=== PATIENT | female | born 1970 | race Caucasian/White ===

== ENCOUNTER 2016-07-09 18:37 | Emergency (ER) | payer BC ==
[2016-07-09 19:26] VITALS: BP 153/88
--- NOTE | 2016-07-09 20:01 | UC ---
Respiratory Complaint HPI - HPI Summary HPI Summary: PT C/O WORSENING SINUS PAIN AND PRESSURE OVER THE PAST WEEK. WORSE ON THE RIGHT THAN THE LEFT. HAS H/O RADICAL SINUS SURGERY IN 2008 IN [place]. HAS LOW GRADE FEVER AROUND 100.3. STATES HER NASAL PASSAGES AND SINUSES FEEL LIKE THEY ARE FILLED WITH FLUID. SHE USES A RINSE ROUTINELY AND FEELS IT IS NOT DRAINING IT NORMALLY DOES. REPORTS A FOUL ODOR WITHIN HER NASAL PASSAGES. - History of Current Complaint Chief Complaint: UCRespiratory Stated Complaint: SINUS COMPLAINT Time Seen by Provider: 07/09/16 19:45 Hx Obtained From: Patient, Family/Wic Site Coordinator - Hx Last Menstrual Period: 06/10/16 Onset/Duration: Gradual Onset, Lasting Days, Still Present Timing: Constant Severity Initially: Moderate Severity Currently: Moderate Pain Intensity: 10 - SITTING COMFORTABLY IN ROOM IN NO ACUTE DISTRESS Pain Scale Used: 0-10 Numeric Aggravating Factors: Nothing Alleviating Factors: Nothing Associated Signs And Symptoms: Positive: Fever, Nasal Congestion, Sinus Discomfort. Negative: Wheezing, Hemoptysis, Dizziness, Calf Pain, Calf Swelling , Edema, URI, Hoarseness - Allergies/Home Medications Allergies/Adverse Reactions: Allergies Allergy/AdvReac Type Severity Reaction Status Date / Time Hydrocodone Allergy Severe shallow Verified 07/09/16 19:27 breathing Hydromorphone [From Dilaudid] Allergy Intermediate Severe Verified 07/09/16 19: 27 migraine/ GI symptoms Midazolam [From Versed] Allergy Intermediate anxiety/ Verified 07/09/16 19:27 hallucinations Codeine Allergy shallow Verified 07/09/16 19:27 breathing Lorazepam [From Ativan] Allergy anxiety/helio Verified 07/09/16 19:27 lucinations Metoclopramide [From Reglan] Allergy panic Verified 07/09/16 19:27 attacks Oxycodone [From Percocet] Allergy shallow Verified 07/09/16 19:27 breathing Prochlorperazine Allergy tongue Verified 07/09/16 19:27 [From Compazine] swelling Topiramate [From Topamax] Allergy shaking Verified 07/09/16 19:27 Valproic Acid [From Depakote] Allergy Hallucinati Verified 07/09/16 19:27 ons DHE Allergy Intermediate According Uncoded 11/26/15 16:57 to patient Home Medications: Home Medications Norethindrone Acetate 5 mg PO 07/09/16 [History] PMH/Surg Hx/FS Hx/Imm Hx Endocrine History Of: Denies: Diabetes, Thyroid Disease, Hyperthyroidism, Hypothyroidism Cardiovascular History Of: Reports: Cardiac Disorders, Hypertension Denies: Pacemaker/ICD Respiratory History Of: Denies: COPD, Asthma GI/ History Of: Denies: Ulcer Neurological History Of: Denies: TIA, Seizures Psychological History Of: Denies: Anxiety, Depression Cancer History Of: Denies: Breast Cancer - Surgical History Surgical History: Yes Surgery Procedure, Year, and Place: bunion removed. sinus surgery 2007. 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 - Family History Known Family History: Positive: Cardiac Disease, Hypertension - Social History Alcohol Use: None Substance Use Type: None Smoking Status (MU): Never Smoked Tobacco Have You Smoked in the Last Year: No Review of Systems Constitutional: Fever ENT: Nasal Discharge, Other - SINUS PRESSURE Respiratory: Negative Cardiovascular: Negative Gastrointestinal: Negative Neurological: Headache All Other Systems Reviewed And Are Negative: Yes Physical Exam Triage Information Reviewed: Yes Appearance: Well-Appearing, No Pain Distress, Well-Nourished Vital Signs: Initial Vital Signs Temp 98.3 F 07/09/16 19:23 Pulse 105 07/09/16 19:23 Resp 12 07/09/16 19:23 BP 153/88 07/09/16 19:23 Pulse Ox 100 07/09/16 19:23 Vital Signs Reviewed: Yes Eyes: Positive: Conjunctiva Clear ENT: Positive: Hearing grossly normal, Pharynx normal, TMs normal Neck: Positive: Supple, Nontender, No Lymphadenopathy Respiratory Exam: Normal Cardiovascular: Positive: Tachycardia Abdomen Description: Positive: Soft Musculoskeletal: Positive: No Edema Neurological: Positive: Alert Psychological: Positive: Normal Response To Family, Age Appropriate Behavior Skin: Negative: rashes UC Diagnostic Evaluation - Laboratory O2 Sat by Pulse Oximetry: 100 Respiratory Course/Dx - Differential Dx/Diagnosis Provider Diagnoses: ACUTE SINUSITIS Discharge - Discharge Plan Condition: Stable Disposition: HOME Prescriptions: Amoxicillin/Clavulanate TAB* [Augmentin TAB 875*] 875 mg PO BID #28 tab Patient Education Materials: Sinusitis (ED) Referrals: Laurel Quintana MD [Primary Care Provider] - If Needed Additional Instructions: AUGMENTIN TO COVER FOR ACUTE BACTERIAL SINUSITIS. FOLLOW-UP WITH ENT. KEEP YOUR APPT IN [place] NEXT WEEK OR CALL THE NUMBER BELOW FOR AN APPT WITH ONE OF OUR LOCAL ENT PHYSICIANS. ENT IN [place] [facility] AND [place] [phone]
== END 2016-07-09 20:20 | disposition home or self-care (01) ==
LOC: UCEAST 18:37
DX: J01.90 Acute sinusitis, unspecified (principal); Z88.5 Allergy status to narcotic agent; Z88.8 Allergy status to other drugs, medicaments and biological substances
CPT/HCPCS: 99212; G0463

== ENCOUNTER 2018-03-20 19:11 | Emergency (ER) | payer BC ==
[2018-03-20 19:20] VITALS: BP 141/100
[2018-03-20] MEDS ORDERED: Tetracaine 0.5% OPTH.SOL 4 ML* 1 DROP BTL BOTH EYES ONE (19:31)
[2018-03-20] MEDS ORDERED: Fluorescein Sodium TOPICAL* 1 MG TEST STRIP OPHTHALMIC ONE (19:32)
[2018-03-20] MEDS ORDERED: Eye Irrigation Solution 30 ML BOTTLE BOTH EYES ONE (19:33)
[2018-03-20] MEDS ORDERED: Ondansetron ODT TAB* 4 MG PO ONE (19:51)
[2018-03-20] MEDS ORDERED: Ondansetron ODT TAB* 4 MG ONE (19:53)
--- NOTE | 2018-03-20 19:53 | UC ---
Eye Complaint HPI - HPI Summary HPI Summary: Was spraying chlorox connie cleaner overhead and some of the mist drifted down into both eyes. About 6:30 PM - History of Current Complaint Chief Complaint: UCEye Stated Complaint: CHEMICAL IN EYES Time Seen by Provider: 03/20/18 19:30 Hx Obtained From: Patient Hx Last Menstrual Period: 02/22/18 ?: No Onset/Duration: Sudden Onset, Lasting Hours - 1 hour Timing: Constant Severity Initially: Moderate Severity Currently: Moderate Pain Intensity: 6 Location of Injury: Conjunctiva Character: Sharp Aggravating Factor(s): Light, Blinking Alleviating Factor(s): Nothing Associated Signs And Symptoms: Positive: Photophobia. Negative: Drainage (Clear ), Drainage (Purulent), Vision Impairment Bilateral - Allergies/Home Medications Allergies/Adverse Reactions: Allergies Allergy/AdvReac Type Severity Reaction Status Date / Time codeine Allergy SHALLOW Verified 03/20/18 19:55 BREATHING divalproex sodium Allergy Hallucinati Verified 03/20/18 19:55 [From Depakote] ons hydrocodone Allergy SHALLOW Verified 03/20/18 19:55 BREATHING hydromorphone [From Dilaudid] Allergy SEVERE Verified 03/20/18 19:55 MIGRAINE, GI SYMPTOMS lorazepam [From Ativan] Allergy ANXIETY, Verified 03/20/18 19:55 HALLUCINATIONS metoclopramide [From Reglan] Allergy PANIC Verified 03/20/18 19:55 ATTACKS midazolam [From Versed] Allergy ANXIETY, Verified 03/20/18 19:55 HALLUCINATIONS oxycodone Allergy SHALLOW Verified 03/20/18 19:55 BREATHNG prochlorperazine Allergy TONGUE Verified 03/20/18 19:55 [From Compazine] SWELLING topiramate [From Topamax] Allergy SHAKING Verified 03/20/18 19:55 DHE* Allergy ACCORDING Uncoded 03/20/18 19:55 TO PT Home Medications: Home Medications Atenolol TAB* [Tenormin TAB* 25 MG] 12.5 mg PO DAILY 03/20/18 [History Confirmed 03/20/18] Mupirocin NASAL OINT (NF) [Bactroban NASAL OINT (NF)] 03/20/18 [History] PMH/Surg Hx/FS Hx/Imm Hx - Additional Past Medical History Additional PMH: Fibromyalgia - Surgical History Surgical History: Yes Surgery Procedure, Year, and Place: bunion removed. sinus surgery 2007. 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, UTERINE POLYP REMOVED 2017 - Family History Known Family History: Positive: Cardiac Disease, Hypertension - Social History Occupation: Employed Full-time Lives: With Family Alcohol Use: None Substance Use Type: None Smoking Status (MU): Never Smoked Tobacco Have You Smoked in the Last Year: No Review of Systems All Other Systems Reviewed And Are Negative: Yes Eyes: Positive: Eye Redness, Photophobia Musculoskeletal: Positive: Myalgia Is Patient Immunocompromised?: No Physical Exam Triage Information Reviewed: Yes Appearance: Well-Appearing, Well-Nourished, Pain Distress - moderate Vital Signs: Initial Vital Signs Temp 97.7 F 03/20/18 19:15 Pulse 92 03/20/18 19:15 Resp 18 03/20/18 19:15 BP 141/100 03/20/18 19:15 Pulse Ox 100 03/20/18 19:15 Vital Signs Reviewed: Yes Eyes: Positive: Conjunctiva Inflamed, Other: - disc's sharp fundi benign ENT: Positive: Pharynx normal, TMs normal Neck exam: Normal Respiratory Exam: Normal Cardiovascular Exam: Normal Abdominal Exam: Normal Musculoskeletal Exam: Normal Neurological Exam: Normal Psychological Exam: Normal Skin Exam: Normal Re-Evaluation - Re-Evaluation First Eval Change: Unchanged - still having pain. Fluorescein stain negative for uptake. Eye Complaint Course/Dx - Differential Dx/Diagnosis Differential Diagnosis/HQI/PQRI: Conjunctivitis, Corneal Abrasion, Keratitis Provider Diagnoses: Chemical conjunctivitis Discharge - Sign-Out/Discharge Documenting (check all that apply): Patient Departure All imaging exams completed and their final reports reviewed: No Studies - Discharge Plan Condition: Stable Disposition: HOME Patient Education Materials: [employer] [place] (ED) Referrals: Laurel Quintana MD [Primary Care Provider] - Additional Instructions: You can use ice for pain. Your bacitracin ointment would be fine to use as it could be soothing. - Billing Disposition and Condition Condition: STABLE Disposition: Home
[2018-03-20] MEDS ORDERED: NS 0.9% 1000 ML* 2,000 ML ONE (20:30)
--- OUTSIDE RECORDS SUMMARY | 2018-03-20 21:33 | XMS REPORT ---
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 Active Onset: 02/09/2012 Malaise and fatigue Cj Gusman M.D. Active Onset: 02/09/2012 Migraine variants, not intractable Cj Gusman M.D. Active Onset: 06/23/2014 Chronic fatigue syndrome Cj Gusman M.D. Active Onset: 06/23/2014 Dizziness and giddiness Cj Gusman M.D. Active Onset: 06/23/2014 Chronic Migraine W/Out Aura, Cj Gusman M.D. Active W/Intractable W/O Migrainosus Onset: 06/23/2014 Immunologic Cj Gusman M.D. Active Family History Date Family Member(s) Problem(s) Comments General Alzheimer's Disease Social History Type Date Description Comments Lives With ETOH Use Denies alcohol use Smoking Patient has never smoked Exercise Type/Frequency Exercises rarely Allergies, Adverse Reactions, Alerts Date Description Reaction Status Severity Comments 08/26/2010 Codeine active 08/26/2010 Hydrocodone active 08/26/2010 Depakote active 08/26/2010 Ativan active 08/26/2010 Reglan active 08/26/2010 Percocet active 08/26/2010 Dilaudid active 08/26/2010 Demerol active 08/26/2010 Compazine active 08/26/2010 Dhe active 09/19/2013 Topiramate active 10/08/2016 Uribel active Medications Medication Date Status Form Strength Qnty SIG Indications Ordering Provider Ondansetron 12/10 Active Tablets 4mg 90tab 1 tab by Juliet Dispers s mouth every Cowdery, 8 hours as M.D. needed for nausea Promethazine 02/21 Active Suppository 25mg 10uni [address] of ts rectum Cowdery, q-6-8 hours M.D. nausea as needed Zantac Active Tablets 150mg 60tab bid Unknown /0000 s Singulair Active Tablets 10mg 28tab 1 po qd Unknown /0000 s Lisinopril Active Tablets 10mg 90tab 1 tab po Unknown /0000 s daily Zomig Active Tablets 5mg 12tab 1 tablet at Juliet / s onset of Cowdery, headache as M.D. needed may repeat once in two hours: maximum 2 in 24 hours, maximum 2 days a week. Sudafed Active Tablets 30mg 20tab 1 po bid Unknown /0000 s prn Astelin Active Solution 137mcg/Sp 1mont 2 squirts Unknown /0000 ray atkinson in each nostril bid Nasonex Active Suspension 50mcg/Act 1unit 2 sprays to Unknown /0000 s each nostril once daily Azasite Active Solution 1% aply lower Unknown /0000 lid both eyes qhs prn blepharitis prn Gabapentin Active Tablets 600mg 1 1/2 tid Unknown /0000 Ariane Active Tablets 180mg 1 by mouth Unknown /0000 every day Nortriptyline Active Capsules 10mg 360ca take 4 Juliet / ps capsules by Cowdery, mouth at M.D. bedtime Lactulose Active Solution 10GM/15ML 3 droppers Unknown /0000 (30mg) by mouth every week as needed for constipatio n Tizanidine HCL Active Tablets 4mg 30tab take 1 Juliet s tablet by Cowconrady, mouth at M.D. bedtime Mupirocin Active Ointment 2% mix with Unknown saline, each nostril q day prn sinus infection Atenolol Active Tablets 25mg 1/2 by Unknown mouth every day Bacitracin Active Ointment 500Unit/G qhs Vilma, (Ophthalmic) / M Jenny, OD Norethindrone Active Tablets 0.35mg Take 1 Unknown Tablets By Mouth Every Day Benadryl Active Tablets 25mg 1 tab po qd Unknown Allergy / Vitamin D Active Tablets 1 by mouth Unknown every day Avenova Lash Active Solution spray into Unknown [place] / both eyes twice a day Vitamin D3 04/21 Hx Tablets 11671Flbm 12tab one tab by E55.9 s mouth once Wesley, - weekly for M.D. 03/04 Patient states she is no longer taking Pedialyte 01/15 Hx Solution 5760m Take as l directed Wesley, - every hour M.D. 02/19 as needed for dehydration Zofran Odt 01/06 Hx Tablets 8mg 30tab dissolve Dispers s one tablet Wesley, - by mouth M.D. 02/19 every hours as needed for nausea as directed as a one time quantity [id number] 02/11 Hx Chewtabs 1mg 90uni take one ts capsule/tab Wesley, - let prn M.D. 10/28 Cyanocobalamin 02/04 Hx Tablets Sub 2500mcg 90tab take one R76.0 s capsule/tab Wesley, - let daily M.D. 02/11 by mouth Ondansetron 10/07 Hx Tablets 8mg 90tab take 1 Dispers s under Cowlynn, - tongue q8 M.D. 12/10 hours needed nausea Ondansetron 11/08 Hx Tablets 4mg 30tab take 1-2 by Juliet Dispers s mouth Cowderbette, - w9ickty as M.D. 10/07 need for nausea Topiramate 01/26 Hx Caps 15mg 30cap take 1 po q Sprinkle s day as Estelita, - directed. M.D. 09/16 Ondansetron Odt 04/15 Hx Tablets 4mg 270ta take 1 po Dispers bs [id number] as Estelita, - need for M.D. 11/08 nausea Cymbalta 08/[address] Shamar 20mg 90cap 1 po qd s Endo, - M.D. 02/08 Jessica Hx Tablets .35mg 1tabs 1 po qd Unknown /0000 - 10/26 Gabapentin Hx Capsules 300mg 90cap 3 po tid Unknown /0000 s - 04/14 Fexofenadine Hx Tablets 180mg 90tab 1 po qd Unknown HCL /0000 s - 04/14 Naproxen Sodium Hx Tablets 220mg 60tab 1 po bid Unknown /0000 s prn - 04/14 Zofran Hx Tablets 4mg 40tab 1 q 6 hours Unknown /0000 s prn nausea - 04/14 Levaquin Hx Tablets 750mg 7tabs once daily Unknown /0000 - 04/14 Acetasol HC Hx Solution 2-1% 1bott 3-5 ggt Unknown /0000 le affected - ear bid prn 04/14 Gabapentin Hx Capsules 300mg 630ca 3 po q am, Unknown /0000 ps 3 po qnoon, - and 3 po 03/15 Bactrim Hx Tab 1 tab bid Unknown /0000 - 03/04 Prednisolone Hx Suspension 1% 1 drop each Unknown Acetate /0000 eye twice a - day prn 10/28 Erythromycin 00 Hx Ointment 5mg/GM 3.500 apply to Unknown /0000 gm affected - eyelid 05/04 every night /2014 at bedtime as needed Valtrex 00/00 Hx Tabs po bid Unknown /0000 - 07/19 Valtrex 00 Hx Tablets 1gm 1 by mouth Unknown /0000 bid (not - currently 02/0414/16) Zofran 00 Hx Tablets 4mg 1-2 tab by Unknown /0000 mouth every - 6 hours as 07/02 nausea Diflucan Hx Tablets 150mg 1 tab 1 Unknown /0000 dose as - needed 02/19 Norethindrone Hx Tablets 1.25mg 1 by mouth Unknown Acetate /0000 every day - 10/07 Tobramycin-Dexa Hx Suspension 0.3-0.1% 1 drop to Unknown methasone /0000 each eye - bid as 10/28 Doxycycline Hx Capsules 50mg as directed Cristiane, Hyclate /0000 as needed Josefa Mc MD 08/20 Estradiol Hx Patches 0.025mg/2 has not Unknown /0000 Weekly 4HR started yet - 02/19 Sulfamethoxazol Hx Tablets 800-160mg 1 tab po Zablkerri, e/Trimethoprim /0000 bid x Alexandro DS - 10days 03/04 Patient longer taking Medications Administered in Office Medication Date Status Form Strength Qnty SIG Indications Ordering Provider Depomedrol Administered Injection Dirk Luis Armando, 40MG 016 M.D. Vital Signs Date Vital Result Comment 03/05/2018 Height 63 inches 5'3" Weight 119.00 lb BP Systolic Sitting 120 mmHg BP Diastolic Sitting 88 mmHg BMI (Body Mass Index) 21.1 kg/m2 10/26/2017 Height 63 inches 5'3" Weight 118.00 lb Heart Rate 119 /min BP Systolic Sitting 132 mmHg BP Diastolic Sitting 83 mmHg Respiratory Rate 14 /min Pain Level 4 BMI (Body Mass Index) 20.9 kg/m2 08/21/2017 Height 63 inches 5'3" Weight 116.00 lb Heart Rate 90 /min BP Systolic Sitting 142 mmHg BP Diastolic Sitting 90 mmHg Respiratory Rate 15 /min BMI (Body Mass Index) 20.5 kg/m2 07/23/2017 Height 63 inches 5'3" Weight 115.00 lb Heart Rate 117 /min BP Systolic Sitting 136 mmHg BP Diastolic Sitting 95 mmHg Respiratory Rate 14 /min Pain Level 9 BMI (Body Mass Index) 20.4 kg/m2 06/15/2017 Height 63 inches 5'3" Weight 111.00 lb Heart Rate 90 /min BP Systolic Sitting 124 mmHg BP Diastolic Sitting 86 mmHg Respiratory Rate 18 /min Body Temperature 98.6 F BMI (Body Mass Index) 19.7 kg/m2 03/11/2017 Height 63 inches 5'3" Weight 121.00 lb Heart Rate 135 /min BP Systolic Sitting 152 mmHg BP Diastolic Sitting 91 mmHg Respiratory Rate 14 /min Pain Level 4 BMI (Body Mass Index) 21.4 kg/m2 02/20/2017 Height 63 inches 5'3" Weight 124.00 lb Heart Rate 122 /min BP Systolic Sitting 142 mmHg BP Diastolic Sitting 90 mmHg Respiratory Rate 16 /min BMI (Body Mass Index) 22.0 kg/m2 01/15/2017 Height 63 inches 5'3" Heart Rate 96 /min BP Systolic Sitting 147 mmHg BP Diastolic Sitting 96 mmHg Respiratory Rate 18 /min Pain Level 7 10/28/2016 Height 63 inches 5'3" 10/28/2016 Height 63 inches 5'3" Weight 123.25 lb Heart Rate 127 /min BP Systolic Sitting 131 mmHg BP Diastolic Sitting 88 mmHg Body Temperature 98.1 F Pain Level 10 BMI (Body Mass Index) 21.8 kg/m2 10/08/2016 Height 63 inches 5'3" Weight 125.00 lb Heart Rate 104 /min BP Systolic Sitting 148 mmHg BP Diastolic Sitting 90 mmHg Respiratory Rate 14 /min BMI (Body Mass Index) 22.1 kg/m2 07/08/2016 Height 63 inches 5'3" Weight 124.00 lb Heart Rate 72 /min BP Systolic 118 mmHg BP Diastolic 80 mmHg Respiratory Rate 16 /min Body Temperature 98.5 F BMI (Body Mass Index) 22.0 kg/m2 02/05/2016 Height 63 inches 5'3" Weight 126.00 lb Heart Rate 100 /min BP Systolic Sitting 140 mmHg BP Diastolic Sitting 80 mmHg Body Temperature 98.8 F Pain Level 7 BMI (Body Mass Index) 22.3 kg/m2 11/13/2015 Height 63 inches 5'3" Weight 125.00 lb Heart Rate 100 /min BP Systolic Sitting 128 mmHg BP Diastolic Sitting 80 mmHg Body Temperature 98.6 F Pain Level 9 BMI (Body Mass Index) 22.1 kg/m2 07/16/2015 Height 63 inches 5'3" Weight 127.00 lb Heart Rate 88 /min BP Systolic Sitting 120 mmHg BP Diastolic Sitting 70 mmHg Respiratory Rate 17 /min BMI (Body Mass Index) 22.5 kg/m2 06/13/2015 Height 63 inches 5'3" Weight 127.00 lb Heart Rate 68 /min Pain Level 9 BMI (Body Mass Index) 22.5 kg/m2 12/18/2014 Height 63 inches 5'3" Weight 127.00 lb Heart Rate 76 /min BP Systolic Sitting 150 mmHg BP Diastolic Sitting 86 mmHg Respiratory Rate 14 /min BMI (Body Mass Index) 22.5 kg/m2 07/19/2014 Height 63 inches 5'3" Weight 127.00 lb Heart Rate 92 /min BP Systolic Sitting 146 mmHg BP Diastolic Sitting 94 mmHg Respiratory Rate 16 /min BMI (Body Mass Index) 22.5 kg/m2 06/23/2014 Height 63 inches 5'3" Weight 128.50 lb Heart Rate 82 /min BP Systolic Sitting 110 mmHg BP Diastolic Sitting 80 mmHg Pain Level 9 BMI (Body Mass Index) 22.8 kg/m2 03/15/2014 Height 63 inches 5'3" Weight 126.00 lb Heart Rate 108 /min BP Systolic Sitting 128 mmHg BP Diastolic Sitting 80 mmHg Respiratory Rate 16 /min BMI (Body Mass Index) 22.3 kg/m2 09/19/2013 Height 63 inches 5'3" Weight 115.00 lb Heart Rate 90 /min BP Systolic Sitting 120 mmHg BP Diastolic Sitting 78 mmHg Respiratory Rate 16 /min BMI (Body Mass Index) 20.4 kg/m2 04/14/2013 Heart Rate 92 /min BP Systolic Sitting 128 mmHg BP Diastolic Sitting 72 mmHg Respiratory Rate 16 /min 02/09/2012 Height 63 inches 5'3" Weight 115.00 lb Heart Rate 71 /min BP Systolic Sitting 130 mmHg BP Diastolic Sitting 77 mmHg BMI (Body Mass Index) 20.4 kg/m2 06/20/2011 Height 63 inches 5'3" Weight 116.00 lb Heart Rate 74 /min BP Systolic Sitting 126 mmHg BP Diastolic Sitting 78 mmHg BMI (Body Mass Index) 20.5 kg/m2 08/26/2010 Height 63 inches 5'3" Weight 128.00 lb Heart Rate 72 /min BP Systolic 118 mmHg BP Diastolic 70 mmHg BMI (Body Mass Index) 22.7 kg/m2 Results Description No Information Procedures Date CPT Code Description Status 05/25/2017 Mammogram Completed 06/13/2015 99568 Inject/Drain Joint/Bursa Major W/O US Completed 10/12/2014 Mammogram Completed 09/28/2013 Mammogram Completed 09/17/2012 Mammogram Completed 07/16/2012 96584 Cardiac Event Monitor Completed 06/15/2012 01733 EKG Tracing & Interpretation Completed 09/02/2009 88502 EKG, Interpretation Only Completed 03/22/2008 21100 EKG, Interpretation Only Completed 03/22/2008 31713 EKG, Interpretation Only Completed Encounters Type Date Location Provider CPT E/M Dx Office Visit 10/26/2017 [facility] Pro Olson M.D. 91301 M54.5 3:00p Of [facility] M79.7 Office Visit 08/21/2017 3:30p [facility] Juliet Capone M.D. 00085 G43.919 Services Of Korin G89.29 Office Visit 07/23/2017 3:00p [facility] Of Pro Olson 86327 M79.7 Korin Stringer R53.82 R76.0 E55.9 Office Visit 06/15/2017 3:30p [facility], 62119 N64.59 Korin AVALOS Office Visit 03/11/2017 1:20p [facility] Pro Olson 83034 M35.01 Of Korin Stringer M79.7 Office Visit 02/20/2017 3:30p [facility] Juliet Capone M.D. 08342 G43.919 Services Of Korin R53.82 Office Visit 01/15/2017 3:40p [facility] Pro Olson 88621 M79.7 Korin Stringer K52.9 E53.8 G89.4 F41.9 Office Visit 10/28/2016 2:40p [facility] Pro Olson 57429 M79.7 Korin Stringer R76.0 E53.8 G43.919 R68.2 H04.123 Office Visit 10/08/2016 4:00p [facility] Juliet Capone M.D. 62946 G43.919 Services Of Korin G89.4 Office Visit 07/08/2016 2:45p [facility], 86047 N64.59 Korin AVALOS Office Visit 02/05/2016 3:20p [facility] Pro Olson 17908 M79.7 Of Korin Stringer R76.0 R20.8 M35.01 Office Visit 11/13/2015 3:00p [facility] Pro Olson, 05870 M79.7 Korin Stringer R20.8 L53.9 R68.2 H04.123 E53.8 M79.1 M35.01 L13.0 Office Visit 07/16/2015 3:15p [facility] Juliet Capone M.D. 12154 G43.919 Services Of Estimation Manager Office Visit 06/13/2015 3:00p [facility] Al Durán M.D. 26885 M65.812 Of C.M.Felipe Office Visit 12/18/2014 3:30p [facility] Juliet Capone M.D. 61016 346.91 Services Of Estimation Manager 338.4 780.71 787.01 Office Visit 07/19/2014 3:30p [facility] Juliet Capone M.D. 48991 338.4 Services Of Estimation Manager 780.71 346.91 Office Visit 06/23/2014 2:40p [facility] Cj Gusman M.D. 29671 338.4 Of Estimation Manager 780.71 346.71 780.4 795.79 Office Visit 03/15/2014 3:30p [facility] Juliet Capone M.D. 10185 346.71 Services Of Estimation Manager 338.4 780.79 780.4 Office Visit 09/19/2013 4:00p [facility] Juliet Capone M.D. 30118 346.71 Services Of Estimation Manager 338.4 780.79 Office Visit 04/14/2013 4:00p [facility] Juliet Capone M.D. 14053 346.71 Services Of Estimation Manager 338.4 Office Visit 01/26/2013 3:00p [facility] Juliet Capone M.D. 25564 346.71 Services Of Estimation Manager 338.4 Office Visit 07/28/2012 3:00p [facility] Juliet Capone M.D. 26163 346.91 Services Of Estimation Manager Office Visit 06/15/2012 3:00p [facility] Nichole Diana M.D. 11518 786.50 Estimation Manager 785.1 V17.3 Office Visit 04/15/2012 3:00p [facility] Juliet Capone M.D. 92096 346.71 Services Of Estimation Manager 729.1 Office Visit 02/09/2012 2:40p [facility] Cj Gusman M.D. 62515 338.4 Of Estimation Manager 780.79 346.92 Office Visit 12/11/2011 3:00p [facility] Juliet Capone, 58746 346.91 Services Of Estimation Manager M.D. Office Visit 06/20/2011 3:00p [facility] Cj Gusman 25060 536.2 Of Estimation Manager M.DDionne 346.92 338.4 Office Visit 08/26/2010 1:20p [facility] Cj Gusman M.D. 08732 729.1 Of Estimation Manager 388.70 780.79 Office Visit 09/04/2009 1:30a [facility], Kaila Medrano, 88741 787.01 Hospitalists M.DDionne Office Visit 09/03/2009 1:45a [facility], Kaila Medrano, 35513 787.01 Hospitalists Siomara 300.00 380.10 346.91 Office Visit 09/02/2009 1:45a [facility], Kaila Medrano, 48086 787.01 Hospitalists MDionneDDionne 346.91 380.10 473.9 Office Visit 09/01/2009 1:30a [facility], Kaila Medrano, 81737 787.01 Hospitalists MLisseth 346.91 473.9 380.10 Office Visit 08/31/2009 2:00a [facility], Brian Maynard M.D. 45014 787.01 Hospitalists 276.51 346.91 401.9 Office Visit 08/30/2009 3:30a [facility], Brian Maynard M.D. 14272 787.01 Hospitalists 276.51 346.91 783.0 Plan of Care Future Appointment(s):09/03/2018 4:00 pm - Juliet Capone M.D. at [facility]03/29/2018 3:00 pm - Pro Olson M.D. at [facility]03/05/2018 - Juliet Capone M.D.G89.29 Other chronic painFollow up:6 MONTHS (30 min)Recommendations:request copy of labs come to our office. Please call a week or two after you get your labs. Will send note to Dr. Aguayo and Dr. Sanford regarding possibility of increasing atenolol
--- OUTSIDE RECORDS SUMMARY | 2018-03-20 21:33 | XMS REPORT | Continuity of Care Document ---
:1970 External Reference #:[id number] Author Name [facility] Care Team Providers Name Role Phone Laurel Quintana MD. Primary Care Physician Unavailable Payers Type Date Identification Numbers Payment Provider Subscriber Expires: 2010 Policy Number: [id number] Aetjeannie Rand Sean Piña Group Number: [id number] [address] PayID: [id number] [place] [id number] Effective: 2012 Policy Number: [employer] ALEKSANDAR/FELIPE Campa [id number] [facility] PayID: [id number] [address] [address] [place] [address] Advance Directives Description No Information Available Problems Description No Active Problems Family History Date Family Member(s) Problem(s) Comments Father Aneurysm aortic Father Alzheimer's Disease Father Gout Father [place] X3 Father Hypercholesterolemia Father Hypertension Father Hypothyroidism Mother Breast Cancer Mother Cancer Thyroid Mother Melanoma Mother Colitis Mother Blockage in heart Mother Hypertension Mother TIA Mother problem with parathyroid Mother Endometrial CA Number of Children None Number of Siblings Siblings: none Paternal Grandfather due to CAD () Paternal Grandfather due to [place] () Paternal Grandmother due to Alzheimer's Disease () Maternal Grandfather due to Kidney Disease () Maternal Grandmother due to [place] () Social History Type Date Description Comments Sex Unknown Education Highest level of education completed is a bachelor's degree Marital Status Patient is Living Situation Lives with spouse Diet Diet is healthy and well balanced Occupation Disabled Employment Not currently working Cigarette Use Never smoked cigarettes Alcohol Does not drink alcohol Tobacco Use Start: Unknown Patient has never smoked Drug Use Denies drug use Smoking Status Reviewed: 03/12/18 Patient has never smoked Daily Caffeine Drinks on average 1 soda a day Exercise Type/Frequency Does not exercise Current Seat Belt/Car Seat Always uses a seat belt Currently Active The patient is currently sexually active Contraceptive Methods Shwetha STD's No STD history Allergies, Adverse Reactions, Alerts Date Description Reaction Status Severity Comments 06/26/2005 Hydrocodone Active 06/26/2005 Codeine Active 11/26/2015 Dhe According to patient Active Moderate 06/26/2005 Depakote Active 06/26/2005 Dilaudid Active 12/20/2008 Reglan Active 04/26/2009 Demerol Active 04/26/2009 Ativan Active 11/14/2010 Percocet Active 05/08/2011 Compazine Active 12/14/2014 Topamax Active 07/21/2012 Topamax Inactive Medications Medication Date Status Form Strength Qnty SIG Indications Ordering Provider Jessica 12/22 Active Tablets 0.35mg 28tab 1 by mouth s every day Siomara Arrington Phenergan 11/25 Active Suppository 25mg Tizanidine HCL 11/25 Active Capsules 4mg Benadryl 07/21 Active Tablets 25mg Ariane 07/21 Active Tablets 60mg Unknown Azasite 10/22 Active Solution 1% Singulair 10/22 Active Tablets 10mg Every Day Zofran Odt 10/22 Active Tablets 4mg prn For N/V Dispers Blephamide 10/22 Active Suspension 10-0.2% Nasonex 04/25 Active Suspension 50mcg/Act 1Bott 1 spray in le each nostril Siomara Arrington Nortriptyline Active 40mg 1 po qd Neurontin Active 300mg 3 po tid Fioricet Active Capsules 50-300-40 10cap take 1 tab mg s every 4-6 hours for migraine headache. do not exceed 4 tabs in 24 hours. Lisinopril Active 10mg 1 po qd Zantac Active 150mg 1 po bid Zomig Active 5mg prn migranes Sudafed 12 Active Unknown Azelastine HCL Active Solution 0.1% Unknown (Nasal) Jessica Active Unknown Lactulose Active Solution 10GM/15ML take 15 milliliters daily as needed for constipation Atenolol Active Neurontin 03/04 Hx Capsules 300mg 540ca 3 by mouth ps three times , Annamarie, - a day 03/04 Metrogel-Vagin 03/04 Hx Gel 0.75% 70gm use 1 Veronicadago applicator , Annamarie, - by way of 12/22 vagina Q x1 week Diflucan 03/04 Hx Tablets 150mg 1tabs take 1 pill after , Annamarie, - completion 12/22 of metrogel to prevent yeast infection Metrogel-Vagin 12/18 Hx Gel 0.75% 5unit 1 applicator s every night Nury, - at bedtime x M.D. 03/04 Sudogest 11/25 Hx Tablets 60mg - 12/09 Diflucan 11/25 Hx Tablets 150mg 1tabs Once - 12/09 Flagyl 11/25 Hx Tablets 500mg 14tab Twice Daily s - 12/09 Centany AT 07/21 Hx Kit 2% - 12/22 Kenalog 07/21 Hx Ointment 0.1% 60uni Twice Daily ts - 03/04 Diflucan 07/21 Hx Tablets 100mg 10tab Every Day s - 12/09 Fluconazole 05/13 Hx Tablets 150mg 2tabs take one tab po today Nury, - (Day 1), M.D. 12/14 skip day(Day 2) and take another tablet (Day 3) Metrogel-Vagin 05/11 Hx Gel 0.75% 5unit 1 applicator s every night Nury, - at bedtime x M.D. 12/14 Fluconazole /10 Hx Tablets 150mg 2tabs take one tab po today and MD Debra - one more PO 09/14 in 2-3 days /2013 Metronidazole 01/25 Hx Gel 0.75% 1tube insert one Phaelon Vaginal applicatorfu MD Debra - l pv qhs for 02/10 5 days /2012 Metronidazole 01/04 Hx Tablets 500mg 14tab take one tab Phaelon s po bid for 7 MD Debra - days 02/10 Neurontin 10/22 Hx Capsules 100mg Three Times Unknown Daily - 12/02 Motrin 10/22 Hx Tablets 600mg prn For Pain Repack - 12/02 Prinivil 10/22 Hx Tablets 10mg Every Day Unknown - 12/09 Nortriptyline 10/22 Hx Capsules 10mg Every Day Unknown /2012 - 12/09 Zantac 75 10/22 Hx Tablets 75mg Every Day Unknown - 12/09 Zomig 10/22 Hx Tablets 2.5mg Unknown - 12/09 Cipro 09/13 Hx Tablets 250mg 20tab 1 po bid x Whitlye s 10 Randa - ANP-C 09/13 Tetracycline 09/13 Hx Capsules 250mg Whitley HCL /2012 Randa - ANP-C 09/13 Septra DS 09/13 Hx Tablets 800-160mg 14tab 1 po bid x7 Whitley s Josefa Tolentino ANP-C 09/20 Fluconazole 03/09 Hx Tablets 150mg 1tabs take one tab po x 1 Josefa Arrington M.D. 05/23 Diflucan 08/25 Hx Tablets 100mg 6tabs take 2 tabs now. take 1 Yared, - tab qd for 4 Nystatin/Triam 08/20 Hx Cream 028014-7. 15gms use tid to Cira 1Unit/GM- affected Yared, - % area prn 03/09 Diflucan 08/20 Hx Tablets 150mg 3tabl 1 po qd et Yoandy Calix, - CNM 03/09 Jessica 03/18 Hx Tablets 0.35mg 28tab 1 by mouth s every day, Josefa ArringtonosSiomara leyva 08/07p /2016 placebos Ciprofloxacin 01/03 Hx Tablets 500mg 14tab 1 po bid Yudith s [facility], 01/03 Cipro 01/03 Hx Tablets 500mg 14tab 1 po bid s [facility], 05/08 Doxycycline 12/16 Hx Tablets 100mg 14tab 1 tablet Yudith Hycl s every 12 [facility], 05/08 Terconazole 11/26 Hx Suppository 80mg 7nigh as directed Yudith t [facility], 05/08 Metronidazole 11/26 Hx Gel 0.75% 1Tube as directed [facility], 11/26 Lotrisone 11/26 Hx Cream 1-0.05% 1tube external use only at [facility], 05/08 Metronidazole 11/26 Hx Tablets 500mg 14tab 1 tablet Yudith s every 12 [facility], 05/08 no alcohol while taking medication Diflucan 11/14 Hx Tablets 150mg 1tabs 1 po times 1 Wilder A. day, repeat Carol - in 3 days if M.D. 11/26 Premarin 09/19 Hx Tablets 0.3mg 90tab 1 po qd Wilder A. s Josefa Medina M.D. 09/19 Premarin 09/19 Hx Tablets 0.3mg 1 po qd last A. week of Carol, - cycle M.D. 05/08 Doxycycline 07/03 Hx Capsules 100mg 28cap 1 po bid x Whitley Monohydrate s 14 Josefa Tolentino 10/17 Diflucan 05/31 Hx Tablets 150mg 3tabs 1 po Every Whitley other day Josefa Tolentino 06/01 Ariane 04/25 Hx Suspension 30mg/5ML Dvora Josefa Arrington M.D. 05/08 Jessica 04/23 Hx Tablets 0.35mg 28tab 1 po qd Dvora Josefa Oden M.D. 06/19 Nor-qd 06/26 Hx Tablets 0.35mg 28tab 1 po qd Dvora Josefa Oden M.D. 04/23 Zelnorm 00/00 Hx Unknown / - 01/18 Cingulair 00/00 Hx Unknown / - 01/18 Sudafed 00/00 Hx Unknown / - 12/19 Singulair 00/00 Hx 10mg 1 po qd Unknown / - 12/09 Prilosec 00/00 Hx Unknown / - 11/14 Prevacid 00/00 Hx Unknown / - 05/23 Zofran / Hx 4mg prn / - 12/09 Tizanidine HCL Hx Tablets 2mg 2 po qhs Unknown - 12/09 Augmentin 00/ Hx Unknown / - 02/10 Topamax Hx Tablets 15mg 1 po qd Unknown / - 12/14 Valtrex 00/ Hx Unknown / - 12/02 Ariane /00 Hx Unknown Allergy / - 12/09 Mupirocin Hx Ointment 2% 03/04 Linzess Hx Unknown - 12/22 Medications Administered in Office Medication Date Status Form Strength Qnty SIG Indications Ordering Provider PT SCRN Tbco Administered Injection Bianca, Id as Non User 018 MD Annamarie Immunizations Description No Information Available Vital Signs Date Vital Result Comment 03/12/2018 3:23pm BP Systolic 142 mmHg BP Diastolic 88 mmHg Height 63 inches 5'3" Weight 118.00 lb BMI (Body Mass Index) 20.9 kg/m2 Last Menstrual Period [id number] 0 Parity 0 01/19/2018 3:05pm BP Systolic 140 mmHg BP Diastolic 84 mmHg Height 63 inches 5'3" Weight 118.00 lb BMI (Body Mass Index) 20.9 kg/m2 Last Menstrual Period [id number] 0 12/22/2016 3:33pm BP Systolic 142 mmHg BP Diastolic 94 mmHg Height 63 inches 5'3" Weight 120.00 lb BMI (Body Mass Index) 21.3 kg/m2 Last Menstrual Period [id number] 0 Parity 0 08/07/2016 12:33pm BP Systolic 140 mmHg BP Diastolic 90 mmHg BP Systolic Recheck 120 mmHg BP Diastolic Recheck 86 mmHg Body Temperature 98.5 F Height 63 inches 5'3" Weight 127.00 lb BMI (Body Mass Index) 22.5 kg/m2 Last Menstrual Period [id number] 0 Parity 0 03/04/2016 1:01pm BP Systolic 130 mmHg BP Diastolic 90 mmHg Height 63 inches 5'3" Weight 127.00 lb BMI (Body Mass Index) 22.5 kg/m2 Last Menstrual Period [id number] 0 Parity 0 12/19/2015 2:55pm BP Systolic 134 mmHg BP Diastolic 70 mmHg Height 63 inches 5'3" Weight 127.00 lb BMI (Body Mass Index) 22.5 kg/m2 Last Menstrual Period [id number] 0 Parity 0 12/10/2015 1:43pm BP Systolic 112 mmHg BP Diastolic 64 mmHg Height 63 inches 5'3" Weight 125.00 lb BMI (Body Mass Index) 22.1 kg/m2 Last Menstrual Period [id number] 0 Parity 0 11/26/2015 12:00am BP Systolic 129 mmHg BP Diastolic 76 mmHg Body Temperature 99.4 F Heart Rate 110 /min Respiratory Rate 16 /min Height 63 inches Weight 130.00 lb 02/14/2015 1:01pm BP Systolic 128 mmHg BP Diastolic 88 mmHg Height 63.25 inches 5'3.25" Weight 129.00 lb BMI (Body Mass Index) 22.7 kg/m2 Last Menstrual Period [id number] 0 Parity 0 12/14/2014 1:32pm BP Systolic 156 mmHg BP Diastolic 86 mmHg Height 63.25 inches 5'3.25" Weight 127.00 lb BMI (Body Mass Index) 22.3 kg/m2 Last Menstrual Period [id number] 0 Parity 0 05/11/2014 12:18pm BP Systolic 130 mmHg BP Diastolic 84 mmHg Height 63.25 inches 5'3.25" Weight 128.00 lb BMI (Body Mass Index) 22.5 kg/m2 Last Menstrual Period [id number] 0 Parity 0 09/15/2013 1:02pm BP Systolic 128 mmHg BP Diastolic 82 mmHg Height 63.25 inches 5'3.25" Weight 118.00 lb BMI (Body Mass Index) 20.7 kg/m2 Last Menstrual Period [id number] 0 03/01/2013 2:03pm BP Systolic 114 mmHg BP Diastolic 70 mmHg Height 62.75 inches 5'2.75" Weight 119.00 lb BMI (Body Mass Index) 21.2 kg/m2 Last Menstrual Period [id number] 0 02/10/2013 1:39pm BP Systolic 142 mmHg BP Diastolic 82 mmHg Height 62.75 inches 5'2.75" Weight 118.00 lb BMI (Body Mass Index) 21.1 kg/m2 Last Menstrual Period [id number] 01/04/2013 1:31pm BP Systolic 122 mmHg BP Diastolic 84 mmHg Height 63.25 inches 5'3.25" Weight 121.00 lb BMI (Body Mass Index) 21.3 kg/m2 Last Menstrual Period [id number] 0 10/21/2012 1:55pm BP Systolic 120 mmHg BP Diastolic 74 mmHg Height 63.25 inches 5'3.25" Weight 118.00 lb BMI (Body Mass Index) 20.7 kg/m2 Last Menstrual Period [id number] 09/30/2012 2:15pm BP Systolic 130 mmHg BP Diastolic 78 mmHg Height 63.25 inches 5'3.25" Weight 118.00 lb BMI (Body Mass Index) 20.7 kg/m2 Last Menstrual Period [id number] 0 Parity 0 09/09/2012 2:44pm BP Systolic 118 mmHg BP Diastolic 74 mmHg Height 63 inches 5'3" Weight 118.00 lb BMI (Body Mass Index) 20.9 kg/m2 Last Menstrual Period [id number] 0 Parity 0 07/21/2012 2:03pm BP Systolic 116 mmHg BP Diastolic 76 mmHg Height 63 inches 5'3" Weight 117.00 lb BMI (Body Mass Index) 20.7 kg/m2 Last Menstrual Period [id number] 06/17/2012 2:36pm BP Systolic 142 mmHg BP Diastolic 90 mmHg Height 63 inches 5'3" Weight 118.00 lb BMI (Body Mass Index) 20.9 kg/m2 Last Menstrual Period [id number] 03/11/2012 1:59pm BP Systolic 120 mmHg BP Diastolic 80 mmHg Height 63 inches 5'3" Weight 119.00 lb BMI (Body Mass Index) 21.1 kg/m2 Last Menstrual Period [id number] 0 Parity 0 03/09/2012 1:38pm BP Systolic 136 mmHg BP Diastolic 92 mmHg Body Temperature 98.6 F Weight 121.00 lb Last Menstrual Period [id number] 08/21/2011 3:05pm BP Systolic 108 mmHg BP Diastolic 66 mmHg Height 62.25 inches 5'2.25" Weight 118.00 lb BMI (Body Mass Index) 21.4 kg/m2 Last Menstrual Period [id number] 0 05/08/2011 2:43pm BP Systolic 112 mmHg BP Diastolic 66 mmHg Height 62.5 inches 5'2.50" Weight 116.00 lb BMI (Body Mass Index) 20.9 kg/m2 Last Menstrual Period [id number] 11/26/2010 1:08pm BP Systolic 124 mmHg BP Diastolic 76 mmHg Height 62.5 inches 5'2.50" Weight 130.00 lb BMI (Body Mass Index) 23.4 kg/m2 11/14/2010 1:39pm BP Systolic 120 mmHg BP Diastolic 78 mmHg Height 62.5 inches 5'2.50" Weight 128.00 lb BMI (Body Mass Index) 23.0 kg/m2 Last Menstrual Period [id number] 0 Parity 0 09/26/2010 10:57am BP Systolic 120 mmHg BP Diastolic 76 mmHg Height 62.5 inches 5'2.50" Weight 127.00 lb BMI (Body Mass Index) 22.9 kg/m2 Last Menstrual Period [id number] 0 09/19/2010 3:39pm BP Systolic 112 mmHg BP Diastolic 74 mmHg Height 62.5 inches 5'2.50" Weight 127.00 lb BMI (Body Mass Index) 22.9 kg/m2 Last Menstrual Period [id number] 0 09/02/2010 3:39pm BP Systolic 120 mmHg BP Diastolic 78 mmHg Height 62.5 inches 5'2.50" Weight 127.00 lb BMI (Body Mass Index) 22.9 kg/m2 Last Menstrual Period [id number] 0 06/25/2010 1:02pm BP Systolic 120 mmHg BP Diastolic 82 mmHg Height 63.75 inches 5'3.75" Weight 132.00 lb BMI (Body Mass Index) 22.8 kg/m2 Last Menstrual Period [id number] 0 06/19/2010 1:51pm BP Systolic 132 mmHg BP Diastolic 80 mmHg Height 63.75 inches 5'3.75" Weight 131.00 lb BMI (Body Mass Index) 22.7 kg/m2 Last Menstrual Period [id number] 0 05/31/2010 2:42pm BP Systolic 100 mmHg BP Diastolic 60 mmHg Height 63.75 inches 5'3.75" Weight 129.00 lb BMI (Body Mass Index) 22.3 kg/m2 04/25/2010 1:46pm BP Systolic 120 mmHg BP Diastolic 78 mmHg Height 63.75 inches 5'3.75" Weight 131.00 lb BMI (Body Mass Index) 22.7 kg/m2 Last Menstrual Period [id number] 04/26/2009 11:01am BP Systolic 110 mmHg BP Diastolic 76 mmHg Height 63.75 inches 5'3.75" Weight 125.00 lb BMI (Body Mass Index) 21.6 kg/m2 Last Menstrual Period [id number] 0 12/20/2008 1:26pm BP Systolic 124 mmHg BP Diastolic 70 mmHg Height 63.75 inches 5'3.75" Weight 123.00 lb BMI (Body Mass Index) 21.3 kg/m2 Last Menstrual Period [id number] 0 02/28/2008 3:50pm BP Systolic 118 mmHg BP Diastolic 70 mmHg Height 63.75 inches 5'3.75" Weight 119.00 lb BMI (Body Mass Index) 20.6 kg/m2 Last Menstrual Period [id number] 0 09/09/2007 11:18am BP Systolic 120 mmHg BP Diastolic 68 mmHg Height 63.75 inches 5'3.75" Weight 121.00 lb BMI (Body Mass Index) 20.9 kg/m2 Last Menstrual Period [id number] 08/20/2007 1:51pm BP Systolic 120 mmHg BP Diastolic 60 mmHg Height 63.75 inches 5'3.75" Weight 121.00 lb BMI (Body Mass Index) 20.9 kg/m2 Last Menstrual Period [id number] 08/04/2007 11:18am BP Systolic 128 mmHg BP Diastolic 72 mmHg Height 63 inches 5'3" Weight 125.00 lb BMI (Body Mass Index) 22.1 kg/m2 Last Menstrual Period [id number] 05/06/2007 3:26pm BP Systolic 120 mmHg BP Diastolic 78 mmHg Height 63 inches 5'3" Weight 128.00 lb BMI (Body Mass Index) 22.7 kg/m2 Last Menstrual Period [id number] 01/18/2007 9:16am BP Systolic 152 mmHg BP Diastolic 96 mmHg BP Systolic Recheck 130 mmHg after exam, having migrane and took sudafed BP Diastolic Recheck 86 mmHg after exam, having migrane and took sudafed Height 63 inches 5'3" Weight 121.00 lb BMI (Body Mass Index) 21.4 kg/m2 Last Menstrual Period [id number] 0 Parity 0 11/27/2005 1:29pm BP Systolic 140 mmHg C/O chest pain, advised to contact PCP BP Diastolic 90 mmHg C/O chest pain, advised to contact PCP Height 63 inches 5'3" Weight 127.00 lb BMI (Body Mass Index) 22.5 kg/m2 09/18/2005 12:32pm BP Systolic 120 mmHg BP Diastolic 90 mmHg Height 63 inches 5'3" Weight 124.00 lb BMI (Body Mass Index) 22.0 kg/m2 08/06/2005 3:08pm BP Systolic 128 mmHg BP Diastolic 84 mmHg Height 63 inches 5'3" Weight 123.00 lb BMI (Body Mass Index) 21.8 kg/m2 Last Menstrual Period [id number] 06/26/2005 9:09am BP Systolic 110 mmHg BP Diastolic 78 mmHg Body Temperature 98.7 F Results Test Date Facility Test Result H/L Range Note Laboratory test 01/20/2018 [facility] Cytology [place] RESULT 1 [place] [address] BEL[place] [phone] Laboratory test 12/22/2016 [facility] Cytology SEE RESULT 2 finding [place] [address] BELOW [phone] Human Papilloma Virus Rna Negative Negative 3 Laboratory test 03/04/2016 [facility] Surgical SEE RESULT 4 finding [place] [address] Pathology BELOW [phone] Laboratory test 12/19/2015 [facility] Cytology SEE RESULT 5 finding [place] [address] BELOW [phone] Human Papilloma Virus Rna Negative Negative 6 Laboratory test 12/19/2015 [facility] Culture Genital & SEE RESULT 7 [place] [address] Sensitivity BELOW [phone] Urine Culture And 12/10/2015 [facility] Urine Culture SEE RESULT 8 Sensitivities [place] [address] BELOW [phone] Laboratory test 12/10/2015 [facility] Culture Genital & SEE RESULT 9 [place] [address] Sensitivity BELOW [phone] Laboratory test 12/14/2014 [facility] Culture Genital & SEE RESULT 10 finding [place] [address] Sensitivity BELOW [phone] Laboratory test 12/14/2014 [facility] Cytology SEE RESULT 11 finding [place] [address] BELOW [phone] Urine Culture And 05/11/2014 [facility] Urine Culture (SEE NOTE ) 12 Sensitivities [place] [address] [phone] Laboratory test 05/11/2014 [facility] Genital Culture (SEE NOTE ) 13 finding [place] [address] [phone] Laboratory test 09/15/2013 [facility] Genital Culture (SEE NOTE ) 14 finding [place] [address] [phone] Laboratory test 09/15/2013 [facility] Cytology RUN DATE: 15 finding [place] [address] <SEE [phone] NOTE> Laboratory test 03/01/2013 [facility] Fungal Cult - Other (SEE NOTE) 16 finding [place] [address] Sources [phone] Laboratory test 03/01/2013 [facility] Genital Culture (SEE NOTE ) 17 finding [place] [address] [phone] GC/Chlamydia Dna 10/21/2012 [facility] GC/Chlamydia Rna (SEE NOTE) 18 Probe [place] [address] [phone] Laboratory test 10/21/2012 [facility] Genital Culture (SEE NOTE ) 19 finding [place] [address] [phone] Laboratory test 09/30/2012 [facility] Genital Culture (SEE NOTE ) 20 finding [place] [address] [phone] Laboratory test 09/09/2012 [facility] Genital Culture (SEE NOTE ) 21 finding [place] [address] [phone] Laboratory test 06/17/2012 [facility] Surgical Pathology RUN DATE: 22 finding [place] [address] <SEE [phone] NOTE> Laboratory test 06/17/2012 [facility] Cytology RUN DATE: 23 finding [place] [address] <SEE [phone] NOTE> Human Papilloma 06/17/2012 [facility] [place] [address] Papillomavirus [phone] Source Human Papillomavirus High Risk Negative Negative 24 Laboratory test 06/17/2012 [facility] Cytology RUN DATE: 25 finding MARYLOU [place]ms <SEE [phone] NOTE> Urine Culture & 08/21/2011 [facility] M 26 Sensitivi [place] [address] ---- <SEE [phone] NOTE> Laboratory test 08/21/2011 [facility] Genital Culture -- 27 finding [place] [address] ---- <SEE [phone] NOTE> Laboratory test 08/21/2011 [facility] Mycoplasma see note 28 finding Hominis/Ureaplas ma Culture Laboratory test 05/08/2011 [facility] Cytology 29 finding [place] ---- <SEE [phone] NOTE> Laboratory test 04/18/2011 [facility] Thyroxine Free 0.62 ng/dL 0.61- [place] [address] 1.24 [phone] T3 Total 1.09 NG/ML 0.5-1.7 T3 Free 2.74 pg/mL 2.39-6.79 TSH 0.91 MIU/ML 0.34-5.60 FSH 10.26 MIU/ML 30 Lutenizing Hormone 9.52 MIU/ML 31 Prolactin 14.90 NG/ML 1.0-25.0 Cortisol 11.4 g/dL 32 Estradiol 47 pg/mL 33 Progesterone 0.4 NG/ML 34 Urine Culture & 12/16/2010 [facility] Urine Culture GROUP D 35, 36 [place] [address] Sensitivi ENTEROCO [phone] <SEE NOTE> Sensitivities For 12/16/2010 [facility] Ampicillin <=2 [place] [address] [phone] Ciprofloxacin <=0.5 Nitrofurantoin <=16 High Level Gentamicin SYN-S High Level Streptomycin SYN-S Levofloxacin 1 Penicillin 2 Tetracycline >=16 Tigecycline <=0.12 Vancomycin 1 Genital Culture 11/14/2010 [facility] Genital Culture YEAST 37 [place] [address] [phone] Genital Culture NORMAL TAMIKO 38 Laboratory test 09/25/2010 [facility] M.Hominis/Ureaplasma see note 39 finding Culture Laboratory test 09/19/2010 [facility] M.Hominis/Ureaplasma see note 40 finding Culture Laboratory test 09/02/2010 [facility] Genital Culture NF3 41 [place] [address] [phone] Laboratory test 09/02/2010 [facility] M.Hominis/Ureaplasma (SEE 42 finding Culture NOTE) Laboratory test 06/25/2010 [facility] Culture TNP 43, 44 [place] [address] Sensitivity/Gram St [phone] Culture Sensitivity NORMAL EXPECTED <SEE NOTE> 45 Laboratory test 06/25/2010 [facility] M.Hominis/Ureaplasma see note 46 finding Culture GC/Chlamydia 06/25/2010 [facility] Chlamydia Trachomatis Rna N [address] [place] [address] [phone] Laboratory test 06/25/2010 [facility] GC (N. Gonorrhoeae) Rna N 48 finding [place] [address] [phone] Laboratory test 06/19/2010 [facility] Genital Culture NF3 49, 50 finding [place] [address] [phone] Laboratory test 04/25/2010 [facility] Cytology --------- 51 finding [place] [address] ------- [phone] <SEE NOTE> Laboratory test 04/26/2009 [facility] Cytology --------- 52 [place] [address] ------- [phone] <SEE NOTE> Laboratory test 12/20/2008 [facility] FSH 7.22 53 finding [place] [address] MIU/ML [phone] Lutenizing Hormone 5.64 MIU/ML 54 Thyroid 12/20/2008 [facility] Thyroglobulin AB <1.8 <4.0 55 [place] [address] Screen IU/mL [phone] Thyroperoxidase AB 0.6 IU/mL <9.0 Type And Screen 12/20/2008 [facility] Patient [place] [address] [phone] Antibody Screen NEGATIVE Lipid Profile 12/20/2008 [facility] Triglyceride 69 mg/dL 40- 200 (Trig/Chol/HDL) [place] [address] [phone] Cholesterol 204 mg/dL High Less Than 200 56 High Density Lipoprotein 66 mg/dL High 40-60 57 Cholesterol/HDL Ratio 3.09 AVERAGE 1-4.44 Low Density Lipoprotein 124 mg/dL High Less Than 100 58 Laboratory test 12/20/2008 [facility] TSH 0.98 MIU/ML 0.34- 5.60 [place] [address] [phone] Thyroxine Free 0.80 NG/ML 0.61-1.24 59 Laboratory test 02/28/2008 [facility] Cytology <SEE 60 [place] [address] NOTE> [phone] Laboratory test 01/18/2007 [facility] Cytology <SEE [address] [place] [address] NOTE> [phone] Pap Test 08/08/2005 [facility] Cytology Run: 08/12/05 16 <SEE [address] [place] [address] NOTE> [phone] 1 SEE RESULT BELOW Name: SEAN PIÑA : [address]: Annamarie Valenzuela MD Acct: [id number] Unit: [id number] AGE: 47 Location: [facility] Re01/20/18 SEX: F Status: REG REF SPEC: [id number] TARA: 01/20/[address] [facility] [address]: Annamarie Valenzuela MD REQ: [id number] RECD: 01/20/18 STATUS: JORDAN WELLINGTON DR: Laurel Quintana MD _ ORDERED: TP IMAGE ANALYS, HPV/Thin Prep COMMENTS: [id number] Negative for Intraepithelial lesion or Malignancy Date Time Test Result Flag (u) Normal Range 01/20/18 0827 @ HPV RNA Negative Negative @ @ The high-risk HPV types detected by the assay include: 16, @ 18, 31, 33, 35, 39, 45, 51, 52, 56, 58, 59, 66, and 68. A. Ectocervical/Endocervical Specimen Adequacy: Satisfactory of evaluation Transformation zone component identified Patient Information: HPV: High risk HPV RNA testing regardless of pap results. Actual Specimen Date: 01/20/18 Last Menstrual Date: 12/27/17 Date of Last Specimen: 12/22/16 Signed by and Reported on: YEE Reyes(ASCP) [id number] This Pap test was evaluated with the assistance of the EcastPrep Test Imaging System. Due to cytologic findings at the unemployment specialist microscope, comprehensive manual rescreening by a Marketing Writer may be required. The Pap Smear is a screening test designed to aid in the detection of premalignant and malignant conditions of the uterine cervix. It is not a diagnostic procedure and should not be used as the sole means of detecting cervical cancer. Both false- positive and false- negative reports do occur. Depending on your risk status, a Pap smear should be obtained and evaluated every 1-3 years. END OF REPORT DEPARTMENT OF PATHOLOGY, [address] [place] [address] Mark Dodd M.D. Director [facility] # [id number] 2 SEE RESULT BELOW Name: SEAN PIÑA : [address]: Rj Arrington MD Acct: [id number] Unit: [id number] AGE: 46 Location: [facility] Re12/22/16 SEX: F Status: REG REF SPEC: [id number] TARA: 12/22/16-[address] [facility] [address]: Rj Arrington MD REQ: [id number] RECD: 12/23/16 STATUS: SOUT _ ORDERED: TP IMAGE ANAL, HPV/Thin Prep COMMENTS: [id number] FINAL DIAGNOSIS Negative for Intraepithelial lesion or Malignancy A. Ectocervical/Endocervical Specimen Adequacy: Satisfactory of evaluation Transformation zone component identified Patient Information: HPV: High risk HPV RNA testing regardless of pap results. Actual Specimen Date: 12/22/16 Last Menstrual Date: 11/24/16 Date of Last Specimen: 12/19/15 Date Time Test Result Flag (u) Normal Range 12/22/16 1625 HPV RNA Negative Negative The high-risk HPV types detected by the assay include: 16, 18, 31, 33, 35, 39, 45, 51, 52, 56, 58, 59, 66, and 68. Signed (signature on file) YEE Shields (ASCP) 12/24 1321 This Pap test was evaluated with the assistance of the ThinPrep Test Imaging System. Due to cytologic findings at the unemployment specialist microscope, comprehensive manual rescreening by a Marketing Writer may be required. The Pap Smear is a screening test designed to aid in the detection of premalignant and malignant conditions of the uterine cervix. It is not a diagnostic procedure and should not be used as the sole means of detecting cervical cancer. Both false- positive and false- negative reports do occur. Depending on your risk status, a Pap smear should be obtained and evaluated every 1-3 years. END OF REPORT * ML=Testing performed at Main Lab DEPARTMENT OF PATHOLOGY, [address] [place] [address] Mark Dodd M.D. Director [facility] # [id number] 3 The high-risk HPV types detected by the assay include: 16, 18, 31, 33, 35, 39, 45, 51, 52, 56, 58, 59, 66, and 68. 4 SEE RESULT BELOW Name: SEAN PIÑA : [address]: Annamarie Valenzuela MD Acct: [id number] Unit: [id number] AGE: 45 Location: [facility] Re03/04/16 SEX: F Status: REG REF SPEC: [id number] TARA: 03/04/16-[address] [facility] [address]: Annamarie Valenzuela MD REQ: [id number] RECD: 03/05/16 STATUS: SOUT _ ORDERED: LEVEL IV COMMENTS: [id number] FINAL DIAGNOSIS Uterus, cervix, biopsy: -- Benign endocervical polyp. PRE-OPERATIVE DIAGNOSIS Cervical polyp GROSS DESCRIPTION The specimen is received in formalin labeled, Cervical Polyp, and consists of a 0.8 x 0.3 x 0.2 cm speckled beltran-brown polypoid soft tissue fragment, which is entirely submitted in one cassette. Signed (signature on file) Mark Dodd MD [id number] END OF REPORT * ML=Testing performed at Main Lab DEPARTMENT OF PATHOLOGY, [address] [place] [address] Mark Dodd M.D. Director [facility] # [id number] 5 SEE RESULT BELOW Name: SEAN PIÑA Manny : [address]: Rj Arrington MD Acct: [id number] Unit: [id number] AGE: 45 Location: [facility] Re12/19/15 SEX: F Status: REG REF SPEC: [id number] TARA: 12/19/15-[address] [facility] [address]: Rj Arrington MD REQ: [id number] RECD: 12/20/15-123 STATUS: SOUT _ ORDERED: IMAGE ANALYSIS, HPV/Thin Prep COMMENTS: [id number] FINAL DIAGNOSIS Negative for Intraepithelial lesion or Malignancy A. Ectocervical/Endocervical Specimen Adequacy: Satisfactory of evaluation Transformation zone component identified Patient Information: HPV: High risk HPV RNA testing regardless of pap results. Actual Specimen Date: 12/19/15 Last Menstrual Date: 12/16/15 Date of Last Specimen: 12/17/14 Date Time Test Result Flag (u) Normal Range 12/19/15 1411 HPV RNA Negative Negative The high-risk HPV types detected by the assay include: 16, 18, 31, 33, 35, 39, 45, 51, 52, 56, 58, 59, 66, and 68. Signed (signature on file) Dontae YEE Vega(ASCP) 12/23 0923 This Pap test was evaluated with the assistance of the Barspace Test Imaging System. Due to cytologic findings at the unemployment specialist microscope, comprehensive manual rescreening by a Marketing Writer may be required. The Pap Smear is a screening test designed to aid in the detection of premalignant and malignant conditions of the uterine cervix. It is not a diagnostic procedure and should not be used as the sole means of detecting cervical cancer. Both false- positive and false- negative reports do occur. Depending on your risk status, a Pap smear should be obtained and evaluated every 1-3 years. END OF REPORT * ML=Testing performed at Main Lab DEPARTMENT OF PATHOLOGY, [address] [place] [address] Mark Dodd M.D. Director [facility] # [id number] 6 The high-risk HPV types detected by the assay include: 16, 18, 31, 33, 35, 39, 45, 51, 52, 56, 58, 59, 66, and 68. 7 SEE RESULT BELOW Name: SEAN PIÑA : [address]: Rj Arrington MD Acct: [id number] Unit: [id number] AGE: 45 Location: [facility] Re12/19/15 SEX: F Status: REG REF SPEC: [id number] TARA: 12/19/15-[address] [facility] [address]: Rj Arrington MD REQ: [id number] RECD: 12/20/15-124 STATUS: COMP _ SOURCE: VAGINAL SPDESC: ORDERED: Genital Culture COMMENTS: [id number] Procedure Result Reported Site Genital Culture Final 12/22/15- 1009 ML Organism 1 NORMAL TAMIKO Quantity 3+ Routine genital cultures do not include selective agar for Neisseria gonorrhoeae. Molecular testing offers better test sensitivity and therefore is the preferred test methodology for identifying this organism. * ML - MAIN LAB ([facility]) . END OF REPORT * ML=Testing performed at Main Lab DEPARTMENT OF PATHOLOGY, [address] [place] [address] Mark Dodd M.D. Director [facility] # [id number] 8 SEE RESULT BELOW Name: SEAN PIÑA Manny : [address]: Leigh Wagner NP Acct: [id number] Unit: [id number] AGE: 45 Location: [facility] Re12/10/15 SEX: F Status: REG REF SPEC: [id number] TARA: 12/10/15-[address]: Leigh Wagner NP REQ: [id number] RECD: 12/10/15-1636 STATUS: COMP _ SOURCE: URINE SPDESC: ORDERED: Urine Culture COMMENTS: [facility] [id number] Procedure Result Reported Site Urine Culture Final 12/11/15- 1605 ML No growth of clinically significant organisms * ML - MAIN LAB ([facility]) . END OF REPORT * ML=Testing performed at Main Lab DEPARTMENT OF PATHOLOGY, [address] [place] [address] Mark Dodd M.D. Director [facility] # [id number] 9 SEE RESULT BELOW Name: SEAN PIÑA : [address]: Leigh Wagner NP Acct: [id number] Unit: [id number] AGE: 45 Location: [facility] Re12/10/15 SEX: F Status: REG REF SPEC: [id number] TARA: 12/10/15-[address] [facility] [address]: Leigh Wagner NP REQ: [id number] RECD: 12/10/15 STATUS: COMP _ SOURCE: VAGINAL SPDESC: ORDERED: Genital Culture COMMENTS: [facility] [id number] Procedure Result Reported Site Genital Culture Final 12/12/15- 1019 ML Organism 1 NORMAL TAMIKO Quantity 2+ Routine genital cultures do not include selective agar for Neisseria gonorrhoeae. Molecular testing offers better test sensitivity and therefore is the preferred test methodology for identifying this organism. * ML - MAIN LAB ([facility]) . END OF REPORT * ML=Testing performed at Main Lab DEPARTMENT OF PATHOLOGY, [address] [place] [address] Mark Dodd M.D. Director [facility] # [id number] 10 SEE RESULT BELOW Name: SEAN PIÑA Manny : [address]: Rj Arrington MD Acct: [id number] Unit: [id number] AGE: 44 Location: [facility] Re12/14/14 SEX: F Status: REG REF SPEC: [id number] TARA: 12/14/14-[address]: Rj Arrington MD REQ: [id number] RECD: 12/15/14-1099 STATUS: COMP _ SOURCE: CERVIX SPDESC: ORDERED: Genital Culture Procedure Result Verified Site Genital Culture Final 12/17/14- 1200 ML Organism 1 NORMAL TAMIKO Quantity 3+ Routine genital cultures do not include selective agar for Neisseria gonorrhoeae. Molecular testing offers better test sensitivity and therefore is the preferred test methodology for identifying this organism. * ML - MAIN LAB ([facility]) . END OF REPORT * ML=Testing performed at Main Lab DEPARTMENT OF PATHOLOGY, [address] [place] [address] Mark Dodd M.D. Director [facility] # [id number] 11 SEE RESULT BELOW Name: SEAN PIÑA : [address]: Rj Arrington MD Acct: [id number] Unit: [id number] AGE: 44 Location: [facility] Re12/14/14 SEX: F Status: REG REF SPEC: [id number] TARA: 12/14/14-[address]: Rj Arrington MD REQ: [id number] RECD: 08/14/15-1049 STATUS: SOUT _ ORDERED: IMAGE ANALYSIS FINAL DIAGNOSIS Negative for Intraepithelial lesion or Malignancy A. Ectocervical/Endocervical Specimen Adequacy: Satisfactory of evaluation Transformation zone component identified Patient Information: HPV: Thin Layer Pap Test w/reflex to high risk HPV RNA testing when ASCUS Actual Specimen Date: 12/14/14 Last Menstrual Date: 12/05/14 Date of Last Specimen: 09/15/13 Signed (signature on file) Dontae Vega 12/15/14 1523 This Pap test was evaluated with the assistance of the NXTMp Test Imaging System. Due to cytologic findings at the unemployment specialist microscope, comprehensive manual rescreening by a Marketing Writer may be required. The Pap Smear is a screening test designed to aid in the detection of premalignant and malignant conditions of the uterine cervix. It is not a diagnostic procedure and should not be used as the sole means of detecting cervical cancer. Both false- positive and false- negative reports do occur. Depending on your risk status, a Pap smear should be obtained and evaluated every 1-3 years. END OF REPORT * ML=Testing performed at Main Lab DEPARTMENT OF PATHOLOGY, [facility] [address] [place], [place] [address] Mark Dodd M.D. Director [facility] # [id number] 12 RUN DATE: 05/13/14 [facility] LAB LIVE PAGE 1 RUN TIME: [address] [place] [address] Specimen Inquiry Name: SEAN PIÑA : [address]: Rj Arrington MD Acct: [id number] Unit: [id number] AGE: 43 Location: [facility] Re05/11/14 SEX: F Status: REG REF SPEC: [id number] TARA: 05/11/14-[address] [facility] [address]: Rj Arrington MD REQ: [id number] RECD: 05/11/14 STATUS: COMP _ SOURCE: URINE SPDESC: ORDERED: Urine Culture QUERIES: Provider Requisition # [id number] Procedure Result Verified Site Urine Culture Final 05/13/14- 0847 ML Organism 1 NORMAL TAMIKO Ramey Count 1-10,000 (Few) CFU/ML END OF REPORT * ML=Testing performed at Main Lab DEPARTMENT OF PATHOLOGY, [facility] [address] [place], [place] [address] Mark Dodd M.D. Director [facility] # [id number] 13 RUN DATE: 05/13/14 [facility] LAB LIVE PAGE 1 RUN TIME: 919 [facility] [address] [place], [place] [address] Specimen Inquiry Name: SEAN PIÑA : [address]: Rj Arrington MD Acct: [id number] Unit: [id number] AGE: 43 Location: [facility] Re05/11/14 SEX: F Status: REG REF SPEC: [id number] TARA: 05/11/14-[address] [facility] [address]: Rj Arrington MD REQ: [id number] RECD: 05/11/140708 STATUS: COMP _ SOURCE: VAGINAL SPDESC: ORDERED: Genital Culture QUERIES: Provider Requisition # [id number] Procedure Result Verified Site Genital Culture Final 05/13/14- 919 ML Organism 1 YEAST Quantity 1+ Organism 2 NORMAL TAMIKO Quantity 2+ END OF REPORT * ML=Testing performed at Main Lab DEPARTMENT OF PATHOLOGY, [facility] [address] [place], [place] [address] Mark Dodd M.D. Director [facility] # [id number] 14 RUN DATE: 09/21/13 [facility] LAB LIVE PAGE 1 RUN TIME: 1501 [facility] [address] [place], [place] [address] Specimen Inquiry Name: SEAN PIÑA : [address]: Rj Arrington MD Acct: [id number] Unit: [id number] AGE: 42 Location: [facility] Re09/15/13 SEX: F Status: REG REF SPEC: [id number] TARA: 09/15/13-[address]: Rj Arrington MD REQ: [id number] RECD: 09/16/13-102 STATUS: COMP _ SOURCE: CERVIX SPDESC: ORDERED: Genital Culture QUERIES: Medent Number [id number] Procedure Result Verified Site Genital Culture Final 09/18/13- 953 ML Organism 1 NORMAL TAMIKO Quantity 3+ END OF REPORT * ML=Testing performed at Main Lab DEPARTMENT OF PATHOLOGY, [facility] [address] [place], [place] [address] Mark Dodd M.D. Director [facility] # [id number] 15 RUN DATE: 09/16/13 [facility] LAB LIVE PAGE 1 RUN TIME: 3683 [facility] [address] [place], [place] [address] Specimen Inquiry Name: SEAN PIÑA : [address]: Rj Arrington MD Acct: [id number] Unit: [id number] AGE: 42 Location: [facility] Re09/15/13 SEX: F Status: REG REF SPEC: [id number] TARA: 09/15/13-[address] [facility] [address]: Rj Arrington MD REQ: [id number] RECD: 09/16/13 STATUS: SOUT _ ORDERED: IMAGE ANALYSIS FINAL DIAGNOSIS Negative for Intraepithelial lesion or Malignancy A. Ectocervical/Endocervical Specimen Adequacy: Satisfactory of evaluation Transformation zone component identified Patient Information: HPV: Thin Layer Pap Test w/reflex to high risk HPV DNA testing when ASCUS Actual Specimen Date: 09/15/13 Last Menstrual Date: 08/22/13 Date of Last Specimen: 06/17/12 Signed (signature on file) Heavenly Shultzmalina, CT (ASCP) 09/16/13 1446 This Pap test was evaluated with the assistance of the EcastPrep Test Imaging System. Due to cytologic findings at the unemployment specialist microscope, comprehensive manual rescreening by a Marketing Writer may be required. The Pap Smear is a screening test designed to aid in the detection of premalignant and malignant conditions of the uterine cervix. It is not a diagnostic procedure and should not be used as the sole means of detecting cervical cancer. Both false- positive and false- negative reports do occur. Depending on your risk status, a Pap smear shoudl be obtained and evaluated every 1-3 years. END OF REPORT * ML=Testing performed at Main Lab DEPARTMENT OF PATHOLOGY, [facility] [address] [place] [address] Mark Dodd M.D. Director [facility] # [id number] 16 RUN DATE: 03/28/13 [facility] LAB LIVE PAGE 1 RUN TIME: 743 [facility] [address] [place], [place] [address] Specimen Inquiry Name: SEAN PIÑA : [address]: Kya Richardson MD Acct: [id number] Unit: [id number] AGE: 42 Location: [facility] Re03/01/13 SEX: F Status: REG REF SPEC: [id number] TARA: 03/01/[address] [facility] [address]: Kya Richardson MD REQ: [id number] RECD: 03/01/13 STATUS: COMP _ SOURCE: GENITAL SPDESC: ORDERED: Fungal - Other COMMENTS: VAGINAL YEAST QUERIES: Medent Number [id number] Procedure Result Verified Site Fungal Cult - Other Sources Final 03/28/13- 1532 ML No Growth Week 3 END OF REPORT * ML=Testing performed at Main Lab DEPARTMENT OF PATHOLOGY, [facility] [address] [place] [address] Mark Dodd M.D. Director [facility] Permit #[id number] 17 RUN DATE: 03/03/13 [facility] LAB LIVE PAGE 1 RUN TIME: [address] [place] [address] Specimen Inquiry Name: SEAN PIÑA : [address]: Kya Richardson MD Acct: [id number] Unit: [id number] AGE: 42 Location: [facility] Re03/01/13 SEX: F Status: REG REF SPEC: [id number] TARA: 03/01/[address] [facility] [address]: Kya Richardson MD REQ: [id number] RECD: 03/01/13 STATUS: COMP _ SOURCE: VAGINAL SPDESC: ORDERED: Genital Culture QUERIES: Medent Number [id number] Procedure Result Verified Site Genital Culture Final 03/03/13- 1302 ML Organism 1 NORMAL TAMIKO Quantity 3+ END OF REPORT * ML=Testing performed at Main Lab DEPARTMENT OF PATHOLOGY, [facility] [address] [place], [place] [address] Mark Dodd M.D. Director [facility] Permit #[id number] 18 RUN DATE: 10/23/12 [facility] LAB LIVE PAGE 1 RUN TIME: 1480 [facility] [address] [place], [place] [address] Specimen Inquiry Name: SEAN PIÑA : [address]: Rj Arrington MD Acct: [id number] Unit: [id number] AGE: 42 Location: [facility] Re10/21/12 SEX: F Status: REG REF SPEC: [id number] TARA: 10/21/121432 [facility] DR: Rj Arrington MD REQ: [id number] RECD: 10/21/12 STATUS: COMP _ SOURCE: ENDOCERVIX SPDESC: ORDERED: GC/Chlam RNA QUERIES: Medent Number [id number] Procedure Result Verified Site Chlamydia Trachomatis RNA Final 10/23/12- 1546 ML NEGATIVE for Chlamydia trachomatis rRNA GC (N. gonorrhoeae) RNA Final 10/23/12- 1546 ML NEGATIVE for Neisseria gonorrhoeae rRNA A negative result does not preclude the presence of a C. trachomatis or N. gonorrhoeae infection because results are dependent on adequate specimen collection, absence of inhibitors, and sufficient rRNA to be detected. Test results may be affected by improper specimen collection, improper storage, technical error, or specimen mixup. Limitations of the Procedure: The Aptima Combo 2 Assay is not intended for the evaluation of suspected sexual abuse or for other medico-legal indications. For those patients for whom a false positive result may have adverse psychosocial impact, the [facility] recommends retesting by a method using an alternate technology. Therapeutic failure or success cannot be determined with the Aptima Combo 2 Assay since nucleic acid may persist following appropriate antimicrobial therapy. Results from the Aptima Combo 2 Assay should be interpreted in conjunction with other laboratory and clinical data available to the clinican. CONTINUED ON NEXT PAGE * ML=Testing performed at Main Lab DEPARTMENT OF PATHOLOGY, [facility] [address] [place] [address] Mark Dodd M.D. Director [facility] Permit #[id number] RUN DATE: 10/23/12 [facility] LAB LIVE PAGE 2 RUN TIME: 1267 [facility] [address] [place], [place] [address] Specimen Inquiry Patient: SEAN PIÑA Manny [id number] (Continued) Specimen: [id number] Collected: 10/21/12 Received: 10/21/12-1552 (Continued) Procedure Result Verified Site GC (N. gonorrhoeae) RNA Final (continued) 10/23/12- 1546 Performance characteristics for detecting C. trachomatis and N. gonorrhoeae are derived from high prevalence populations. Positive results in low prevalence populations should be interpreted carefully with the understanding that the likelihood of a false positive may be higher than a true positive. END OF REPORT * ML=Testing performed at Main Lab DEPARTMENT OF PATHOLOGY, [facility] [address] [place], [place] [address] Mark Dodd M.D. Director [facility] Permit #[id number] 19 RUN DATE: 10/23/12 [facility] LAB LIVE PAGE 1 RUN TIME: 1202 [facility] [address] [place], [place] [address] Specimen Inquiry Name: SEAN PIÑA : [address]: Rj Arrington MD Acct: [id number] Unit: [id number] AGE: 42 Location: [facility] Re10/21/12 SEX: F Status: REG REF SPEC: [id number] TARA: 10/21/12-[address]: Rj Arrington MD REQ: [id number] RECD: 10/21/12 STATUS: COMP _ SOURCE: CERVIX SPDESC: ORDERED: Genital Culture QUERIES: Medent Number [id number] Procedure Result Verified Site Genital Culture Final 10/23/12- 1202 ML Organism 1 NORMAL TAMIKO Quantity 3+ END OF REPORT * ML=Testing performed at Main Lab DEPARTMENT OF PATHOLOGY, [facility] [address] [place], [place] [address] Mark Dodd M.D. Director [facility] Permit #[id number] 20 RUN DATE: 10/03/12 [facility] LAB LIVE PAGE 1 RUN TIME: 113 [facility] [address] [place], [place] [address] Specimen Inquiry Name: SEAN PIÑA : [address]: Whitley Tolentino PARKING ASSISTANT Acct: [id number] Unit: [id number] AGE: 41 Location: [facility] Re09/30/12 SEX: F Status: REG REF SPEC: [id number] TARA: 09/30/12-[address] [facility] [address]: Whitley Tolentino PARKING ASSISTANT REQ: [id number] RECD: 10/01/12 STATUS: COMP _ SOURCE: CERVIX SPDESC: ORDERED: Genital Culture QUERIES: Medent Number [id number] Procedure Result Verified Site Genital Culture Final 10/03/12- 1136 ML Organism 1 NORMAL TAMIKO Quantity 3+ END OF REPORT * ML=Testing performed at Main Lab DEPARTMENT OF PATHOLOGY, [address] [place] [address] Mark Dodd M.D. Director [facility] Permit #[id number] 21 RUN DATE: 09/12/12 [facility] LAB LIVE PAGE 1 RUN TIME: [address] [place] [address] Specimen Inquiry Name: SEAN PIÑA Manny : [address]: Whitley Tolentino CNP Acct: [id number] Unit: [id number] AGE: 41 Location: [facility] Re09/10/12 SEX: F Status: REG REF SPEC: [id number] TARA: 09/09/[address]: Whitley Tolentino CNP REQ: [id number] RECD: 09/10/12 STATUS: COMP _ SOURCE: CERVIX SPDESC: ORDERED: Genital Culture QUERIES: Medent Number [id number] Procedure Result Verified Site Genital Culture Final 09/12/12- 0909 ML Organism 1 ENTEROBACTER AEROGENES Quantity 3+ Organism 2 NORMAL TAMIKO Quantity 2+ 1. ENTEROBACTER AEROGENES M.I.C. RX --------- ------ Cefazolin >=64 R Cefepime <=1 S Ceftriaxone <=1 S Ciprofloxacin <=0.25 S Gentamicin <=1 S Imipenem 1 S Levofloxacin <=0.12 S Meropenem <=0.25 S Nitrofurantoin 128 R Tetracycline <=1 S Pipercillin/Tazobactam <=4 S Trimethoprim/Sulfamethoxazole <=20 S Amoxicillin/Clavulanic Acid R Aztreonam <=1 S Contact the Microbiology Department for any additional antibiotic reporting. END OF REPORT * ML=Testing performed at Main Lab DEPARTMENT OF PATHOLOGY, [facility] [address] [place] [address] Mark Dodd M.D. Director [facility] Permit #[id number] 22 RUN DATE: 06/22/12 [facility] LAB LIVE PAGE 1 RUN TIME: 1502 [facility] [address] [place], [place] [address] Specimen Inquiry Name: SEAN PIÑA : [address]: Rj Arrington MD Acct: [id number] Unit: [id number] AGE: 41 Location: [facility] Re06/17/12 SEX: F Status: REG REF SPEC: [id number] TARA: 06/17/[address]: Rj Arrington MD REQ: [id number] RECD: 06/21/12 STATUS: SOUT _ ORDERED: LEVEL IV FINAL DIAGNOSIS Uterus, cervix, biopsy: Benign endocervical polyp. PRE-OPERATIVE DIAGNOSIS Cervical polyp GROSS DESCRIPTION The specimen is received in formalin labelled Sean Piña, Cervical Polyp, and consists of multiple beltran, soft tissue and mucoid fragments measuring 1.4 x 1.0 x 0.4 cm. Submitted entirely, one cassette. Signed (signature on file) Mark Dodd MD 1502 END OF REPORT * ML=Testing performed at Main Lab DEPARTMENT OF PATHOLOGY, [facility] [address] [place] [address] Mark Dodd M.D. Director [facility] Permit #[id number] RUN DATE: 06/18/12 [facility] LAB LIVE PAGE 1 RUN TIME: [address] [place] [address] Specimen Inquiry Name: SEAN PIÑA Manny : [address]: Rj Arrington MD Acct: [id number] Unit: [id number] AGE: 41 Location: [facility] Re06/17/12 SEX: F Status: REG REF SPEC: [id number] TARA: 06/17/12-[address] [facility] [address]: Rj Arrington MD REQ: [id number] RECD: 06/18/12-1229 STATUS: SOUT _ ORDERED: IMAGE ANALYSIS, PAP SM PATH REV FINAL DIAGNOSIS Negative for Intraepithelial lesion or Malignancy Reactive cellular changes associated with Inflammation (includes typical repair) A. Ectocervical/Endocervical Specimen Adequacy: Satisfactory of evaluation Transformation zone component identified Patient Information: HPV: Thin Layer Pap Test w/reflex to high risk HPV DNA testing when ASCUS Actual Specimen Date: 06/17/12 LMP If Unknown: 06/2012 Signed (signature on file) Mark Dodd MD 6224 This Pap test was evaluated with the assistance of the Barspace Test Imaging System. Due to cytologic findings at the unemployment specialist microscope, comprehensive manual rescreening by a Marketing Writer may be required. The Pap Smear is a screening test designed to aid in the detection of premalignant and malignant conditions of the uterine cervix. It is not a diagnostic procedure and should not be used as the sole means of detecting cervical cancer. Both false- positive and false- negative reports do occur. Depending on your risk status, a Pap smear shoudl be obtained and evaluated every 1-3 years. END OF REPORT * ML=Testing performed at Main Lab DEPARTMENT OF PATHOLOGY, [address] [place] [address] Mark Dodd M.D. Director [facility] Permit #[id number] 24 For types 16, 18, 31, 33, 35, 39, 45, 51, 52, 56, 58, 59 and 68. Test Performed by: [facility] - [address] [address] Powder Mixer: Eduin Man III, M.D. 25 RUN DATE: 06/22/12 [facility] LAB LIVE PAGE 1 RUN TIME: [address] [place] [address] Specimen Inquiry Name: SEAN PIÑA : [address]: Rj Arrington MD Acct: [id number] Unit: [id number] AGE: 41 Location: [facility] Re06/17/12 SEX: F Status: REG REF SPEC: [id number] TARA: 06/17/12-[address]: Rj Arrington MD REQ: [id number] RECD: 06/18/12-6046 STATUS: SOUT _ ORDERED: IMAGE ANALYSIS, PAP SM PATH REV THIS VIAL WAS SENT IN ERROR FOR HPV TESTING, REFLEX TESTING WAS ORDERED BY CLINICIAN. THERE WILL BE NO CHARGE TO PATIENT FOR HPV TESTING. HiRisk Human Papilloma Virus test results received with preparation and diagnosis completed by [facility], [place], [place]. Results: NEGATIVE High Risk (for types 16, 18, 31, 33, 35, 39, 45, 51, 52, 56, 58, 59, 68) DiGene Hybrid Capture Specimen Transport Media or Cytyc ThinPrep PapTest PreservCyt Solution are the collection systems approved for use with this method by the U.S. Food and Drug Administration. Performance characteristics for AutoCyte (SurPath) collection device have been determined by Laboratory Medicine and Pathology , [facility], [place], [place]. It has not been cleared or approved by the U.S. Food and Drug Administration. Test Performed by: [facility] Dpt of lab Med and Pathology [address] [place] [address] Powder Mixer: Eduin Man III, M.D. Original hard copy report from [facility] is available upon request by calling Pathology at [phone]. Addendum Signed (signature on file) YEE Nolasco ([facility]) 06/22/12 0933 CONTINUED ON NEXT PAGE * ML=Testing performed at Main Lab DEPARTMENT OF PATHOLOGY, [facility] [address] [place] [id number] Mark Dodd M.D. Director [facility] Permit #[id number] RUN DATE: 06/22/12 [facility] LAB LIVE PAGE 2 RUN TIME: 932 [facility] [employer] [place], [place] [address] Specimen Inquiry Patient: SHANIKA PIÑAELE Manny [id number] (Continued) FINAL DIAGNOSIS (Continued) FINAL DIAGNOSIS Negative for Intraepithelial lesion or Malignancy Reactive cellular changes associated with Inflammation (includes typical repair) A. Ectocervical/Endocervical Specimen Adequacy: Satisfactory of evaluation Transformation zone component identified Patient Information: HPV: Thin Layer Pap Test w/reflex to high risk HPV DNA testing when ASCUS Actual Specimen Date: 06/17/12 LMP If Unknown: 06/2012 Signed (signature on file) Mark Dodd MD 1283 This Pap test was evaluated with the assistance of the Barspace Test Imaging System. Due to cytologic findings at the unemployment specialist microscope, comprehensive manual rescreening by a Marketing Writer may be required. The Pap Smear is a screening test designed to aid in the detection of premalignant and malignant conditions of the uterine cervix. It is not a diagnostic procedure and should not be used as the sole means of detecting cervical cancer. Both false- positive and false- negative reports do occur. Depending on your risk status, a Pap smear shoudl be obtained and evaluated every 1-3 years. END OF REPORT * ML=Testing performed at Main Lab DEPARTMENT OF PATHOLOGY, [address] [place] [address] Mark Dodd M.D. Director [facility] Permit #[id number] RUN DATE: 08/24/11 [facility] NMI LIVE PAGE 1 RUN TIME: 1054 Specimen Inquiry RUN USER: INTERFACE Name: SEAN PIÑA Status: REG REF Re08/21/11 Age/Sex: 40/F Unit#: [id number] Location: [facility] : 70 SPEC #: [id number] TARA: 08/21/11-1548 STATUS: COMP REQ #: [id number] RECD: 08/22/11-[address]: Leigh Wagner NP SOURCE: URINE ENTR: 08/22/11-[address]: JANKI: ORDERED: URINE C S COMMENTS: SPECIMEN DESCRIPTION: URINE, CLEAN CATCH QUERIES: MEDENT MEDENT REQUISITION # [id number] SPECIMEN DESCRIPTION: URINE, CLEAN CATCH ACT WKST: UR 08/24/11 #1 Procedure Result Verified Site > URINE CULTURE SENSITIVI Final 08/24/11- 1054 ML SCANT NORMAL URETHRAL OR PERINEAL TAMIKO - [facility] Permit #[id number] [address] [place] [address] DEPARTMENT OF PATHOLOGY, [address] [place] [address] [facility] Permit #[id number] Siomara Smalls M.D. Youth Ministry Director 27 RUN DATE: 08/24/11 [facility] NMI LIVE PAGE 1 RUN TIME: 1022 Specimen Inquiry RUN USER: INTERFACE Name: SEAN PIÑA Status: REG REF Re08/21/11 Age/Sex: 40/F Unit#: [id number] Location: [facility] : 70 SPEC #: [id number] TARA: 08/21/11-1535 STATUS: CHRISTOPHER REQ #: [id number] RECD: 08/22/11-[address]: Leigh Wagner NP SOURCE: GENITAL ENTR: 08/22/11-[address]: SUSANNE: SeeComment ORDERED: GENITAL CULTURE COMMENTS: Specimen Description: vaginal swab QUERIES: [facility] REQUISITION # [id number] ACT WKST: B 08/24/11 #1 Procedure Result Verified Site > GENITAL CULTURE Final 08/24/11- 1022 ML Organism 1 YEAST QUANTITY MANY Organism 2 NORMAL TAMIKO QUANTITY MANY ML - [facility] Permit #[id number] [address] [place] [address] DEPARTMENT OF PATHOLOGY, [address] [place] [address] [facility] Permit #[id number] Mark Dodd M.D. Director Stephanie Ruby M.D. Youth Ministry Director 28 UREAPLASMA CULT (MYCOPLASMA T) RESULT/COMMENT: No Ureaplasma urealyticum isolated at 5 days. MYCOPLASMA HOMINIS CULT. RESULT/COMMENT: Negative for Mycoplasma hominis 29 ---- RUN DATE: 05/09/11 [facility] NMI LIVE PAGE 1 RUN TIME: 1552 Specimen Inquiry RUN USER: INTERFACE -- Name: SEAN PIÑA Manny Status: REG REF Re05/08/11 Age/Sex: 40/F Unit#: [id number] Location: [facility] : 70 -- Specimen: [id number] JORDAN Spec Date: 05/08/[address]: Rj hoffmann MD Spec Type: CYTOLOGY Received: 05/09/11-1238 Copies to: SOURCE ECTOCERVICAL/ENDOCERVICAL Thin Prep with Reflex HPV Test PATIENT INFORMATION ACTUAL COLLECTION DATE: 05/08/11 LAST MENSTRUAL PERIOD: 04/15/11 DATE OF PRIOR SPECIMEN: 04/25/10 ADEQUACY OF SPECIMEN Satisfactory for evaluation * Transformation zone component identified * DIAGNOSIS NEGATIVE FOR INTRAEPITHELIAL LESION OR MALIGNANCY * This Pap test was evaluated with the assistance of the EcastPrep Pap Test Imaging System. The Pap Smear is a screening test designed to aid in the detection of premalign ant and malignant conditions of the uterine cervix. It is not a diagnostic procedure a nd should not be used as the sole means of detecting cervical cancer. Both false- positiv e and false-negative reports do occur. Depending on your risk status, a Pap smear toni uld be obtained and evaluated every one to three years. Initial evaluation performed by Nuha SMITH([facility]) 05/09/11 Final Interpretation electronically signed by: Nuha SIMTH([facility]) 05/09/11 1551 -- -- DEPARTMENT OF PATHOLOGY, [address] [place] [address] [facility] Permit #[id number] Mark Dodd M.D. Director Stephanie Ruby M.D. Digital Product Specialist Dir syl -- 30 NORMAL RANGE MALES 1 - 20 NORMALLY MENSTRUATING FEMALES - Follicular Phase 3 - 9 - Mid-Cycle Peak 4 - 23 - Luteal Phase 1 - 6 POSTMENOPAUSAL FEMALES 16 - 114 . 31 NORMAL RANGE MALES 2 - 12 NORMALLY MENSTRUATING FEMALES - Follicular Phase 1 - 18 - Mid-Cycle Peak 24 - 105 - Luteal Phase 0.6 - 20 POSTMENOPAUSAL FEMALES 15 - 62 . 32 REFERENCE RANGE: AM 8.7-22.4 PM LESS THAN 10 . 33 EXPECTED RESULTS (pg/ml) MALES 20-75 POSTMENOPAUSAL FEMALES 20-88 NON FEMALES Mid-Follicular Phase 24-114 Periovulatory 62-534 Mid Luteal Phase 80-273 34 FEMALE REFERENCE RANGES FOR Progesterone: Follicular phase.......0.3 - 1.5 ng/ml Mid-luteal phase.......5.2 - 18.5 ng/ml Postmenopausal.........< 0.8 ng/ml 1st trimester.........4.7 - 50.0 ng/ml 2nd trimester.........19.4 - 45.3 ng/ml . 35 SPECIMEN DESCRIPTION: URINE, CLEAN CATCH 36 GROUP D ENTEROCOCCUS 75^50-75,000 ORGANISMS/ML (MANY)^CCU 37 M^MANY^QTY 38 MOD^MODERATE^QTY 39 UREAPLASMA CULT (MYCOPLASMA T) RESULT/COMMENT: No Ureaplasma urealyticum isolated at 5 days. MYCOPLASMA HOMINIS CULT. RESULT/COMMENT: Negative for Mycoplasma hominis 40 UREAPLASMA CULT (MYCOPLASMA T) RESULT/COMMENT: No Ureaplasma urealyticum isolated at 5 days. MYCOPLASMA HOMINIS CULT. RESULT/COMMENT: Negative for Mycoplasma hominis 41 NORMAL GENITAL TAMIKO 42 Test not performed. An electronic test request was transmitted to [employer] and no specimen was received by the laboratory. Test has been cancelled. 43 Specimen Description: anal GRAM STAIN NOT RECOMMENDED FOR THIS SPECIMEN SOURCE. 44 Test not performed 45 NORMAL EXPECTED TAMIKO; NO PATHOGENS ISOLATED 46 UREAPLASMA CULT (MYCOPLASMA T) RESULT/COMMENT: * Ureaplasma urealyticum detected MYCOPLASMA HOMINIS CULT. RESULT/COMMENT: Negative for Mycoplasma hominis 47 NEGATIVE FOR CHLAMYDIA TRACHOMATIS rRNA A negative result does not preclude the presence of a C.trachomatis or N.gonorrhoeae infection because results are dependent on adequate specimen collection, absence of inhibitors, and sufficient rRNA to be detected. Test results may be affected by improper specimen collection, improper specimen storage, technical error, or specimen mixup. 48 NEGATIVE FOR NEISSERIA GONORRHOEAE rRNA A negative result does not preclude the presence of a C.trachomatis or N.gonorrhoeae infection because results are dependent on adequate specimen collection, absence of inhibitors, and sufficient rRNA to be detected. Test results may be affected by improper specimen collection, improper specimen storage, technical error, or specimen mixup. 49 Specimen Description: vaginal 50 NORMAL GENITAL TAMIKO 51 ---- [facility] DATE: [facility]26[facility]10 [facility] RUN TIME: 1506 Specimen Inquiry RUN USER: INTERFACE -- Name: SEAN PIÑA Manny Status: REG REF Re04/25/10 Age/Sex: 39/F Unit#: [id number] Location: [facility] : 70 -- Specimen: [id number] SOUT Spec Date: 04/25/[address]: Rj hoffmann MD Spec Type: CYTOLOGY Received: 04/26/10-61 Copies to: SOURCE ECTOCERVICAL/ENDOCERVICAL Thin Prep with Reflex HPV Test PATIENT INFORMATION ACTUAL COLLECTION DATE: 04/25/10 LAST MENSTRUAL PERIOD: 03/18/10 DATE OF PRIOR SPECIMEN: 04/26/09 ADEQUACY OF SPECIMEN Satisfactory for evaluation * Transformation zone component identified * DIAGNOSIS NEGATIVE FOR INTRAEPITHELIAL LESION OR MALIGNANCY * This Pap test was evaluated with the assistance of the ThinPrep Pap Test Imaging System. The Pap Smear is a screening test designed to aid in the detection of premalign ant and malignant conditions of the uterine cervix. It is not a diagnostic procedure a nd should not be used as the sole means of detecting cervical cancer. Both false- positiv e and false-negative reports do occur. Depending on your risk status, a Pap smear toni uld be obtained and evaluated every one to three years. Initial evaluation performed by Nuha SMITH([facility]) 04/26/10 Final Interpretation electronically signed by: Nuha SMITH([facility]) 04/26/10 1505 -- -- DEPARTMENT OF PATHOLOGY, [address] [place] [address] [facility] Permit #[id number] Siomara Smalls M.D. Assistant Dir ector -- 52 ---- RUN DATE: 04/30/09 [facility] NMI LIVE PAGE 1 RUN TIME: 1515 Specimen Inquiry RUN USER: INTERFACE -- Name: SEAN PIÑA Status: REG REF Re04/26/09 Age/Sex: 38/F Unit#: [id number] Location: [facility] : 70 -- Specimen: [id number] JORDAN Spec Date: 04/26/[address]: Rj hoffmann MD Spec Type: CYTOLOGY Received: 04/30/09-1222 Copies to: SOURCE ECTOCERVICAL/ENDOCERVICAL Thin Prep with Reflex HPV Test PATIENT INFORMATION ACTUAL COLLECTION DATE: 04/26/09 LAST MENSTRUAL PERIOD: 03/29/09 DATE OF PRIOR SPECIMEN: 02/28/08 ADEQUACY OF SPECIMEN Satisfactory for evaluation * Transformation zone component identified * DIAGNOSIS NEGATIVE FOR INTRAEPITHELIAL LESION OR MALIGNANCY * This Pap test was evaluated with the assistance of the EcastPrep Pap Test Imaging System. The Pap Smear is a screening test designed to aid in the detection of premalign ant and malignant conditions of the uterine cervix. It is not a diagnostic procedure a nd should not be used as the sole means of detecting cervical cancer. Both false- positiv e and false-negative reports do occur. Depending on your risk status, a Pap smear toni uld be obtained and evaluated every one to three years. Initial evaluation performed by Nuha SMITH([facility]) 04/30/09 Final Interpretation electronically signed by: Nuha SMITH([facility]) 04/30/09 1514 -- -- DEPARTMENT OF PATHOLOGY, [address] [place] [address] [facility] Permit #[id number] Mark Dodd M.D. Director Stephanie Ruby M.D. Digital Product Specialist Dir syl -- 53 NORMAL RANGE MALES 1 - 20 NORMALLY MENSTRUATING FEMALES - Follicular Phase 3 - 9 - Mid-Cycle Peak 4 - 23 - Luteal Phase 1 - 6 POSTMENOPAUSAL FEMALES 16 - 114 . 54 NORMAL RANGE MALES 2 - 12 NORMALLY MENSTRUATING FEMALES - Follicular Phase 1 - 18 - Mid-Cycle Peak 24 - 105 - Luteal Phase 0.6 - 20 POSTMENOPAUSAL FEMALES 15 - 62 . 55 Test Performed by: [facility] Dpt of Lab Med and Pathology [address] [place] [address] Powder Mixer: Eduin Man III, M.D. 56 CHOLESTEROL INTERPRETATION: Desirable: Less than 200 MG/DL Borderline-High Risk: 200-239 MG/DL High-Risk: 240 MG/DL and over 57 HDL INTERPRETATION: Undesirable: High Risk: Less than 40 MG/DL Desirable: Low Risk: Greater than 60 MG/DL 58 LDL INTERPRETATION: Low Risk Optimal Level: LDL Less than 100 MG/DL Near or Above Optimal: LDL 100-129 MG/DL Borderline High Risk: LDL 130-159 MG/DL High Risk: LDL 160-189 MG/DL Very High Risk: LDL Greater than 189 MG/DL 59 PLEASE NOTE NEW REFERENCE RANGES. 60 ---- RUN DATE: 02/29/08 [facility] NMI LIVE PAGE 1 RUN TIME: 1531 Specimen Inquiry RUN USER: INTERFACE -- Name: SEAN PIÑA Status: REG REF Re02/28/08 Age/Sex: 37/F Unit#: [id number] Location: [facility] : 70 -- Specimen: [id number] JORDAN Spec Date: 02/28/[address]: Rj hoffmann MD Spec Type: CYTOLOGY Received: 02/29/08-1136 Copies to: SOURCE ECTOCERVICAL/ENDOCERVICAL Thin Prep with Reflex HPV Test PATIENT INFORMATION ACTUAL COLLECTION DATE: 02/28/08 PREVIOUS ABNORMAL PAP SMEARS Yes If YES, diagnosis: hx of ascus LAST MENSTRUAL PERIOD: 02/02/08 PATIENT HISTORY: Prior 01/2007 ADEQUACY OF SPECIMEN Satisfactory for evaluation * Transformation zone component identified * DIAGNOSIS NEGATIVE FOR INTRAEPITHELIAL LESION OR MALIGNANCY * This Pap test was evaluated with the assistance of the EcastPrep Pap Test Imaging System. The Pap Smear is a screening test designed to aid in the detection of premalign ant and malignant conditions of the uterine cervix. It is not a diagnostic procedure a nd should not be used as the sole means of detecting cervical cancer. Both false- positive and false-negative reports do occur. Depending on your risk status, a Pap smear toni uld be obtained and evaluated every one to three years. Final Interpretation electronically signed by: Nuha SMITH([facility]) 02/29/08 1531 -- -- DEPARTMENT OF PATHOLOGY, [address] [place] [address] [facility] Permit #[id number] Mark Dodd M.D. Director of Laboratories -- 61 ---- RUN DATE: 01/29/07 [facility] NMI LIVE PAGE 1 RUN TIME: 1453 Specimen Inquiry RUN USER: INTERFACE [id number] SEAN PIÑA 36/F <REG REF 01/18> ([id number]) Whitley Mcculluogh CNP -- Specimen: [id number] SOUT Spec Date: 01/18/[address]: Whitley London mp, CNP Spec Type: CYTOLOGY Received: 01/19/07-1238 Copies to: SOURCE ECTOCERVICAL/ENDOCERVICAL Thin Prep with Reflex HPV Test PATIENT INFORMATION ACTUAL COLLECTION DATE: 01/18/07 PREVIOUS ABNORMAL PAP SMEARS No LAST MENSTRUAL PERIOD: 01/02/07 PATIENT HISTORY: Prior 08/2005 NUMBER UNKNOWN ADEQUACY OF SPECIMEN Satisfactory for evaluation * Transformation zone component identified * DIAGNOSIS EPITHELIAL CELL ABNORMALITIES * Squamous cell * Atypical squamous cells * Of undetermined significance (ASC-US) * NOTE [facility] high risk HPV DNA testing on 01/21/07 at 1600 by [employer]. ADDENDUM Addendum #1 Entered: 01/29/07-145 HiRisk Human Papilloma Virus test results received with preparation and diagnosis completed by [facility], [place], [place]. Results: NEGATIVE High Risk (HPV types 16, 18, 31, 33, 35, 39, 45, 51, 52, 56, 58, 59, 68) (Original consultation report to follow). -- DEPARTMENT OF PATHOLOGY, [address] [place] [address] [facility] Permit #[id number] Mark Dodd M.D. Director of Laboratories Sumi Lester II, M.D . Pathologist -- -- RUN DATE: 01/29/07 [facility] NMI LIVE PAGE 2 RUN TIME: 1453 Specimen Inquiry RUN USER: INTERFACE -- SPEC #: [id number] PATIENT: SEAN PIÑA #[id number] (Continued) -- ADDENDUM (Continued) Addendum Review Nuha SMITH([facility]) 01/29/07 -- This Pap test was evaluated with the assistance of the EcastPrep Pap Test Imaging System. Due to cytologic findings at the unemployment specialist microscope, comprehensive manual rescreening by a Marketing Writer was required. The Pap Smear is a screening test designed to aid in the detection of premalign ant and malignant conditions of the uterine cervix. It is not a diagnostic procedure a nd should not be used as the sole means of detecting cervical cancer. Both false- positive and false-negative reports do occur. Depending on your risk status, a Pap smear toni uld be obtained and evaluated every one to three years. Initial evaluation performed by Nuha SMITH([facility]) 01/20/07 Final Interpretation electronically signed by: SUMI LESTER MD 01/21/07 1113 -- -- DEPARTMENT OF PATHOLOGY, [address] [place] [address] [facility] Permit #[id number] Mark Dodd M.D. Director of Laboratories Sumi Lester II, M.D . Pathologist -- 62 Run: 08/12/05 1600 LIS Specimen Inquiry Run User: INTERFACE -- Name: SEAN PIÑA Age/Sex: 34/F Location: [facility]#: [id number] Unit#: [id number] Status: [facility] Room/Bed: Re08/07/05 Disch: Att Dr: Rj Arrington MD. -- Spec #: [id number] Recd: 08/08/05 Status: [facility] Re #: [id number] SpType: CYTOLOGY Sub Dr: Rj Arrington MD. ADEQUACY OF SPECIMEN Satisfactory for evaluation * Transformation zone component identified * DIAGNOSIS NEGATIVE FOR INTRAEPITHELIAL LESION OR MALIGNANCY * CYTOLOGY HISTORY CAUTERY? NO HORMONES? (name YES INTRAUTERINE DEVICE? NO LESION VISIBLE? NO RADIATION? (date NO INFECTIOUS SPECIMEN? NO SOURCE ECTOCERVICAL/ENDOCERVICAL Thin Prep with Reflex HPV Test The Pap Smear is a screening test designed to aid in the detection of premalign ant and malignant conditions of the uterine cervix. It is not a diagnostic procedure an d should not be used as the sole means of detecting cervical cancer. Both false-positive and false-negative reports do occur. Depending on your risk status, a Pap smear toni uld be obtained and evaluated every one to three years. PATIENT INFORMATION ACTUAL COLLECTION DATE: 08/06/05 ? NO POST MENOPAUSAL? No HYSTERECTOMY? No PREVIOUS ABNORMAL PAP SMEARS No LAST MENSTRUAL PERIOD: 07/14/05 DATE OF PRIOR SPECIMEN: 09/29/02 PREVIOUS CYTOLOGY/SURGICAL SPECIMEN #: [id number] -- Signed Nuha SMITH CT([facility]) 08/12/05 -- END OF REPORT Procedures Date Code Description Status 03/12/2018 49535 Echography Transvaginal Completed 05/25/2017 24115407 Mammogram Completed 12/18/2016 25389 Echography Transvaginal Completed 08/07/2016 40957 Echography Transvaginal Completed 02/14/2015 25479 Echography Transvaginal Completed 07/04/2013 01673519 Colonoscopy Completed 10/21/2012 89504 Echography Transvaginal Completed 07/21/2012 60285 Echography Transvaginal Completed 06/17/2012 47876 Biopsy Cervix Completed 10/28/2010 [facility] Medical Records, Release Completed 09/09/2007 36751 Echography Transvaginal Completed 09/09/2007 20965 Echography Transvaginal Completed 08/20/2007 43275 Echography Transvaginal Completed 08/20/2007 54399 Echography Transvaginal Completed 01/29/2006 84156 Echography Transvaginal Completed 11/27/2005 41774 Echography Transvaginal Completed Encounters Type Date Location Provider Dx Diagnosis Office Visit 01/19/2018 [facility] Annamarie Valenzuela, 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 Right Lower Quadrant 616.10 Vaginitis & Vulvovaginitis Unspec Office Visit 09/30/2012 2:40p [facility] Whitley Tolentino, 616.10 Vaginitis & ANP-C Vulvovaginitis Unspec Office Visit 09/09/2012 3:00p [facility] Whitley Tolentino, 616.10 Vaginitis & ANP-C Vulvovaginitis Unspec Office Visit 07/21/2012 2:00p [facility] Rj Arrington, 789.03 Pain Abdominal Right M.D. 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 Examination 621.0 Polyp Corpus Uteri 617.9 Endometriosis Site Unspec 620.2 Ovarian Cyst Other & Unspec V76.2 Screening Malignant Neoplasm Cervix Office Visit 03/11/2012 2:00p [facility] Rj Arrington, 112.1 Candidiasis The M.D. 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 Examination V76.2 Screening Malignant Neoplasm Cervix 346.90 Migraine Unspec W/O Intractable W/O Status Migrainosus Office Visit 12/16/2010 1:30p [facility] Yudith Bradley 624.8 Vulva & Perineum MD Jolly Disorder Noninflammatory Spec Other 616.10 Vaginitis & Vulvovaginitis Unspec Office Visit 11/26/2010 1:00p [facility] Yudith Bradley 624.8 Vulva & Perineum MD Jolly Disorder Noninflammatory Spec Other Office Visit 11/14/2010 1:40p [facility] Whitley Tolentino, 616.10 Vaginitis & ANP-C Vulvovaginitis Unspec Office Visit 09/26/2010 11:00a [facility] Whitley Tolentino, V74.5 Screening Examination ANP-C Venereal Disease Office Visit 09/19/2010 3:40p [facility] Wilder Wang 346.90 Migraine Unspec W/O Siomara Medina Intractable W/O Status Migrainosus Office Visit 09/02/2010 3:20p [facility] Whitley Tolentino, 616.10 Vaginitis & ANP-C Vulvovaginitis Unspec 628.9 Infertility Female Unspec Origin 698.0 Pruritus Ani Office Visit 06/25/2010 1:00p [facility] Whitley Tolentino, 616.10 Vaginitis & ANP-C Vulvovaginitis Unspec 698.0 Pruritus Ani 620.2 Ovarian Cyst Other & Unspec Office Visit 06/19/2010 2:00p [facility] Whitley Tolentino, 616.10 Vaginitis & ANP-C Vulvovaginitis Unspec Office Visit 05/31/2010 2:40p [facility] Cira Pitt 616.10 Vaginitis & Fifi, CNM Vulvovaginitis Unspec Office Visit 04/25/2010 1:30p [facility] Rj Arrington, V72.31 Routine Press Brake Operator Suite Q M.D. Examination V76.2 Screening Malignant Neoplasm Cervix 617.1 Endometriosis Ovary Office Visit 04/26/2009 10:40a [facility] Rj Arrington V72.31 Routine Press Brake Operator M.D. Examination V76.2 Screening Malignant Neoplasm Cervix 346.90 Migraine Unspec W/O Intractable W/O Status Migrainosus Office Visit 12/20/2008 1:20p [facility] Cesia King, 346.90 Migraine Unspec M.D. W/O Intractable W/O Status Migrainosus 626.1 Menstruation Scanty Or Infrequent V17.3 History Family Ischemic Heart Disease Office Visit 02/28/2008 3:40p [facility] Rj Arrington V72.31 Routine Press Brake Operator M.D. Examination 611.9 Breast Disorders Unspec 611.8 Breast Disorders Other Spec 617.1 Endometriosis Ovary 346.90 Migraine Unspec W/O Intractable W/O Status Migrainosus 401.9 Hypertension Unspec V76.2 Screening Malignant Neoplasm Cervix Office Visit 09/09/2007 11:20a [facility] Whitley Tolentino, 620.2 Ovarian Cyst Other & ANP-C Unspec Office Visit 08/20/2007 1:40p [facility] Whitley Tolentino, 789.03 Pain Abdominal Right ANP-C Lower Quadrant Office Visit 08/04/2007 11:20a [facility] Whitley Tolentino, 346.90 Migraine Unspec W/O ANP-C Intractable W/O Status Migrainosus V25.8 Contraceptive Management Spec Other Office Visit 05/06/2007 3:20p [facility] Rj Arrington, V25.8 Contraceptive M.D. 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 Intractable W/O Status Migrainosus 620.2 Ovarian Cyst Other & Unspec Office Visit 08/06/2005 3:00p [facility] Rj Arrington, 789.03 Pain Abdominal Right M.D. Lower Quadrant Office Visit 06/26/2005 9:00a [facility] Whitley Tolentino, 789.03 Pain Abdominal Right ANP-C Lower Quadrant Office Visit 06/26/2004 2:20p [facility] Rj Arrington, 620.2 Ovarian Cyst Other & M.D. Unspec Office Visit 01/26/2003 1:00p [facility] Rj Arrington, 626.6 Metrorrhagia M.D. 625.4 Premenstrual Tension Syndromes 796.2 Blood Pressure Reading Elevated W/O Hypertension Plan of Treatment 01/19/2018 - Annamarie Valenzuela MDZ01.411 Encounter for gynecological examination (general) (routine) with abnormal findingsComments:Maintain routine exercise and healthy diet. Incorporate weight bearing exercise (walking/running with weights) to help prevent osteoporosis. Try to incorporate calcium into your regular diet (Ideally 1200mg/day). Take Vitamin D supplementation(600-800 IU/day ) to assist absorption of the calcium. Call to schedule your yearly mammogram.Perform periodic breast exams to become familiar with your breast tissue so you are more likely to notice something abnormal and do not need to be concerned about the normal lumps. Return for annual exam in 1 year or earlier if concerns arise. Routine cervical cancer screening has changed. Pap smears are no longer done every year for low-risk women. A combination screening with both a pap smear (looking for abnormal cells) and HPV testing are recommended every 3-5 years. It takes many years for normal cells to become abnormal and many more years for the abnormal cells to become cancer. Women should still come for a yearly visit and exam. When there is an abnormal pap smear or +HPV testing more frequent screening is recommended.K59.00 Constipation, unspecifiedComments:pelvic PT referral - may help with pelvic pain, bladder issues as well.
== END 2018-03-20 21:30 | disposition home or self-care (01) ==
LOC: UCEAST 19:11
DX: H10.213 Acute toxic conjunctivitis, bilateral (principal); M79.7 Fibromyalgia; Z88.5 Allergy status to narcotic agent; Z88.8 Allergy status to other drugs, medicaments and biological substances
CPT/HCPCS: 83986; 99212; A9270-GY; G0463

== ENCOUNTER 2018-04-18 10:52 | Emergency (ER) | payer BC ==
--- OUTSIDE RECORDS SUMMARY | 2018-04-18 10:56 | XMS REPORT | Continuity of Care Document ---
:1970 External Reference #:[id number] Author Name Jenny Esparza O.D. Address [address] [place] [address] Care Team Providers Name Role Phone Laurel Quintana M.D. Primary Care Physician Unavailable Payers Type Date Identification Numbers Payment Provider Subscriber Policy Number: [id number] [facility] Luis Felipe Campa PayID: [id number] [address] [address] [place] [address] Advance Directives Description No Information Available Problems Date Description Provider Status Onset: Chronic fatigue syndrome Active Onset: 12/27/2014 Migraine Jenny Esparza O.D. Active Onset: Endometritis Active Onset: Irritable bowel syndrome Active Onset: 12/27/2014 Blepharoconjunctivitis Jenny Esparza O.D. Active Onset: 12/29/2014 Chemical injury to conjunctiva Jenny Esparza O.D. Active Onset: 03/25/2015 Epidemic hemorrhagic conjunctivitis Renita Bateman O.D. Active Onset: 04/03/2015 Vitreous degeneration Priscila Salcedo O.D. Active Onset: 04/03/2015 Refractory migraine variants Priscila Salcedo O.D. Active Onset: 04/03/2015 Blepharitis Priscila Salcedo O.D. Active Onset: 10/16/2016 Squamous blepharitis Alexandro Sauer M.D. Active Onset: 08/16/2017 Conjunctivitis Jenny Esparza O.D. Active Onset: 08/17/2017 Pain in eye Alexandro Sauer M.D. Active Onset: 03/22/2018 Angular blepharoconjunctivitis Jenny Esparza O.D. Active Onset: 03/22/2018 Punctate keratitis Jenny Esparza O.D. Active Family History Date Family Member(s) Problem(s) Comments General Thyroid Cancer General Breast Cancer General Heart Disease General Hypertension General Cholesteatoma General Melanoma General Thyroid Disease General Osteoporosis Father Aortic Aneurysm in Ascending Aorta - measures 4.9 cm Father Hypothyroidism Father Aortic Aneurysm Father Heart Attacks 3 xs Father Hypothyroidism Mother Eye Visual Problems Blepharitis - more severe than mine Mother Melanoma Several Melanomas Social History Type Date Description Comments Sex Unknown Marital Status Has been 1 time Work Status Unemployed ETOH Use Denies alcohol use Tobacco Use Start: Unknown Patient has never smoked Recreational Drug Use Denies Drug Use Smoking Status Reviewed: 03/22/18 Patient has never smoked Allergies, Adverse Reactions, Alerts Date Description Reaction Status Severity Comments 12/27/2014 Codeine rebound migraine Active 12/27/2014 Hydrocodone SOB Active 12/27/2014 Depakote Nausea and Vomiting Active 12/27/2014 Compazine tongue swelling Active 12/27/2014 Reglan severe panic attack Active 12/27/2014 Ativan severe panic attacks Active 12/27/2014 Percogesic PERCOCET SOB Active SOB 12/27/2014 Topiramate Insomia, Severe Shaking Active 12/30/2014 Dilaudid Nausea and Vomiting, Rebound Active Migraine 12/27/2014 Dilantin rebound migraine Inactive Medications Medication Date Status Form Strength Qnty SIG Indications Ordering Provider Avenova 03/22/ Active Solution 0.01% 1Bottl spray on H10.523 Jenny Hickey e naa, Vilma, zac, and Pierre.Laisha leave on eye for 1 minute 2x/day both eyes Bacitracin 08/16/ Active Ointment 500Unit/GM 3gm apply H10.89 Alexandro (Ophthalmic) 2017 1/4" to Cristiane, both M.D. eyes Olopatadine HCL 10/16/ Active Solution 0.1% 10ml use one H01.021 Alexandro 2017 drop to Cristiane, both M.D. eyes, once a day when itchy Avenova 04/03/ Active Solution 0.01% 1Bottl spray on H01.002 Alexandro 2015 e lids, Zablocki, rub, and M.D. leave on eye 2x/day both eyes Refresh Optive 04/02/ Active Solution 0.5-0.9% 1 drop Priscila 2014 both C. Oltz, eyes O.D. every hour Azelastine HCL / Active Solution 0.1% Unknown (Nasal) 0000 Gabapentin / Active Tablets 600mg Unknown 0000 Mupirocin / Active Ointment 2% Unknown 0000 Nasonex / Active Suspension 50mcg/Act Unknown 0000 Tizanidine HCL / Active Tablets 4mg Unknown 0000 Ondansetron / Active Tablets 4mg Unknown 0000 Dispers Nortriptyline / Active Capsules 10mg Unknown HCL 0000 Lisinopril / Active Tablets 10mg Unknown 0000 Montelukast / Active Tablets 10mg Unknown Sodium 0000 Jessica / Active Tablets 0.35mg Unknown 0000 Zolmitriptan / Active Tablets 5mg Unknown 0000 Gabapentin / Active Capsules 300mg Unknown 0000 Bactrim DS / Active Tablets 800-160mg 3 times Unknown 0000 a week Atenolol / Active Tablets 25mg Take 1/2 Unknown 0000 Tablet By Mouth Every Day Doxycycline 12/02/ Hx Capsules 50mg 30caps Take one . Alexandro Dubois 2016 - tablet Zablocki, 04/29/ by mouth M.D. 2016 every day Bacitracin 10/16/ Hx Ointment 500Unit/GM 7gm place in . Alexandro (Ophthalmic) 2016 - both Zablocki, 12/01/ eyes at M.D. 2017 night before bed for 4 weeks Doxycycline 10/16/ Hx Capsules DR 40mg 30caps take one Alexandro 2016 - capsule Zablocki, 10/17/ every M.D. 2016 day For 4Weeks Doxycycline 10/16/ Hx Capsules 50mg 30caps 1 by . Alexandro Dubois 2016 - mouth Zablocki, 12/01/ every M.D. 2016 day Refresh Optive 01/04/ Hx Solution 0.5-1-0.5% as Jenny Banks Advanced 2015 - needed [place], 12/27/ O.D. 2014 Tobradex 12/29/ Hx Suspension 0.3-0.1% 10ml 1 drop 4 372.06 eJnny Banks 2015 - times a Stockwin, 12/27/ day for O.D. 2014 2 days, then 3 times a day for 2 days, then 2 times a day for 2 days, then once a day for 2 days Erythromycin 12/26/ Hx Ointment 5mg/GM 1Tubes apply Priscila 2015 - thin Willie Salcedo, 10/06/ strip to O.D. 2016 all four eyelid margins every night at bedtime x 2 weeks Valacyclovir / Hx Tablets 500mg Unknown HCL - 2014 Amoxicillin/Cla / Hx Tablets 875-125mg Unknown vulanate 0000 - Potassium 2017 Oxycodone-Aceta / Hx Tablets 5-325mg Unknown minophen - 2014 Sulfamethoxazol / Hx Tablets 800-160mg Unknown e/Trimethoprim 0000 - DS 2017 Tobramycin-Dexa / Hx Suspension 0.3-0.1% 1 drop 4 Unknown methasone 0000 - times a both 2017 eyes Immunizations Description No Information Available Vital Signs Description No Information Available Results Description No Information Available Procedures Date Code Description Status 08/17/2017 45846 Est Patient Intermediate Exam Completed 08/16/2017 59636 Est Patient Intermediate Exam Completed 05/19/2017 69774 Est Patient Intermediate Exam Completed 12/02/2016 53853 Est Patient Intermediate Exam Completed 10/16/2016 65474 Est Patient Intermediate Exam Completed 04/03/2015 44134 Est Patient Intermediate Exam Completed 03/25/2015 15923 Est Patient Intermediate Exam Completed 01/16/2015 12320 Est Patient Intermediate Exam Completed 12/27/2014 95757 Est Patient Intermediate Exam Completed 03/27/2014 101 Level 1 SCL Fit/Refit Completed 03/27/2014 58004 Est Patient Comprehensive Exam Completed 03/27/2014 49754 Determination Of Refractive State Completed 07/19/2013 69695 Est Patient Intermediate Exam Completed 10/06/2012 37156 Est Patient Intermediate Exam Completed 07/12/2012 523 Goggles Completed 07/03/2012 08605 Est Patient Intermediate Exam Completed 05/15/2011 73345 Determination Of Refractive State Completed 05/15/2011 87906 Est Patient Comprehensive Exam Completed 09/11/2010 65880 Est Patient Intermediate Exam Completed Encounters Type Date Location Provider Dx Diagnosis Office Visit 03/26/2015 [facility] B30.3 Acute epidemic hemorrhagic 2:45p MD Shayan, beka Bateman O.D. conjunctivitis (enteroviral) Office Visit 01/05/2015 [facility] 372.20 Blepharoconjunctivitis 3:10p MD Shayan, beka Esparza O.D. Unspec Office Visit 12/29/2014 [facility] 372.06 Acute Chemical Conjunctivits 2:40p MD Shayan, beka Esparza O.D. Office Visit 03/02/2013 [facility] 373.00 Blepharitis Unspec 4:15p MD Shayan, beka Salcedo O.D. 372.14 Allergic Conjunctivitis Office Visit 02/01/2013 [facility] 373.00 Blepharitis Unspec 4:00p MD Downey Oltz, O.D. pc Office Visit 11/24/2012 [facility] 372.20 Blepharoconjunctivitis 4:15p MD Downey Oltz, O.D. Unspec pc Office Visit 11/10/2012 [facility] 372.20 Blepharoconjunctivitis 4:15p MD Downey Oltz, O.D. Unspec pc Office Visit 10/15/2012 [facility] 372.14 Allergic Conjunctivitis 2:00p MD Downey Oltz, O.D. pc Office Visit 07/12/2012 [facility] 373.00 Blepharitis Unspec 3:15p MD Downey Bishop, M.D. pc Office Visit 10/21/2010 [facility] 695.3 Rosacea 3:30p MD Downey Bishop, M.D. pc 370.49 Keratoconjunctivitis Other 373.00 Blepharitis Unspec Office Visit 09/18/2010 [facility] 373.00 Blepharitis Unspec 3:30p MD Shayan, Siomara Harry pc Office Visit 06/23/2005 [facility], 372.20 Blepharoconjunctivitis 9:45a MD Shayan, Daniel OD Unspec pc Office Visit 06/16/2005 [facility], 372.20 Blepharoconjunctivitis 12:15p MD Downey Weiheng OD Unspec pc Plan of Treatment 03/22/2018 - Jenny Esparza O.D.H16.141 Punctate keratitis, right eyeComments:Use Bacitracin both eyes at bedtime for 1 weekUse artificial tears castañeda eyes every 2 hours Use a cold or hot compress for [id number] Angular blepharoconjunctivitis, bilateralNew Medication:Avenova 0.01 % - spray on lids, rub, and leave on eye for 1 minute 2x/day both eyesFollow up:05/2018 cee with patti as sched
[2018-04-18 12:00] VITALS: BP 146/84
--- NOTE | 2018-04-18 13:00 | UC ---
Complaint Female HPI - HPI Summary HPI Summary: 47 y/o female presents to the urgent care c/o severe white vaginal discharge w/ a fishy odor and a lot of itchiness, also severe burning and frequency on urination for the past week. Pt reports she has Hx of chronic BV and Monica in 2016 and she thinks it is now returning. She also has a severe chronic constipation since childhood where she has to do an enema once a week to trigger a BM. This has caused her to have a lot of UTI. Her pain oon urination is severe today 02/10 since her genital area is very irritated. Pt also w/ Hx of Endometriosis she usually sees HEAD OF STRATE[facility] DR Valenzuela and another OBGYN in [place] for her problems. This time she couldn't get a sooner appt. LMP: w/ regular menstrual cycles. She has not taking anything to alleviate symptoms. Pt denies fever, Hx of STD's, SOB, chest pain, abdominal pain, lower back pain, flank pain, N/V/D. - History Of Current Complaint Chief Complaint: UCGU Stated Complaint: PERSONAL Time Seen by Provider: 04/18/18 12:08 Hx Obtained From: Patient Hx Last Menstrual Period: 03/25/18 ?: No Onset/Duration: Gradual Onset, Lasting Weeks - 1 week, Still Present, Worse Since - yesterday Timing: Lasting Seconds Severity Initially: Mild Severity Currently: Severe Pain Intensity: 10 - burning on urination Pain Scale Used: 0-10 Numeric Character: Burning Aggravating Factor(s): Urination, Other - vaginal discharge Associated Signs And Symptoms: Positive: Vaginal Discharge. Negative: Fever, Back Pain - Risk Factors Ectopic Risk Factor: Negative Ovarian Torsion Risk Factor: Negative - Allergies/Home Medications Allergies/Adverse Reactions: Allergies Allergy/AdvReac Type Severity Reaction Status Date / Time codeine Allergy SHALLOW Verified 04/18/18 12:00 BREATHING divalproex sodium Allergy Hallucinati Verified 04/18/18 12:00 [From Depakote] ons hydrocodone Allergy SHALLOW Verified 04/18/18 12:00 BREATHING hydromorphone [From Dilaudid] Allergy SEVERE Verified 04/18/18 12:00 MIGRAINE, GI SYMPTOMS lorazepam [From Ativan] Allergy ANXIETY, Verified 04/18/18 12:00 HALLUCINATIONS metoclopramide [From Reglan] Allergy PANIC Verified 04/18/18 12:00 ATTACKS midazolam [From Versed] Allergy ANXIETY, Verified 04/18/18 12:00 HALLUCINATIONS oxycodone Allergy SHALLOW Verified 04/18/18 12:00 BREATHNG prochlorperazine Allergy TONGUE Verified 04/18/18 12:00 [From Compazine] SWELLING topiramate [From Topamax] Allergy SHAKING Verified 04/18/18 12:00 DHE* Allergy ACCORDING Uncoded 03/20/18 19:55 TO PT PMH/Surg Hx/FS Hx/Imm Hx Previously Healthy: Yes Cardiovascular History: Cardiac Disease Other Respiratory History: chronic sinusitis GI/ History: Gastroesophageal Reflux Other GI/ History: chronic constipation. endometriosis Neurological History: Migraine - Surgical History Surgical History: Yes Surgery Procedure, Year, and Place: bunion removed. sinus surgery 2007. 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, UTERINE POLYP REMOVED 2017 - Family History Known Family History: Positive: Cardiac Disease, Hypertension - Social History Occupation: Employed Full-time Lives: With Family Alcohol Use: None Substance Use Type: None Smoking Status (MU): Never Smoked Tobacco Have You Smoked in the Last Year: No Review of Systems All Other Systems Reviewed And Are Negative: Yes Constitutional: Positive: Negative Skin: Positive: Negative Eyes: Positive: Negative ENT: Positive: Negative Respiratory: Positive: Negative Cardiovascular: Positive: Negative Gastrointestinal: Positive: Negative Genitourinary: Positive: Dysuria, Frequency, Urgency, Vaginal/Penile Burning, Vaginal/Penile Itching, Vaginal/Penile Discharge Motor: Positive: Negative Neurovascular: Positive: Negative Musculoskeletal: Positive: Negative Neurological: Positive: Negative Psychological: Positive: Negative Is Patient Immunocompromised?: No Physical Exam - Summary Physical Exam Summary: Vital signs: reviewed General: well developed, well nourished female sitting in the examining table w /o any acute distress. Head: Normocephalic, no lesions. Eyes: PERRLA, EOM's full, conjunctiva clear, fundi grossly normal. Ears: EAC's clear, TM's normal. Nose: Mucosa normal, no obstruction. Throat: Clear, no exudates, no lesions. Neck: Supple, no masses, no thyromegaly, no bruits. Chest: Lungs clear, no rales, no rhonchi, no wheezes. Heart: RR, no murmurs, no rubs, no gallops. Abdomen: Soft, no tenderness, no masses, BS normal. Pelvic: I was assisted by nurse Pema. External genitalia within normal limits. There is erythema in the labia majora, no masses noted. Speculum exam: The vaginal gómez are within normal limits w/ profuse greyish cottage cheese vaginal discharge, w/ fishy odor, no lesions or rashes. The cervix is closed with no lesions or masses. There is no CMT's, and no adnexal masses. Sample sent to Lab for Affirm panel. Rectal: No lesions, no hemorrhoids, Back: Normal curvature, no tenderness. Extremities: FROM, no deformities, no edema, no erythema. Neuro: Physiological, no localizing findings. Skin: Normal, no rashes, no lesions noted. Triage Information Reviewed: Yes Vital Signs: Initial Vital Signs Temp 98.6 F 04/18/18 11:48 Pulse 106 04/18/18 11:48 Resp 18 04/18/18 11:48 BP 146/84 04/18/18 11:48 Pulse Ox 100 04/18/18 11:48 Complaint Female Dx - Course Course Of Treatment: 47 y/o female presents to the urgent care c/o severe white vaginal discharge w/ a fishy odor and a lot of itchiness, also severe burning and frequency on urination for the past week. Pt reports she has Hx of chronic BV and Monica in 2016 and she thinks it is now returning. She also has a severe chronic constipation since childhood where she has to do an enema once a week to trigger a BM. This has caused her to have a lot of UTI. Her pain oon urination is severe today 10/10 since her genital area is very irritated. Pt also w/ Hx of Endometriosis she usually sees HEAD OF STRATE[facility] DR Valenzuela and another OBGYN in [place] for her problems. This time she couldn't get a sooner appt. LMP:03/25/2018 w/ regular menstrual cycles. She has not taking anything to alleviate symptoms. Pt denies fever, Hx of STD's, SOB, chest pain, abdominal pain, lower back pain, flank pain, N/V/D. Hx obtained. I was assited by Nurse Pema. There is erythema in the labia majora, no masses noted. Speculum exam : The vaginal gómez are within normal limits w/ profuse greyish cottage vaginal discharge, no lesions or rashes. The cervix is closed, no lesiosn, no masses. There is no CMT's, and no adnexal masses. Sample sent to Lab for affirm panel. UA: + trace blood, leukoesterase 2+. test:negative. Urine sent for culture, Pt will be notified of any abdnormality. Pt Rx Metronidazole PO , fluconazole PO and Miconazole topical cream as directed below. Pt als Rx Pyridium PO to alleviate dysuria. Pt strongly advised not to take Zofran while taking Fluconazole since they can interac and cause QT prolongation. Pt also advised if not improvment of symptoms to f/u w/ her HEAD OF STR[facility]GY in 3 days for further management. Pt's BP is elevated today advised to decrease salt in diet, monitor BP and f/u with PCP for further management. D/C instructions explained. Pt understood and agreed with plan of care. - Differential Dx/Diagnosis Differential Diagnosis/HQI/PQRI: Cervicitis, Endometriosis, Pelvic Inflammatory Disease, , Renal Colic, Sexually Transmitted Disease, Ureteral Stone, Urinary Tract Infection Provider Diagnosis: Bacterial vaginosis, Vaginal monica, Dysuria, Uncontrolled hypertension Discharge - Sign-Out/Discharge Documenting (check all that apply): Patient Departure - D/c home All imaging exams completed and their final reports reviewed: No Studies - Discharge Plan Condition: Stable Disposition: HOME Prescriptions: Fluconazole 150 MG TAB* [Diflucan 150 MG TAB*] 150 mg PO ED ONCE #3 tablet metroNIDAZOLE * 500 mg PO BID #14 tablet Miconazole TOPICAL CREAM 2%* [Monistat 2%*] 1 applic TOPICAL BID #1 tube Phenazopyridine TAB* [Pyridium 100 mg TAB*] 100 mg PO TID #6 tab Patient Education Materials: Bacterial Vaginosis (ED), Yeast Infection (ED), Vaginitis (ED) Referrals: Laurel Quintana MD [Primary Care Provider] - 3 Days Additional Instructions: 1- Please take medications as directed. PLEASE STOP TAKING ZOFRAN WHILE YOU TAKE THE FLUCONAZOLE, THEY CAN INTERACT AND CAUSE PROBLEMS TO YOUR HEART. 2-Take Metronidazole PO as directed. Please do not drink alcohol while you are taking the medication 3- Vaginal Specimen and UA were sent to lab, if anything abnormal you will receive a call from us for further treatment. 4- Please apply Miconazloe topical cream to alleviate your vaginal irritation. 5-If not improvement of symptoms please f/u with your HEAD OF STRATEGY in 3 days for further treatment. 6-Your BP is elevated today. please decrease salt in your diet, monitor BP and if it continues to be elevated please f/u with your PCP for further management - Billing Disposition and Condition Condition: STABLE Disposition: Home
--- NOTE | 2018-04-20 15:28 | ED ---
Progress - Progress Note Progress Note: 04/20/2018 Urine culture negative, no growth Vaginal swabs, Positive for Beulah, negative for Gardnerella. Please call back patient and inform her of results and advised to continue taking Fluconazole PO and Miconazole topical cream, but stop the Metronidazole PO Thank you Asia Rosales PA-C Course/Dx - Course Course Of Treatment: 47 y/o female presents to the urgent care c/o severe white vaginal discharge w/ a fishy odor and a lot of itchiness, also severe burning and frequency on urination for the past week. Pt reports she has Hx of chronic BV and Beulah in 2016 and she thinks it is now returning. She also has a severe chronic constipation since childhood where she has to do an enema once a week to trigger a BM. This has caused her to have a lot of UTI. Her pain oon urination is severe today 02/10 since her genital area is very irritated. Pt also w/ Hx of Endometriosis she usually sees [facility] DR Valenzuela and another OBGYN in [place] for her problems. This time she couldn't get a sooner appt. LMP:03/25/2018 w/ regular menstrual cycles. She has not taking anything to alleviate symptoms. Pt denies fever, Hx of STD's, SOB, chest pain, abdominal pain, lower back pain, flank pain, N/V/D. Hx obtained. I was assited by Nurse Pema. There is erythema in the labia majora, no masses noted. Speculum exam : The vaginal gómez are within normal limits w/ profuse greyish cottage vaginal discharge, no lesions or rashes. The cervix is closed, no lesiosn, no masses. There is no CMT's, and no adnexal masses. Sample sent to Lab for affirm panel. UA: + trace blood, leukoesterase 2+. test:negative. Urine sent for culture, Pt will be notified of any abdnormality. Pt Rx Metronidazole PO , fluconazole PO and Miconazole topical cream as directed below. Pt als Rx Pyridium PO to alleviate dysuria. Pt strongly advised not to take Zofran while taking Fluconazole since they can interac and cause QT prolongation. Pt also advised if not improvment of symptoms to f/u w/ her [facility] in 3 days for further management. Pt's BP is elevated today advised to decrease salt in diet, monitor BP and f/u with PCP for further management. D/C instructions explained. Pt understood and agreed with plan of care. - Diagnoses Provider Diagnoses: Bacterial vaginosis, Vaginal beulah, Dysuria, Uncontrolled hypertension Discharge - Sign-Out/Discharge Documenting (check all that apply): Patient Departure - d/c home All imaging exams completed and their final reports reviewed: No Studies - Discharge Plan Condition: Stable Disposition: HOME Prescriptions: Fluconazole 150 MG TAB* [Diflucan 150 MG TAB*] 150 mg PO ED ONCE #3 tablet metroNIDAZOLE * 500 mg PO BID #14 tablet Miconazole TOPICAL CREAM 2%* [Monistat 2%*] 1 applic TOPICAL BID #1 tube Phenazopyridine TAB* [Pyridium 100 mg TAB*] 100 mg PO TID #6 tab Patient Education Materials: Bacterial Vaginosis (ED), Yeast Infection (ED), Vaginitis (ED) Referrals: Laurel Quintana MD [Primary Care Provider] - 3 Days Additional Instructions: 1- Please take medications as directed. PLEASE STOP TAKING ZOFRAN WHILE YOU TAKE THE FLUCONAZOLE, THEY CAN INTERACT AND CAUSE PROBLEMS TO YOUR HEART. 2-Take Metronidazole PO as directed. Please do not drink alcohol while you are taking the medication 3- Vaginal Specimen and UA were sent to lab, if anything abnormal you will receive a call from us for further treatment. 4- Please apply Miconazloe topical cream to alleviate your vaginal irritation. 5-If not improvement of symptoms please f/u with your [facility] in 3 days for further treatment. 6-Your BP is elevated today. please decrease salt in your diet, monitor BP and if it continues to be elevated please f/u with your PCP for further management - Billing Disposition and Condition Condition: STABLE Disposition: Home
== END 2018-04-18 14:00 | disposition home or self-care (01) ==
LOC: UCEAST 10:52
DX: N76.0 Acute vaginitis (principal); B96.89 Other specified bacterial agents as the cause of diseases classified elsewhere; B37.3 Candidiasis of vulva and vagina; R30.0 Dysuria; I10 Essential (primary) hypertension; Z88.5 Allergy status to narcotic agent; Z88.8 Allergy status to other drugs, medicaments and biological substances
CPT/HCPCS: 81003; 84702; 87086; 87480; 87510; 99212; G0463

== ENCOUNTER 2018-11-14 07:47 | Observation (INO) | payer BC ==
[2018-11-14] MEDS ORDERED: Pantoprazole IV* 40 MG IV ONE (08:00)
[2018-11-14] MEDS ORDERED: Ondansetron INJ* 2 MG/ML VIAL IV ONE ×2 (08:00→12:17)
[2018-11-14] MEDS ORDERED: NS 0.9% 1000 ML** 2,000 ML IV ONE (08:00)
--- NOTE | 2018-11-14 08:00 | ED ---
GI/ HPI - HPI Summary HPI Summary: A 48 y/o female brought in by [facility] ambulance presents to [facility] with a chief complaint of N/V for one week. She says that she has cyclic vomiting syndrome. She denies smoking marijuana. She says that she has not eaten in a week. She also reports heart burn and espohageal burning. At triage she rated her pain as a 10/10 in severity. She reports a Hx of migraines, fibromyalgia and endometriosis. She also says that she has chronic constipation, using an enema every week, but says that she has not used it in 4 weeks. She has not seen her GI at [facility] "in a while". She says that the last time she had cyclic vomiting was two years ago. - History of Current Complaint Stated Complaint: VOMITING PER EMS Hx Obtained From: Patient, EMS Hx Last Menstrual Period: 03/25/18 Onset/Duration: Started Days Ago, Still Present Timing: Constant, Lasting Days Severity: Severe Current Severity: Severe Pain Intensity: 10 - 10 Location of Pain: Other - heartburn, esophageal burning Pain Characteristics: Burning Associated Signs and Symptoms: Positive: Constipation, Other: - not eating for 1 week, heart burn, esophageal burning. Negative: Fever Aggravating Factor(s): Nothing Alleviating Factor(s): Nothing - Allergy/Home Medications Allergies/Adverse Reactions: Allergies Allergy/AdvReac Type Severity Reaction Status Date / Time codeine Allergy SHALLOW Verified 04/18/18 12:00 BREATHING divalproex sodium Allergy Hallucinati Verified 04/18/18 12:00 [From Depakote] ons hydrocodone Allergy SHALLOW Verified 04/18/18 12:00 BREATHING hydromorphone [From Dilaudid] Allergy SEVERE Verified 04/18/18 12:00 MIGRAINE, GI SYMPTOMS lorazepam [From Ativan] Allergy ANXIETY, Verified 04/18/18 12:00 HALLUCINATIONS metoclopramide [From Reglan] Allergy PANIC Verified 04/18/18 12:00 ATTACKS midazolam [From Versed] Allergy ANXIETY, Verified 04/18/18 12:00 HALLUCINATIONS oxycodone Allergy SHALLOW Verified 04/18/18 12:00 BREATHNG prochlorperazine Allergy TONGUE Verified 04/18/18 12:00 [From Compazine] SWELLING topiramate [From Topamax] Allergy SHAKING Verified 04/18/18 12:00 DHE* Allergy ACCORDING Uncoded 11/17/18 19:55 TO PT Home Medications: Home Medications Ondansetron ODT TAB* [Zofran 4 MG Odt TAB*] 4 mg PO DAILY 11/14/18 [History Confirmed 11/14/18] PMH/Surg Hx/FS Hx/Imm Hx Endocrine/Hematology History: Denies: Hx Diabetes, Hx Thyroid Disease Cardiovascular History: Reports: Hx Hypertension Denies: Hx Pacemaker/ICD, Hx Peripheral Vascular Disease Respiratory History: Denies: Hx Asthma, Hx Chronic Obstructive Pulmonary Disease (COPD) GI History: Denies: Hx Ulcer Musculoskeletal History: Reports: Hx Scoliosis Denies: Hx Arthritis, Hx Osteoporosis Sensory History: Reports: Hx Contacts or Glasses Denies: Hx Cataracts, Hx Glaucoma, Hx Hearing Aid Opthamlomology History: Reports: Hx Contacts or Glasses Denies: Hx Cataracts, Hx Glaucoma Neurological History: Reports: Other Neuro Impairments/Disorders - HX OF FIBROMYALGIA Denies: Hx Headaches, Hx Seizures, Hx Transient Ischemic Attacks (TIA) Psychiatric History: Denies: Hx Anxiety, Hx Depression, Hx Panic Disorder - Cancer History Hx Chemotherapy: No Hx Radiation Therapy: No - Surgical History Surgery Procedure, Year, and Place: bunion removed. sinus surgery 2007. 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, UTERINE POLYP REMOVED 2017 - Immunization History Date of Tetanus Vaccine: unknown Infectious Disease History: Reports: Hx of Known/Suspected MRSA - IN SINUSES Denies: Hx Clostridium Difficile, Hx Hepatitis, Hx Human Immunodeficiency Virus (HIV), Traveled Outside the [place] in Last 30 Days - Family History Known Family History: Positive: Cardiac Disease, Hypertension - Social History Alcohol Use: None Hx Substance Use: No Substance Use Type: Reports: None Hx Tobacco Use: No Smoking Status (MU): Never Smoked Tobacco Have You Smoked in the Last Year: No Review of Systems Negative: Fever Positive: Vomiting, Nausea, Other - positive: heartburn, esophageal burning, constipation All Other Systems Reviewed And Are Negative: Yes Physical Exam - Summary Physical Exam Summary: VITAL SIGNS: Reviewed. GENERAL: Patient is a well-developed and nourished FEMALE who is lying comfortable in the stretcher. Patient is not in any acute respiratory distress. HEAD AND FACE: No signs of trauma. No ecchymosis, hematomas or skull depressions. No sinus tenderness. EYES: PERRLA, EOMI x 2, No injected conjunctiva, no nystagmus. EARS: Hearing grossly intact. Ear canals and tympanic membranes are within normal limits. MOUTH: Oropharynx within normal limits. NECK: Supple, trachea is midline, no adenopathy, no JVD, no carotid bruit, no c- spine tenderness, neck with full ROM. CHEST: Symmetric, no tenderness at palpation. LUNGS: Clear to auscultation bilaterally. No wheezing or crackles. CVS: Regular rate and rhythm, S1 and S2 present, no murmurs or gallops appreciated. ABDOMEN: Soft, non-tender. No signs of distention. No rebound, no guarding, and no masses palpated. Bowel sounds are normal. EXTREMITIES: FROM in all major joints, no edema, no cyanosis or clubbing. NEURO: Alert and oriented x 3. No acute neurological deficits. Speech is normal and follows commands. SKIN: Dry and warm. PSYCH: anxious Triage Information Reviewed: Yes Vital Signs Reviewed: Yes Diagnostics - Laboratory Result Diagrams: 11/15/18 13:10 11/15/18 13:10 Lab Statement: Any lab studies that have been ordered have been reviewed, and results considered in the medical decision making process. - Radiology abdomen x-ray Radiology Interpretation Completed By: Radiologist Summary of Radiographic Findings: NONOBSTRUCTIVE BOWEL GAS PATTERN. ED physician has reviewed this imaging report. - EKG 08:08 Cardiac Rate: Tachycardia - 126 bpm EKG Rhythm: Sinus Tachycardia ST Segment: Normal Summary of EKG Findings: sinus tachycardia at [address] elevations. Re-Evaluation - Re-Evaluation First Eval Re-Evaluation Time: 11:04 Change: Unchanged Comment: Pt is still nauseous, Symptoms are not improving. GIGU Course/Dx - Course Assessment/Plan: A 48 y/o female brought in by [facility] ambulance presents to [facility] with a chief complaint of N/V for one week. She says that she has cyclic vomiting syndrome. She denies smoking marijuana. She says that she has not eaten in a week. She also reports heartburn and esophageal burning. At triage she rated her pain as a 10/10 in severity. She reports a Hx of migraines, fibromyalgia and endometriosis. She also says that she has chronic constipation , using an enema every week, but says that she has not used it in 4 weeks. She has not seen her GI at [facility] "in a while". She says that the last time she had cyclic vomiting was two years ago. In the ED course the patient was placed in a school bus monitor, IV access was obtained, IV fluids were started. Because of the nausea and vomiting the patient was given Zofran, Benadryl, Protonix. Patient continues to have nausea and vomiting therefore she was given Valium and the symptoms seem to be improving. Blood work without any significant abnormality except for chloride 100, double (21, anion gap is 18, glucose 154, calcium 10.5, AST 50, AST 76, total protein is 9.1 and amylase is 1:15 with a normal lipase of 52. The patient continues to have nausea and vomiting therefore she was given another dose of Valium and Zofran. She continues to have IV fluids. I discussed my physical exam and test results with Dr. Bailey from the hospitalist services and she agrees to admit patient to her services. Patient is hemodynamically stable alert and oriented x 3. - Diagnoses Provider Diagnoses: Cyclic vomiting syndrome - Physician Notifications Discussed Care Of Patient With: Maribell Bailey Time Discussed With Above Provider: 12:21 Instructed by Provider To: Admit As Inpatient Discharge - Sign-Out/Discharge Documenting (check all that apply): Patient Departure - admit Patient Received Moderate/Deep Sedation with Procedure: No - Discharge Plan Condition: Fair Disposition: ADMITTED TO [facility] - Billing Disposition and Condition Condition: FAIR Disposition: Admitted to [facility] - Attestation Statements Document Initiated by Gama: Yes Documenting Scribe: Cristhian Bang Provider For Whom Gama is Documenting (Include Credential): Elijah Davis MD Scribe Attestation: I, Cristhian Bang, scribed for Elijah Davis MD on 11/15/18 at 2018. Scribe Documentation Reviewed: Yes Provider Attestation: The documentation as recorded by the Cristhian [place] accurately reflects the service I personally performed and the decisions made by , Elijah Davis MD Status of Scribe Document: Viewed
[2018-11-14] MEDS ORDERED: diPHENhydraMINE IV* 50 MG/ML 1 ml VIAL (BENADRYL) IV ONE (08:03)
[2018-11-14] MEDS ORDERED: Diazepam SYRINGE* 5 MG/ML 2 ML SYRINGE (10 MG total) IV ONE ×2 (08:30→11:11)
[2018-11-14] MEDS ORDERED: PROCHLORPERAZINE INJ 5 MG/ML 2 ML VIAL IV PRN (08:30)
[2018-11-14] MEDS ORDERED: Diazepam INJ (NF) 5 MG/ML 10 ML VIAL (50 MG TOTAL) IV ONE ×2 (08:45→11:30)
[2018-11-14 08:54] LABS: ABS Basophils 0.1 10^3/ul (0-0.2); ABS Lymphocytes 1.6 10^3/ul (1.0-4.8); ABS Monocytes 0.5 10^3/ul (0-0.8); ABS Neutrophils 3.6 10^3/ul (1.5-7.7); Eosinophil % 0.1 %; Hematocrit 43 % (35-47); Hemoglobin 14.5 g/dL (12.0-16.0); Lymphocyte % 27.4 %; Mean Corpuscular HGB Conc 34 g/dL (31-36); Mean Corpuscular Hemoglobin 31 pg (27-31); Mean Corpuscular Volume 93 fL (80-97); Mean Platelet Volume 8.6 fL (7.4-10.4); Platelet Count 273 10^3/uL (150-450); Red Blood Count 4.64 10^6 /uL (3.70-4.87); Red Cell Distribution Width 14 % (10-15); White Blood Count 5.7 10^3/uL (3.5-10.8)
[2018-11-14 09:06] LABS: ALT 76 U/L (7-52); AST 50 U/L (13-39); Albumin 5.8 g/dL (3.2-5.2); Albumin/Globulin Ratio 1.8 (1-3); Alkaline Phosphatase 89 U/L (34-104); Amylase 115 U/L (29-103); Anion Gap 18 mmol/L (2-11); BUN/Creatinine Ratio 16.8 (8-20); Blood Urea Nitrogen 16 mg/dL (6-24); C Reactive Protein < 1.00 mg/L (<8.01); CO2 Carbon Dioxide 21 mmol/L (22-32); Calcium 10.5 mg/dL (8.6-10.3); Chloride 100 mmol/L (101-111); EGFR Non-African American 62.8 (>60); Globulin 3.3 g/dL (2-4); Glucose 154 mg/dL (70-100); Potassium 3.8 mmol/L (3.5-5.0); Sodium 139 mmol/L (135-145); Total Protein 9.1 g/dL (6.4-8.9)
[2018-11-14] MEDS ORDERED: NS 0.9% 1000 ML** 1,000 ML IV ONE (11:10)
[2018-11-14] MEDS ORDERED: Ondansetron INJ* 2 MG/ML VIAL ONE (12:18)
[2018-11-14] MEDS ORDERED: Acetaminophen TAB* 325 MG PO PRN (13:14)
[2018-11-14] MEDS ORDERED: Ondansetron INJ* 2 MG/ML VIAL IV PRN (13:14)
[2018-11-14] MEDS ORDERED: Promethazine INJ(RESTRICTED)* 25 MG/ML 1 ML VIAL IV PRN (13:14)
[2018-11-14] MEDS ORDERED: diPHENhydraMINE IV* 50 MG/ML 1 ml VIAL (BENADRYL) SLOW PUSH PRN (13:14)
[2018-11-14] MEDS ORDERED: PROMETHAZINE IVPB PRN (14:01)
[2018-11-14] MEDS ORDERED: NS 0.9% IVPB PRN (14:01)
[2018-11-14] MEDS ORDERED: ZOLMitriptan ODT(NF) 5 MG TAB SL PRN (14:53)
[2018-11-14] MEDS: NS 0.9% 1000 ML** 1,000 ML IV SCH (16:06)
[2018-11-14] MEDS: Gabapentin CAP(*) 300 MG PO SCH ×2 (16:33→21:37)
[2018-11-14] MEDS: Nortriptyline CAP* 10 MG PO SCH (16:33)
[2018-11-14] MEDS: Diazepam INJ (NF) 5 MG/ML 10 ML VIAL (50 MG TOTAL) IV PRN (18:15)
--- NOTE | 2018-11-14 18:24 | HP ---
CC: Dr. Laurel Quintana; Dr. Cameron Castillo at [facility] * ADMISSION HISTORY AND PHYSICAL: DATE OF ADMISSION: 11/14/18 PRIMARY CARE DOCTOR: Laurel Quintana MD. OUTPATIENT PRIMARY CARE NURSE: Cameron Castillo MD at [facility]. MY ATTENDING PHYSICIAN WHILE IN HOSPITAL: Dr. Maribell Bailey *(DICTATED BY FRANDY GAVIRIA) CHIEF COMPLAINT: Nausea and vomiting x1 week. HISTORY OF PRESENT ILLNESS: Ms. 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 The patient states that she gets these episodes where she vomits uncontrollably for weeks at a time usually associated with her menstrual cycle, but has been relatively well controlled on progesterone therapy; most recent episode where she thought she would need to come to the hospital 2 years ago, but she was able to control this at home. The patient states that it usually occurred in the 5 days or so before her menstrual period then would go away. She was admitted several times back in 2010. The patient had the supervisor tunnel heading evaluate this significantly for this with no cause being found. The patient also has chronic migraines, she responded well to her zolmitriptan, but she has a migraine at this time and has frequently without complete resolution with her zolmitriptan. The patient was prompted to come to the emergency department this morning due to uncontrolled of vomiting, which has to a degree that has not happened to her in a long time with some initial vomiting of dark material and then some small amounts of ev red blood. The patient denies fevers, chills, no sick contacts. Patient is mainly homebound. The patient lost 8 pounds since approximately 1 month ago. The patient has chronic constipation, had one, and usually gives this weekly to monthly enemas to induce bowel movements. These are warm tap water enemas. Shower has not had done 1 in a month due to a personal stressors including her mother's cancer, sick pets, and her general illness. The patient complains of breast soreness, which is leading her to believe that this is related to her hormones. Patient is concerned she is perimenopausal. The patient has not taken her meds since yesterday during the day as she has not been able to tolerate them due to vomiting. The patient has severe burning in her esophagus and epigastric region, worse with vomiting and dry heaving. The patient has light sensitivity. The patient states this is significantly like her other episodes of cyclical vomiting. The patient has a gallbladder polyp which has been monitored with serial ultrasound, this has been stable for a long period of time, do not have precancerous features. Due to the concern for intractable nausea and vomiting, uncontrolled in the emergency department by diazepam, Zofran, Benadryl, and pantoprazole as well as patient's home zolmitriptan, we are asked to evaluate the patient for admission to the hospital. PAST MEDICAL HISTORY: Chronic migraines, GERD, cyclic vomiting syndrome, hypertension, IBS constipation predominant, asthma, endometriosis, fibromyalgia , gallbladder polyp, possible early-stage small fiber neuropathy, undifferentiated fatigue, and chronic pain syndrome. PAST SURGICAL HISTORY: Radical sinus surgery, foot surgery, tonsils removal, bladder polyp removal. MEDICATIONS: 1. Norethindrone 0.35 mg p.o. daily. 2. Neurontin 60 mg p.o. t.i.d. 3. Nortriptyline 40 mg p.o. nightly. 4. Atenolol 12.5 mg p.o. b.i.d. 5. Lisinopril 10 mg p.o. daily. 6. Zantac 150 mg p.o. daily. 7. Ariane 180 mg p.o. daily. 8. Zolmitriptan 5 mg p.o. daily as needed. 9. Zofran 4 mg p.o. q. 6 hours as needed. 10. Montelukast 10 mg p.o. daily. ALLERGIES: CODEINE, DIVALPROEX, HYDROCODONE, HYDROMORPHONE, LORAZEPAM, REGLAN, MIDAZOLAM, OXYCODONE, COMPAZINE, TOPAMAX, DIHYDROERGOTAMINE. FAMILY HISTORY: The patient's father has 3 MIs and thoracic aortic aneurysm. The patient's mother has thyroid cancer, breast cancer, and uterine cancer. They both alive. The patient has an aunt who had an NM. The patient is an only child. SOCIAL HISTORY: The patient never smoked. The patient does not drink alcohol. The patient denies illicit drug use. 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 The patient is , has no children. REVIEW OF SYSTEMS: A 14-point review of systems were reviewed, is negative except as above in the HPI. PHYSICAL EXAMINATION GENERAL: The patient is a 48-year-old female appears stated age, sitting in the bed, dry heaving and vomiting small amounts of mucous. VITAL SIGNS: At the time of evaluation temperature 98.2, pulse rate 104, respiratory rate 18, oxygen saturation 97% on room air, blood pressure 140/100. HEENT: Head: Normocephalic, atraumatic. Sclerae anicteric. No conjunctival injection. Nasal mucosa moist. Oral mucosa moist. No pharyngeal erythema, discharge, or exudate. NECK: Supple, nontender. No lymphadenopathy. No carotid bruit auscultated. No JVD. RESPIRATORY: Clear to auscultation bilaterally. No wheezes, rales or rhonchi. Good air exchange bilaterally. HEART: Tachycardic. No clicks, murmurs, gallops or rubs. Pulse is 2+ in the dorsalis pedis, posterior tibialis, and radialis. ABDOMEN: Soft, tender to palpation throughout particularly in the right upper quadrant. No carotid bruits auscultated. No hepatojugular reflux. GENITOURINARY: No suprapubic or CVA tenderness. SKIN: Clear, intact. NEURO: Cranial nerves II through XII intact. No focal deficits. Alert and oriented x3. PSYCHIATRIC: Pleasant and cooperative. DIAGNOSTIC STUDIES/LAB DATA: White blood cell count 5.7, hemoglobin 14.5, platelet count 273. Sodium 139, potassium 2.8, chloride 100, carbon dioxide 21 , anion gap 18, BUN 16, creatinine 0.95, glucose 154, calcium 10.5, magnesium 2.0, bilirubin 0.5, AST 50, ALT 76, alkaline phosphatase 89. CRP less than 100 , albumin 5.8, globulin 3.3, amylase 115, lipase 52. Studies: Abdominal x-ray shows nonspecific bowel gas pattern stool, large amount of stool in the distal colon. Electrocardiogram shows QTc of 458, rate of 115, sinus tachycardia, no hypertrophy/enlargement. No ST segment elevation or depression. ASSESSMENT AND PLAN/IMPRESSION: Ms. Hobbs is a 48-year-old female with past medical history significant for cyclic vomiting syndrome, chronic migraines, irritable bowel syndrome and undifferentiated connective tissue disorder with chronic pain, fatigue, who presents to the emergency department with 7 days of nausea and vomiting, which got acutely worse over the last day with her being unable to tolerate any fluids or food. The patient has failed intensive treatment in the emergency department and admitted to the hospital for evaluation and control of her symptoms. 1. Cyclic vomiting syndrome, dehydration. The patient has extreme nausea with significant vomiting. The patient's lab work supports significant dehydration with signs of hemoconcentration likely ketosis from lack of eating. The patient will be given IV fluids. The patient has allergies to REGLAN and to COMPAZINE. The patient had limited improvement with Zofran. The patient takes Phenergan at home in suppository form. This will be transitioned to IV due to concern for sporadic absorption given constipation and enema and the plan for enema usage. The patient has not had bowel movements in 4 weeks has a large amount of stool in her colon though this is not an uncommon amount of time for the patient to go without having bowel movement this is likely not either contributory or not helpful to the patient's current conditions. This will will have to be resolved with warm tap water enemas, which is usually help at home, soapsuds enemas or sodium phosphatase enemas maybe used. If this is unsuccessful or the patient's symptoms are persistent, the patient also had significant relief from diazepam patient is ATIVAN intolerant. The patient is already on a suppressive therapy with nortriptyline. This institution does not have other classes of antiemetic medication such as NK-1 Inhibitors which have been shown to be effective in cyclical vomiting syndrome, but the patient should follow up with her outpatient supervisor tunnel heading to discuss for possible use of these medications. The patient will have a gallbladder ultrasound to asses for gallbladder polyp and any possibility that this could be compressing her cystic duct or her common bile duct and contributing some nausea pain and possible transaminitis, though this is unlikely given the patient's nonobstructive pattern. 3. Slight hematemesis. This is very likely due to a Lilliana-Georges tear. The patient has a hemoglobin of 14.5 though this is likely somewhat hemoconcentrated. The patient will be monitored for increased volume of hematemesis, melena, or other symptoms alarming for higher volume of GI bleeding. The patient will be continued on pantoprazole IV daily as well as Pepcid IV to replace the Zantac that she usually takes at home. 4. Fibromyalgia. Continue the patient's gabapentin. 5. Hypertension. Continue the patient's atenolol, and lisinopril. The patient is currently slightly hypertensive despite dehydration. 6. Mild intermittent asthma. The patient is on exacerbation. Continue montelukast. 7. Transaminitis. This has been present previously with the patient's cyclic vomiting syndrome and is likely due to mild hypoperfusion given significant dehydration. This will be trended in the morning. Additional evaluation for this should be considered if this gets worse or the patient's symptoms are persistent. 8. FEN diet. The patient will be on clear liquid diet and normal saline 100 mL an hour. 9. DVT prophylaxis: SCDs only in the setting of Lilliana-Georges tear and low risk. 10. Disposition: The patient will be admitted under observation in the hospital. TIME SPENT: Approximately 75 minutes was spent on this admission with the patient, 30 of which was spent [id number] with the patient obtaining history and physical. This plan was discussed with my attending, Dr. Maribell Bailey, and she is in agreement. FRANDY GAVIRIA [id number]/[facility] #: [id number] MTDMaria L
[2018-11-14] MEDS ORDERED: ZOLMITRIPTAN 5 MG SL PRN (21:00)
[2018-11-14] MEDS: Atenolol TAB* 25 MG PO SCH (21:38)
[2018-11-14] MEDS: Famotidine IV* 10 MG/ML 2 ML (20 mg) IV SLOW PU SCH (21:39)
[2018-11-15] MEDS: Diazepam INJ (NF) 5 MG/ML 10 ML VIAL (50 MG TOTAL) IV PRN (02:45)
[2018-11-15] MEDS: NS 0.9% 1000 ML** 1,000 ML IV SCH (04:20)
[2018-11-15] MEDS: Famotidine IV* 10 MG/ML 2 ML (20 mg) IV SLOW PU SCH ×2 (07:44→22:07)
[2018-11-15] MEDS: Pantoprazole IV* 40 MG IV SCH (07:44)
[2018-11-15] MEDS: NORETHINDRONE ACETATE PO SCH (07:49)
[2018-11-15] MEDS: Nortriptyline CAP* 10 MG PO SCH (07:50)
[2018-11-15] MEDS: Montelukast Sodium TAB* 10 MG PO SCH (07:50)
[2018-11-15] MEDS: Cetirizine* 10 MG TAB PO SCH (07:50)
[2018-11-15] MEDS: Gabapentin CAP(*) 300 MG PO SCH ×3 (07:50→22:06)
[2018-11-15] MEDS: Atenolol TAB* 25 MG PO SCH ×2 (07:51→22:06)
[2018-11-15] MEDS: Lisinopril TAB* 10 MG PO SCH (07:51)
[2018-11-15] MEDS ORDERED: ZOLMITRIPTAN 5 MG PO SCH (09:00)
[2018-11-15] MEDS ORDERED: Atenolol TAB* 25 MG PO SCH (09:00)
[2018-11-15 13:17] LABS: ABS Basophils 0.1 10^3/ul (0-0.2); ABS Lymphocytes 1.6 10^3/ul (1.0-4.8); ABS Monocytes 0.5 10^3/ul (0-0.8); ABS Neutrophils 4.3 10^3/ul (1.5-7.7); Eosinophil % 0.3 %; Hematocrit 34 % (35-47); Hemoglobin 11.6 g/dL (12.0-16.0); Lymphocyte % 23.9 %; Mean Corpuscular HGB Conc 34 g/dL (31-36); Mean Corpuscular Hemoglobin 31 pg (27-31); Mean Corpuscular Volume 93 fL (80-97); Mean Platelet Volume 8.3 fL (7.4-10.4); Nucleated Red Blood Cells % 0.1; Platelet Count 173 10^3/uL (150-450); Red Blood Count 3.69 10^6 /uL (3.70-4.87); Red Cell Distribution Width 15 % (10-15); White Blood Count 6.5 10^3/uL (3.5-10.8)
[2018-11-15 13:40] LABS: Albumin 4.5 g/dL (3.2-5.2); Albumin/Globulin Ratio 2.1 (1-3); BUN/Creatinine Ratio 11.9 (8-20); Calcium 8.8 mg/dL (8.6-10.3); EGFR African American 131.6 (>60); EGFR Non-African American 108.8 (>60); Globulin 2.1 g/dL (2-4); Magnesium 1.9 mg/dL (1.9-2.7); Potassium 3.2 mmol/L (3.5-5.0); Total Bilirubin 0.4 mg/dL (0.2-1.0); Total Protein 6.6 g/dL (6.4-8.9)
[2018-11-15] MEDS: D5W 1/2 NS 40 Meq KCL 1000 ML* 1,000 ML IV SCH (15:43)
[2018-11-15] MEDS: Diazepam TAB(*) 5 MG PO PRN (17:06)
[2018-11-15] MEDS ORDERED: tiZANidine TAB* 2 MG PO PRN (19:01)
--- NOTE | 2018-11-15 19:16 | PN ---
Subjective Date of Service: 11/15/18 Interval History: Patient continues to have intermittent nausea and burning epigastric pain. Patient had cramping pain in LLQ after large BM yesterday. Patient has minimal vomiting and no Hematemesis. Patient has no dizziness on standing. Patient denies F/C, CP, SOB. Patient tried several enemas today with no success. Discussed at length with family and patient the pros and cons of further evaluation of stomach for ulcers or other pathology. Family History: Unchanged from Admission Social History: Unchanged from Admission Past Medical History: Unchanged from Admission Objective Active Medications: Acetaminophen (Tylenol Tab*) 650 mg PO Q6H PRN PRN Reason: FEVER/PAIN Atenolol (Tenormin Tab*) 12.5 mg PO BID [facility] Last Admin: 11/15/18 07:51 Dose: 12.5 mg Cetirizine HCl (Zyrtec*) 10 mg PO DAILY [facility]; Protocol Last Admin: 11/15/18 07:50 Dose: 10 mg Diazepam (Valium Tab(*)) 5 mg PO Q8H PRN PRN Reason: Breakthrough Nausea Last Admin: 11/15/18 17:06 Dose: 5 mg Diphenhydramine HCl (Benadryl Iv*) 25 mg SLOW PUSH Q6H PRN PRN Reason: Headache Famotidine (Pepcid Iv*) 20 mg IV SLOW PU BID [facility] Last Admin: 11/15/18 07:44 Dose: 20 mg Gabapentin (Neurontin Cap(*)) 600 mg PO TID [facility] Last Admin: 11/15/18 14:14 Dose: 600 mg Promethazine HCl 12.5 mg/ (Sodium Chloride) 50.5 mls @ 202 mls/hr IVPB Q6H PRN PRN Reason: NAUSEA Last Admin: 11/14/18 18:15 Dose: 202 mls/hr Potassium Chloride/Dextrose (D5w 1/2 Ns 40 Meq Kcl 1000 Ml*) 1,000 mls @ 75 mls /hr IV PER RATE [facility] Last Admin: 11/15/18 15:43 Dose: 75 mls/hr Lisinopril (Prinivil Tab*) 10 mg PO DAILY [facility] Last Admin: 11/15/18 07:51 Dose: 10 mg Montelukast Sodium (Singulair Tab*) 10 mg PO DAILY [facility] Last Admin: 11/15/18 07:50 Dose: 10 mg Pto Nf Med* ( Norethindrone Acetate [ Norethindrone Acetate] 0.35 Mg) 0.35 mg PO DAILY [facility] Last Admin: 11/15/18 07:49 Dose: 0.35 mg Nortriptyline HCl (Pamelor Cap*) 40 mg PO DAILY [facility] Last Admin: 11/15/18 07:50 Dose: 40 mg Ondansetron HCl (Zofran Inj*) 4 mg IV Q6H PRN PRN Reason: NAUSEA Last Admin: 11/15/18 00:44 Dose: 4 mg Pantoprazole Sodium (Protonix Iv*) 40 mg IV Q24H [facility] Last Admin: 11/15/18 07:44 Dose: 40 mg Tizanidine HCl (Zanaflex Tab*) 4 mg PO BEDTIME PRN PRN Reason: SPASMS Zolmitriptan (Zomeg (Nf)) 5 mg SL DAILY PRN PRN Reason: MIGRAINE HEADACHE Vital Signs - 8 hr 11/15/18 11/15/18 11/15/18 14:14 15:15 16:13 Temperature 97.8 F Pulse Rate 85 Respiratory 18 16 18 Rate Blood Pressure 135/72 (mmHg) O2 Sat by Pulse 99 Oximetry 11/15/18 17:06 Temperature Pulse Rate Respiratory 18 Rate Blood Pressure (mmHg) O2 Sat by Pulse Oximetry Oxygen Devices in Use Now: None Appearance: Patient is a 48yo female who appears stated age and is sitting in the bed in [facility]. Eyes: No Scleral Icterus, PERRLA Ears/Nose/Mouth/Throat: NL Teeth, Lips, Gums, Clear Oropharnyx, Mucous Membranes Moist Neck: NL Appearance and Movements; NL JVP, Trachea Midline Respiratory: Symmetrical Chest Expansion and Respiratory Effort, Clear to Auscultation Cardiovascular: NL Sounds; No Murmurs; No JVD, RRR, No Edema Abdominal: NL Sounds; No Tenderness; No Distention, - - Tender to Palpation in Epigastric Area. Lymphatic: No Cervical Adenopathy Extremities: No Edema, No Clubbing, Cyanosis Skin: No Rash or Ulcers, No Nodules or Sclerosis Neurological: Alert and Oriented x 3, NL Sensation, NL Muscle Strength and Tone - Nutrition: Malnutrition Diagnosis/Plan Malnutrition Assessment by Registered Dietitian: Malnutrition Assessment Clinical Characteristics Acute,Severe Malnutrition Assessment: Inadequate oral intake - No intake x1 wk Criteria Unintentional wt loss - 8.4% wt loss x1 mo Malnutrition Assessment: Nutrition Supplementals/Nourishments - Offered Interventions pt Apple Ensure Clear, though pt would like to continue trialing broth at this time. If diet is not advanced within 2 days, will offer supplement again. Will provide nourishments as appropriate. GI Related - Pt receiving Zofran and Promethazine PRN for N/V (w/ associated abd pain ) and enemas for constipation. Will monitor GI s /sx for impact on appetite/intake. Malnutrition Assessment: Goals 1) Recommend advancing diet to low acid, low spice as appropriate 2) Adequate intake to support lean body mass and fluid status w/o exacerbation of N/V and abd pain 3) Improve fluid electrolyte balance w/ adequate intake 4) Improve bowel regularity w/ adequate intake w /o exacerbation of constipation or development of diarrhea Result Diagrams: 11/15/18 13:10 11/15/18 13:10 Assess/Plan/Problems-Billing Assessment: Patient is a 48yo female with a PMH for Cyclical Vomiting Syndrome, Migraines, Fibromyalgia, who is admitted for exacerbation of cyclic vomiting syndrome who is improving slowly but is still not tolerating food. - Patient Problems (1) Intractable vomiting with nausea Current Visit: Yes Status: Acute Code(s): R11.2 - NAUSEA WITH VOMITING, UNSPECIFIED SNOMED Code(s): 286556442 Comment: - Improving with Valium, Phenergan, Benadryl, Zofran - Continue fluids and advance diet slowly. - Unclear provoking factor. No signs of infection. - Could be Hormonal, Related to Ulcer/NSAID use. (2) Abdominal pain Current Visit: Yes Status: Acute Code(s): R10.9 - UNSPECIFIED ABDOMINAL PAIN SNOMED Code(s): 44654476 Comment: - Abdominal Pain concerning for ulcer, but could just be related to vomiting - No indication of bleeding at this time. - Trend H/H (3) Migraines Current Visit: Yes Status: Acute Code(s): G43.909 - MIGRAINE, UNSP, NOT INTRACTABLE, WITHOUT STATUS MIGRAINOSUS SNOMED Code(s): 10224579 Comment: - Chronic Migraines - Avoid NSAIDs which patient has been taking at home. (4) Hematemesis Current Visit: Yes Status: Acute Code(s): K92.0 - HEMATEMESIS SNOMED Code( s): 1723222 Comment: - Small volume, likely due to ace-chavis tear. (5) DVT prophylaxis Current Visit: Yes Status: Acute Code(s): Z29.9 - ENCOUNTER FOR PROPHYLACTIC MEASURES, UNSPECIFIED SNOMED Code(s): 598131847 Comment: - SCDs for low risk. (6) Full code status Current Visit: Yes Status: Acute Code(s): Z78.9 - OTHER SPECIFIED HEALTH STATUS SNOMED Code(s): 877682131 Status and Disposition: Observation for Intractable Nausea and inability to tolerate Oral intake.
[2018-11-16] MEDS: Diazepam TAB(*) 5 MG PO PRN (03:19)
[2018-11-16] MEDS: D5W 1/2 NS 40 Meq KCL 1000 ML* 1,000 ML IV SCH (04:57)
[2018-11-16 07:55] LABS: ABS Eosinophils 0.1 10^3/ul (0-0.6); ABS Lymphocytes 2.4 10^3/ul (1.0-4.8); ABS Monocytes 0.4 10^3/ul (0-0.8); ABS Neutrophils 1.3 10^3/ul (1.5-7.7); Eosinophil % 1.6 %; Hematocrit 34 % (35-47); Hemoglobin 11.6 g/dL (12.0-16.0); Lymphocyte % 56.5 %; Mean Corpuscular HGB Conc 34 g/dL (31-36); Mean Corpuscular Hemoglobin 31 pg (27-31); Mean Corpuscular Volume 92 fL (80-97); Mean Platelet Volume 8.5 fL (7.4-10.4); Nucleated Red Blood Cells % 0.1; Platelet Count 161 10^3/uL (150-450); Red Cell Distribution Width 15 % (10-15); White Blood Count 4.2 10^3/uL (3.5-10.8)
[2018-11-16 08:12] LABS: BUN/Creatinine Ratio 8.5 (8-20); Calcium 8.8 mg/dL (8.6-10.3); EGFR African American 131.6 (>60); EGFR Non-African American 108.8 (>60); Potassium 3.6 mmol/L (3.5-5.0)
[2018-11-16 08:18] LABS: Urine Appearance Clear; Urine Bilirubin Negative (Negative); Urine Blood Negative (Negative); Urine Color Straw; Urine Glucose Negative (Negative); Urine Ketones Negative (Negative); Urine Nitrite Negative (Negative); Urine Protein Negative (Negative); Urine Specific Gravity 1.005 (1.010-1.030); Urine Urobilinogen Negative (Negative)
[2018-11-16] MEDS: Gabapentin CAP(*) 300 MG PO SCH (09:15)
[2018-11-16] MEDS: Cetirizine* 10 MG TAB PO SCH (09:15)
[2018-11-16] MEDS: Atenolol TAB* 25 MG PO SCH (09:15)
[2018-11-16] MEDS: Montelukast Sodium TAB* 10 MG PO SCH (09:15)
[2018-11-16] MEDS: Nortriptyline CAP* 10 MG PO SCH (09:15)
[2018-11-16] MEDS: Lisinopril TAB* 10 MG PO SCH (09:15)
[2018-11-16] MEDS: NORETHINDRONE ACETATE PO SCH (09:17)
[2018-11-16] MEDS: Pantoprazole IV* 40 MG IV SCH (09:18)
[2018-11-16] MEDS: Famotidine IV* 10 MG/ML 2 ML (20 mg) IV SLOW PU SCH (09:27)
[2018-11-16 10:19] VITALS: BP 112/74
--- NOTE | 2018-11-16 23:30 | DS ---
DISCHARGE SUMMARY: DATE OF ADMISSION: 11/14/18 DATE OF DISCHARGE: 11/16/18 PRIMARY CARE PROVIDER: Dr. Laurel Quintana. MY ATTENDING WHILE IN THE HOSPITAL: Dr. Elean Lee.* (DICTATED BY FRANDY GAVIRIA) OUTPATIENT FOURDRINIER TENDER: Dr. Cameron Castillo of [facility], as outpatient. PRIMARY DISCHARGE DIAGNOSES: 1. Cyclic vomiting exacerbation. 2. Abdominal pain. 3. Chronic constipation. 4. Dehydration, likely Lilliana-Georges tear. SECONDARY DISCHARGE DIAGNOSES: 1. Chronic migraines. 2. Gallbladder polyp. 3. Fibromyalgia. 4. Irritable bowel syndrome. 5. Hypertension. 6. Undifferentiated fatigue. 7. Chronic pain syndrome. STUDIES DONE WHILE IN THE HOSPITAL: Abdominal x-ray from 11/14/18 read as nonobstructive bowel gas pattern. Gallbladder ultrasound read as no acute pathology in the visualized portion of the abdomen. Of note, there is no gallbladder polyp noted on this ultrasound. MEDICATIONS AT DISCHARGE: 1. Ranitidine 150 mg p.o. daily. 2. Zofran ODT 4 mg p.o. daily. 3. Tizanidine 4 mg p.o. at bedtime as needed. 4. Sucralfate 1 mg p.o. q.6 hours as needed. 5. Promethazine suppository 50 mg p.r. q.4 hours as needed. 6. Pantoprazole 20 mg p.o. daily. 7. Diazepam 5 mg p.o. q.8 hours as needed x30 doses. 8. Tylenol 650 mg p.o. q.6 hours as needed. 9. Tylenol 12.5 mg p.o. daily. 10. Norethindrone 0.35 mg p.o. daily. 11. Ariane 180 mg p.o. daily. 12. Gabapentin 600 mg p.o. t.i.d. 13. Lisinopril 10 mg p.o. daily. 14. Nortriptyline 40 mg p.o. daily. 15. Singulair 10 mg p.o. daily. 16. Zolmitriptan 5 mg p.o. daily. New medications at discharge: 1. Diazepam. 2. Phenergan. 3. Sucralfate. 4. Pantoprazole. Medications discontinued at discharge: None. HOSPITAL COURSE: This is a brief summary of the patient's presentation. For more details, please see history and physical from this author on 11/14/18. In brief, the patient is a 48-year-old female with the past medical history significant for the above, who presented to the emergency department after 1 week of severe nausea, vomiting, and inability to tolerate food which had been getting progressively worse to the point on the morning of her admission she could not stop vomiting. During this time, she vomited up some coffee-ground material and some ev red blood. The patient had a migraine which responded to Zomig. The patient's labs were consistent with dehydration. The patient had normal hemoglobin on admission. The patient had negative CRP of less than 1 on admission. The patient was admitted to the hospital, given antiemetics IV including Zofran, Phenergan, and Valium. The patient was also treated with antacids of Pepcid and pantoprazole IV. The patient improved on the first day in the hospital. The patient did not have bowel movement in a month when she was admitted which she states was not abnormal for her, but she believed was contributing. The patient had an enema which produced a large bowel movement on the first day of her admission. She repeated the enema on the second day of her admission, which did not produce any substantial bowel movements. After her enemas the patient had severe abdominal cramping including severe upper abdominal pain in her epigastric area. The patient on her admission had severe burning in her esophagus after vomiting frequently, but this pain was different from that. The patient's second day in the hospital, her hemoglobin dropped from 14.5 to 11.6 with fluid resuscitation. She had slight transaminitis on her admission likely from dehydration and this trended down. The patient's creatinine went from 0.95 to 0.59. The patient's anion gap also closed during this time. The patient's nausea continued to improve through her hospitalization. The patient was able to tolerate sips of water and Jell-O on 11/15/18 and then was able to tolerate larger gulps of water and Jell-O at a faster pace on 11/16/18. The patient felt ready to go home and attempt to advance her diet at home by herself. On 11/16/18, the patient was stable and amenable for discharge. PHYSICAL EXAMINATION ON DISCHARGE: General: The patient is a 48-year-old female who appears the stated age and sitting comfortably in bed. In no acute distress. Vital Signs: At the time of discharge temperature 98.3, pulse rate of 79, respiratory rate 18, oxygen saturation 100% on room air, and blood pressure 112/74. HEENT: Head normocephalic and atraumatic. Sclerae anicteric. No conjunctival injection. Nasal mucosa moist. Oral mucosa moist. No pharyngeal erythema or exudate. Neck: Supple and nontender. No lymphadenopathy. No carotid bruit auscultated. No JVD. Cardiac: Regular rate and rhythm. No clicks, murmurs, gallops, or rubs. Pulses 2+ in dorsalis pedis, posterior tibialis, and radial areas. Respiratory: Clear to auscultation bilaterally. No wheezes, rales, or rhonchi. Good air exchange bilaterally. Abdomen: Soft, nontender, and nondistended. Bowel sounds present and normoactive in all 4 quadrants. No hepatosplenomegaly. No abdominal bruits auscultated. No hepatojugular reflux. Genitourinary: No suprapubic or CVA tenderness. Skin: Clear and intact. No rashes. Neuro: Cranial nerves II through XII intact. No focal deficits. Alert and oriented x3. Psychiatric: Pleasant and cooperative. DISCHARGE PLAN: The patient will be discharged to home. The patient will have Phenergan suppositories, Zofran ODT, and Valium for antinausea medications. The patient will have Pepcid and pantoprazole for her antacids. There is a possibility the patient has gastric ulcer. The patient did take a significant amount of NSAIDs before arriving to the hospital. The patient has been encouraged to avoid use of NSAIDs until she is able to follow up with her primary care provider. EGD was not pursued while in the hospital due to concern for anesthesia exacerbating the patient's cyclical vomiting syndrome. The patient should follow up with her mortgage underwriter as soon as appointment is available for discussion of endoscopy and colonoscopy which she states she is due for. The patient should continue with advancing her diet back to a regular unrestricted diet per her usual protocol, which she has devised for her cyclic vomiting episodes. The patient should follow up with primary care provider within 1 week and discuss the duration of therapy for her pantoprazole and Zantac. The patient should continue on her blood pressure medications. The patient should continue to follow up with her various specialists including [facility] and Rheumatology and Neurology for management of her chronic pain, fatigue syndromes, and her hormonal management. The patient should continue on her norethindrone at current dose until this is able to be discussed with her OB /TRAINING REPRESENTATIVE. The patient should return to the hospital for passing out, severe abdominal pain, intractable vomiting, or other alarming symptoms. TIME SPENT: Approximately 60 minutes were spent on the discharge of this patient, 30 of which was spent [id number] with the patient obtaining history and physical and discussing treatment plan. FRANDY GAVIRIA [id number]/[facility] #: [id number] MTDMaria L
== END 2018-11-16 11:45 | disposition home or self-care (01) ==
LOC: ED 07:47 → MED 13:14
PROVIDERS: ADMIT Internal Medicine; ATTEND Hospitalist
DX: G43.A0 Cyclical vomiting, in migraine, not intractable (principal); R10.9 Unspecified abdominal pain; K59.00 Constipation, unspecified; E86.0 Dehydration; G43.909 Migraine, unspecified, not intractable, without status migrainosus; K82.4 Cholesterolosis of gallbladder; M79.7 Fibromyalgia; K58.1 Irritable bowel syndrome with constipation; I10 Essential (primary) hypertension; R53.83 Other fatigue; G89.29 Other chronic pain; Z79.899 Other long term (current) drug therapy; K92.0 Hematemesis
CPT/HCPCS: 36415; 74019; 76705; 80048; 80053; 81003; 82150; 83690; 83735; 85025; 86140; 93005; 96361; 96374; 96375; 96376; 99285; A9270-GY; G0378; J1200; J2405; J2550; J3360

== ENCOUNTER 2019-01-12 08:08 | Emergency (ER) | payer BC ==
[2019-01-12 08:31] VITALS: BP 132/84
[2019-01-12] MEDS ORDERED: Tetracaine 0.5% OPTH.SOL 4 ML* 1 DROP BTL BOTH EYES ONE (09:05)
[2019-01-12] MEDS ORDERED: Fluorescein Sodium TOPICAL* 1 MG TEST STRIP OPHTHALMIC ONE (09:06)
--- NOTE | 2019-01-12 09:26 | UC ---
Eye Complaint HPI - HPI Summary HPI Summary: 48 yo female got significant amt of olive oil in her right eye It is burning and she is photophobic she is concerned she go some in her left eye as well has had eyes flushed 2-3 x in past ( dish detergent crystals/bug spray) hx right eye staff infection - History of Current Complaint Chief Complaint: UCEye Stated Complaint: FB IN EYE Time Seen by Provider: 01/12/19 08:59 Hx Obtained From: Patient Hx Last Menstrual Period: dec 27 Onset/Duration: Sudden Onset, Lasting Hours - 1-2 Timing: Constant Severity Initially: Moderate Severity Currently: Moderate Pain Intensity: 3 Pain Scale Used: 0-10 Numeric Location of Injury: Conjunctiva Character: Foreign Body Sensation Aggravating Factor(s): Light Alleviating Factor(s): Darkness Associated Signs And Symptoms: Positive: Photophobia - Risk Factors Penetrating Injury Risk Factor: Negative - Allergies/Home Medications Allergies/Adverse Reactions: Allergies Allergy/AdvReac Type Severity Reaction Status Date / Time codeine Allergy SHALLOW Verified 01/12/19 08:20 BREATHING divalproex sodium Allergy Hallucinati Verified 01/12/19 08:20 [From Depakote] ons hydrocodone Allergy SHALLOW Verified 01/12/19 08:20 BREATHING hydromorphone [From Dilaudid] Allergy SEVERE Verified 01/12/19 08:20 MIGRAINE, GI SYMPTOMS lorazepam [From Ativan] Allergy ANXIETY, Verified 01/12/19 08:20 HALLUCINATIONS metoclopramide [From Reglan] Allergy PANIC Verified 01/12/19 08:20 ATTACKS midazolam [From Versed] Allergy ANXIETY, Verified 01/12/19 08:20 HALLUCINATIONS oxycodone Allergy SHALLOW Verified 01/12/19 08:20 BREATHNG prochlorperazine Allergy TONGUE Verified 01/12/19 08:20 [From Compazine] SWELLING topiramate [From Topamax] Allergy SHAKING Verified 01/12/19 08:20 DHE* Allergy ACCORDING Uncoded 01/12/19 08:20 TO PT PMH/Surg Hx/FS Hx/Imm Hx Previously Healthy: Yes Cardiovascular History: Hypertension, Other Other Cardiovascular History: palpitations Respiratory History: Asthma - Surgical History Surgical History: Yes Surgery Procedure, Year, and Place: bunion removed. sinus surgery 2007. 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, UTERINE POLYP REMOVED 2017 - Family History Known Family History: Positive: Cardiac Disease, Hypertension - Social History Alcohol Use: None Substance Use Type: None Smoking Status (MU): Never Smoked Tobacco Have You Smoked in the Last Year: No Review of Systems All Other Systems Reviewed And Are Negative: Yes Constitutional: Positive: Negative Skin: Positive: Negative Eyes: Positive: Photophobia - R only ENT: Positive: Negative Respiratory: Positive: Negative Cardiovascular: Positive: Negative Gastrointestinal: Positive: Negative Genitourinary: Positive: Negative Motor: Positive: Negative Neurovascular: Positive: Negative Musculoskeletal: Positive: Negative Neurological: Positive: Negative Psychological: Positive: Negative Physical Exam Triage Information Reviewed: Yes Appearance: Well-Appearing, No Pain Distress, Well-Nourished Vital Signs: Initial Vital Signs Temp 99.6 F 01/12/19 08:24 Pulse 84 01/12/19 08:24 Resp 16 01/12/19 08:24 BP 132/84 01/12/19 08:24 Pulse Ox 100 01/12/19 08:24 Vital Signs Reviewed: Yes Eyes: Positive: Conjunctiva Inflamed - R, Other: - neg flourescein staining right eye ENT: Positive: Hearing grossly normal. Negative: Nasal congestion, Nasal drainage, Trismus, Muffled voice, Hoarse voice Dental Exam: Normal Neck: Positive: Supple, Nontender, No Lymphadenopathy Respiratory: Positive: Lungs clear, Normal breath sounds, No respiratory distress Cardiovascular: Positive: RRR, Pulses Normal Musculoskeletal: Positive: ROM Intact, No Edema Neurological: Positive: Alert Psychological Exam: Normal Skin Exam: Normal Re-Evaluation - Re-Evaluation First Eval Re-Evaluation Time: 10:20 Change: Improved Comment: eyes not red, no photophobia Eye Complaint Course/Dx - Differential Dx/Diagnosis Provider Diagnosis: Eye irritation Discharge ED - Sign-Out/Discharge Documenting (check all that apply): Patient Departure All imaging exams completed and their final reports reviewed: No Studies - Discharge Plan Condition: Stable Disposition: HOME Patient Education Materials: [employer] (ED) Referrals: Laurel Quintana MD [Primary Care Provider] - - Billing Disposition and Condition Condition: STABLE Disposition: Home
== END 2019-01-12 10:30 | disposition home or self-care (01) ==
LOC: UCEAST 08:08
DX: H57.11 Ocular pain, right eye (principal); I10 Essential (primary) hypertension; J45.909 Unspecified asthma, uncomplicated; R00.2 Palpitations; Z88.5 Allergy status to narcotic agent
CPT/HCPCS: 99213; A9270-GY; G0463

== ENCOUNTER 2021-03-27 04:01 | Observation (INO) ==
[2021-03-27] MEDS ORDERED: Acetaminophen IV 1 GM/100ML 100 ML IV ONE (04:39)
[2021-03-27 05:19] LABS: ABS Basophils 0.2 10^3/ul (0-0.2); ABS Eosinophils 0.1 10^3/ul (0-0.6); ABS Lymphocytes 1.6 10^3/ul (1.0-4.8); ABS Monocytes 0.6 10^3/ul (0-0.8); ABS Neutrophils 2.4 10^3/ul (1.5-7.7); Eosinophil % 2.9 %; Hematocrit 34 % (35-47); Hemoglobin 10.3 g/dL (12.0-16.0); Mean Corpuscular HGB Conc 31 g/dL (31-36); Mean Corpuscular Hemoglobin 24 pg (27-31); Mean Corpuscular Volume 77 fL (80-97); Mean Platelet Volume 7.1 fL (7.4-10.4); Nucleated Red Blood Cells % 0.1; Platelet Count 374 10^3/uL (150-450); Red Blood Count 4.38 10^6 /uL (3.70-4.87); Red Cell Distribution Width 20 % (10-15); White Blood Count 4.9 10^3/uL (3.5-10.8)
[2021-03-27 05:37] LABS: Albumin 4.6 g/dL (3.2-5.2); Albumin/Globulin Ratio 1.8 (1-3); Calcium 9.4 mg/dL (8.6-10.3); Globulin 2.5 g/dL (2-4); Potassium 3.9 mmol/L (3.5-5.0); Total Bilirubin 0.5 mg/dL (0.2-1.0); Total Protein 7.1 g/dL (6.4-8.9); eGFR CKD-EPI 106.4 (>60)
[2021-03-27 08:15] LABS: Urine Bacteria 1+ (Absent); Urine Red Blood Cell Absent (Absent); Urine Squamous Epithelial Cell Present (Absent); Urine White Blood Cell 2+(11-20/hpf) (Absent)
[2021-03-27 08:29] LABS: Urine Appearance Clear; Urine Bilirubin Negative (Negative); Urine Blood Negative (Negative); Urine Color Amber; Urine Glucose Negative (Negative); Urine Ketones Negative (Negative); Urine Nitrite Positive (Negative); Urine Protein Negative (Negative); Urine Specific Gravity 1.021 (1.002-1.030); Urine Urobilinogen Positive (Negative)
[2021-03-27] MEDS ORDERED: Naloxone 0.4 mg VIAL 0.4 mg/ml 1 ml VIAL ONE (10:31)
[2021-03-27] MEDS ORDERED: Ammonia Inhalant 1 EA AMP ONE (10:33)
[2021-03-27] MEDS ORDERED: Naloxone 0.4 mg VIAL 0.4 mg/ml 1 ml VIAL IV PUSH ONE ×2 (10:58→12:34)
[2021-03-27] MEDS ORDERED: Ammonia Inhalant 1 EA AMP INH ONE (10:58)
[2021-03-27 11:11] LABS: Urine Appearance Clear; Urine Bilirubin Negative (Negative); Urine Blood Negative (Negative); Urine Color Amber; Urine Glucose 1+(50 mg/dL) (Negative); Urine Ketones Negative (Negative); Urine Nitrite Positive (Negative); Urine Protein Negative (Negative); Urine Specific Gravity 1.028 (1.002-1.030); Urine Urobilinogen Positive (Negative)
[2021-03-27 11:18] LABS: Urine Bacteria Absent (Absent); Urine Red Blood Cell Absent (Absent); Urine Squamous Epithelial Cell Present (Absent); Urine White Blood Cell Trace(0-5/hpf) (Absent)
[2021-03-27] MEDS ORDERED: Lactated Ringers 1000 ml BAG 1,000 ML IV ONE (11:49)
[2021-03-27] MEDS ORDERED: Famotidine IV 10 MG/ML 2 ml VIAL (20 mg) IV SLOW PU ONE ×2 (12:34→23:15)
[2021-03-27] MEDS ORDERED: Pantoprazole VIAL 40 MG VIAL IV ONE (12:34)
[2021-03-27] MEDS ORDERED: Ondansetron 4 mg VIAL 2 MG/ML 2 ml VIAL IV ONE (13:34)
[2021-03-27] MEDS ORDERED: NS 0.9% 1000 ml BAG 1,000 ML IV SCH (16:00)
[2021-03-27 16:42] LABS: C Reactive Protein 2.77 mg/L (<8.01)
[2021-03-27] MEDS ORDERED: Albuterol HFA INHALER 8 gm MDI INH PRN (18:58)
[2021-03-27] MEDS ORDERED: cefTRIAXone 1 gm/50 mL NS BAG 1 GM/50 ML BAG IVPB SCH (19:30)
[2021-03-27] MEDS ORDERED: Trimethobenzamide *IM* 100 mg/ml 2 ml VIAL (200 mg) IM PRN (20:54)
[2021-03-27] MEDS ORDERED: Diazepam INJ CARPUJECT 5 MG/ML IV ONE ×2 (21:08→23:16)
[2021-03-27] MEDS ORDERED: Iohexol 350 (CONTRAST) 500 ML MDV IV ONE (21:11)
[2021-03-27] MEDS: Sucralfate 1 gm SUSP 1 GM/10 ML UDC PO SCH ×2 (21:40→21:52)
[2021-03-27] MEDS: Pantoprazole VIAL 40 MG VIAL IV SCH (21:44)
[2021-03-27] MEDS: [UNRECOGNIZED DRUG - OTHER] PO SCH (22:37)
[2021-03-28] MEDS ORDERED: Trimethobenzamide *IM* 100 mg/ml 2 ml VIAL (200 mg) IM PRN (02:12)
[2021-03-28] MEDS ORDERED: diPHENhydraMINE IV 50 MG/ML 1 ml VIAL (BENADRYL) IV ONE ×3 (02:13→09:04)
[2021-03-28] MEDS: Sucralfate 1 gm SUSP 1 GM/10 ML UDC PO SCH ×5 (02:43→23:27)
[2021-03-28] MEDS ORDERED: Diazepam INJ CARPUJECT 5 MG/ML IV ONE ×2 (03:04→09:04)
[2021-03-28 04:58] LABS: ABS Basophils 0.1 10^3/ul (0-0.2); ABS Lymphocytes 1.1 10^3/ul (1.0-4.8); ABS Monocytes 0.4 10^3/ul (0-0.8); ABS Neutrophils 3.1 10^3/ul (1.5-7.7); Eosinophil % 0.4 %; Hematocrit 37 % (35-47); Hemoglobin 11.2 g/dL (12.0-16.0); Lymphocyte % 22.8 %; Mean Corpuscular HGB Conc 30 g/dL (31-36); Mean Corpuscular Hemoglobin 24 pg (27-31); Mean Corpuscular Volume 78 fL (80-97); Mean Platelet Volume 7.2 fL (7.4-10.4); Nucleated Red Blood Cells % 0.1; Platelet Count 314 10^3/uL (150-450); Red Blood Count 4.76 10^6 /uL (3.70-4.87); Red Cell Distribution Width 21 % (10-15); White Blood Count 4.8 10^3/uL (3.5-10.8)
[2021-03-28 05:35] LABS: Calcium 9.1 mg/dL (8.6-10.3)
[2021-03-28 05:40] LABS: eGFR CKD-EPI 111.6 (>60)
[2021-03-28 05:43] LABS: Urine Benzodiazepine Screen Presumptive Positive (None Detect); Urine Buprenorphine Screen None Detected (None Detect); Urine Cannabinoids Screen None Detected (None Detect); Urine Fentanyl Screen None Detected (None Detect); Urine Hydrocodone Screen None Detected (None Detect); Urine Opiates Screen None Detected (None Detect)
[2021-03-28] MEDS: ZOLMITRIPTAN 5 MG PO PRN ×3 (06:43→20:53)
[2021-03-28] MEDS: Pantoprazole VIAL 40 MG VIAL IV SCH ×3 (08:46→20:52)
[2021-03-28] MEDS: [UNRECOGNIZED DRUG - OTHER] PO SCH ×2 (08:50→20:55)
[2021-03-28] MEDS ORDERED: Norethindrone 0.35 mg TAB (NF) PO SCH (09:00)
[2021-03-28] MEDS: Ondansetron 4 mg VIAL 2 MG/ML 2 ml VIAL IV PRN (11:54)
[2021-03-28] MEDS ORDERED: Famotidine IV 10 MG/ML 2 ml VIAL (20 mg) IV SLOW PU ONE (12:30)
[2021-03-28] MEDS: PTO: Norethindrone 0.35 mg TAB (NF) PO SCH (13:49)
[2021-03-28] MEDS: Famotidine IV 10 MG/ML 2 ml VIAL (20 mg) IV SLOW PU PRN (20:52)
[2021-03-29] MEDS: Sucralfate 1 gm SUSP 1 GM/10 ML UDC PO SCH ×2 (05:46→14:57)
[2021-03-29] MEDS: Pantoprazole VIAL 40 MG VIAL IV SCH (09:32)
[2021-03-29] MEDS: Famotidine IV 10 MG/ML 2 ml VIAL (20 mg) IV SLOW PU PRN ×2 (09:34→09:46)
[2021-03-29] MEDS: ZOLMITRIPTAN 5 MG PO PRN (09:45)
[2021-03-29] MEDS: Ondansetron 4 mg VIAL 2 MG/ML 2 ml VIAL IV PRN (09:46)
[2021-03-29] MEDS: PTO: Norethindrone 0.35 mg TAB (NF) PO SCH (12:27)
[2021-03-29] MEDS: [UNRECOGNIZED DRUG - OTHER] PO SCH (12:27)
[2021-03-29 18:33] VITALS: BP 118/73
[2021-03-31] MEDS ORDERED: Scopolamine PATCH Remove NOTE PATCH OFF SCH (01:00)
== END 2021-03-29 16:40 | disposition home or self-care (01) ==
LOC: ED 04:01 → EDHOLD 04:01 → MEDTELE 16:46
PROVIDERS: ADMIT Internal Medicine; ATTEND Internal Medicine

== ENCOUNTER 2021-12-03 19:22 | Inpatient (IN) ==
[2021-12-03] MEDS ORDERED: NS 0.9% 1000 ml BAG 1,000 ML IV ONE (20:40)
[2021-12-03 20:57] LABS: INR 0.97 (0.89-1.11)
[2021-12-03 20:59] LABS: ABS Basophils 0.1 10^3/ul (0-0.2); ABS Lymphocytes 2.6 10^3/ul (1.0-4.8); ABS Monocytes 0.6 10^3/ul (0-0.8); Eosinophil % 0.5 %; Hematocrit 36 % (35-47); Hemoglobin 10.7 g/dL (12.0-16.0); Lymphocyte % 49.3 %; Mean Corpuscular HGB Conc 29 g/dL (31-36); Mean Corpuscular Hemoglobin 22 pg (27-31); Mean Corpuscular Volume 73 fL (80-97); Mean Platelet Volume 7.2 fL (7.4-10.4); Nucleated Red Blood Cells % 0.1; Platelet Count 463 10^3/uL (150-450); Red Blood Count 4.95 10^6 /uL (3.70-4.87); Red Cell Distribution Width 19 % (10-15); White Blood Count 5.3 10^3/uL (3.5-10.8)
[2021-12-03 21:49] LABS: Urine Appearance Clear; Urine Color Yellow
[2021-12-03 21:50] LABS: Urine Bilirubin Negative (Negative); Urine Blood Negative (Negative); Urine Glucose Negative (Negative); Urine Ketones Trace (Negative); Urine Nitrite Negative (Negative); Urine Protein Negative (Negative); Urine Specific Gravity 1.015 (1.005-1.030); Urine Urobilinogen 0.2 (Negative) (Negative)
[2021-12-03 22:00] LABS: ALT 228 U/L (7-52); AST 58 U/L (13-39); Albumin 5.1 g/dL (3.2-5.2); Albumin/Globulin Ratio 1.8 (1-3); Alkaline Phosphatase 147 U/L (35-149); Anion Gap 10 mmol/L (2-11); Blood Urea Nitrogen 11 mg/dL (6-24); CO2 Carbon Dioxide 27 mmol/L (22-32); Calcium 9.8 mg/dL (8.6-10.3); Chloride 100 mmol/L (101-111); Globulin 2.8 g/dL (2-4); Glucose 103 mg/dL (70-100); Magnesium 2.4 mg/dL (1.9-2.7); Sodium 137 mmol/L (135-145); Total Protein 7.9 g/dL (6.4-8.9); eGFR CKD-EPI 97.9 (>60)
[2021-12-03 22:14] LABS: TSH Ultra Thyroid Stim Horm 1.95 mcIU/mL (0.34-5.60)
[2021-12-03 22:16] LABS: Urine Benzodiazepine Screen Presumptive Positive (None Detect); Urine Cannabinoids Screen None Detected (None Detect); Urine Opiates Screen None Detected (None Detect)
[2021-12-04 01:19] LABS: % Iron Saturation 3 % (15-55); Iron 20 ug/dL (50-212); Total Iron Binding Capacity 770 mcg/dL (250-450); Transferrin 550 mg/dL (203-362); Unsaturated Iron Binding 750 ug/dL
[2021-12-04 01:40] LABS: Ferritin 9.2 ng/mL (11-307)
[2021-12-04 01:44] LABS: Folate 13.15 ng/mL (5.90-24.80)
[2021-12-04 01:45] LABS: Vitamin B12 1012 pg/mL (180-914)
[2021-12-04] MEDS ORDERED: Iron Sucrose 200 MG in NS 0.9% 100 ml BAG 100 ML IVPB ONE (02:13)
[2021-12-04] MEDS ORDERED: Iohexol 350 (CONTRAST) 500 ML MDV IV ONE (02:36)
[2021-12-04] MEDS ORDERED: Metoprolol Tartrate 5 mg VIAL 5 ml VIAL (1 mg/ml) IV ONE (03:06)
[2021-12-04] MEDS ORDERED: Ondansetron 4 mg VIAL 2 MG/ML 2 ml VIAL ONE (04:00)
[2021-12-04] MEDS ORDERED: Ondansetron 4 mg VIAL 2 MG/ML 2 ml VIAL IV ONE (04:08)
[2021-12-04] MEDS ORDERED: ZOLMITRIPTAN 2.5 MG PO PRN (04:46)
[2021-12-04 05:22] LABS: Creatine Kinase 25 U/L (10-223)
[2021-12-04] MEDS: Ondansetron 4 mg VIAL 2 MG/ML 2 ml VIAL IV PRN (06:43)
[2021-12-04 06:45] LABS: High Sensitivity Troponin 1 Hr 10 pg/mL (<15)
[2021-12-04] MEDS: Sucralfate 1 gm SUSP 1 GM/10 ML UDC PO SCH ×2 (08:20→19:52)
[2021-12-04] MEDS ORDERED: NF:ZOLMitriptan 5 mg ODT (NF) PO PRN (09:00)
[2021-12-04] MEDS ORDERED: NF: Trospium 20 mg TAB (NF) PO SCH (09:00)
[2021-12-04 13:34] LABS: ALT 182 U/L (7-52); Albumin 4.5 g/dL (3.2-5.2); Albumin/Globulin Ratio 1.7 (1-3); Alkaline Phosphatase 120 U/L (35-149); Blood Urea Nitrogen 12 mg/dL (6-24); CO2 Carbon Dioxide 23 mmol/L (22-32); Calcium 9.4 mg/dL (8.6-10.3); Chloride 99 mmol/L (101-111); Globulin 2.6 g/dL (2-4); Glucose 128 mg/dL (70-100); Sodium 134 mmol/L (135-145); Total Protein 7.1 g/dL (6.4-8.9); eGFR CKD-EPI 107.8 (>60)
[2021-12-04 13:36] LABS: Anion Gap 12 mmol/L (2-11)
[2021-12-04 17:22] LABS: Urine Benzodiazepine Screen None Detected (None Detect); Urine Cannabinoids Screen None Detected (None Detect); Urine Opiates Screen None Detected (None Detect)
[2021-12-04 17:55] LABS: Urine Buprenorphine Screen None Detected (None Detect); Urine Fentanyl Screen None Detected (None Detect); Urine Hydrocodone Screen None Detected (None Detect)
[2021-12-04] MEDS: VIBEGRON 75 MG PO SCH (21:05)
[2021-12-04] MEDS: TROSPIUM CHLORIDE 60 MG PO SCH (22:24)
[2021-12-04] MEDS ORDERED: PHENOBARBITAL IV ONE (22:29)
[2021-12-04] MEDS ORDERED: NS 0.9% IV ONE (22:29)
[2021-12-04] MEDS ORDERED: PHENobarbital IV 65 MG/ML 1 ml VIAL IV ONE (23:00)
[2021-12-04] MEDS ORDERED: TROSPIUM CHLORIDE 60 MG PO ONE (23:58)
[2021-12-05] MEDS: Ondansetron 4 mg VIAL 2 MG/ML 2 ml VIAL IV PRN (01:33)
[2021-12-05 03:44] LABS: Acetaminophen < 15 mcg/mL; Alcohol, S < 13 mg/dL (<13); Salicylate < 2.50 mg/dL (<30)
[2021-12-05] MEDS: PHENobarbital IV 65 MG/ML 1 ml VIAL IV SCH ×3 (05:16→20:46)
[2021-12-05] MEDS ORDERED: PHENobarbital IV 65 MG/ML 1 ml VIAL IV SCH (07:00)
[2021-12-05] MEDS ORDERED: Iron Sucrose 200 MG in NS 0.9% 100 ml BAG 100 ML IVPB SCH (09:00)
[2021-12-05] MEDS: TROSPIUM CHLORIDE 60 MG PO SCH (10:05)
[2021-12-05] MEDS: VIBEGRON 75 MG PO SCH (10:05)
[2021-12-05] MEDS: Sucralfate 1 gm SUSP 1 GM/10 ML UDC PO SCH ×2 (11:54→18:08)
[2021-12-05 13:51] LABS: Hematocrit 32 % (35-47); Mean Corpuscular HGB Conc 32 g/dL (31-36); Mean Corpuscular Hemoglobin 23 pg (27-31); Mean Corpuscular Volume 74 fL (80-97); Mean Platelet Volume 7.2 fL (7.4-10.4); Platelet Count 362 10^3/uL (150-450); Red Blood Count 4.27 10^6 /uL (3.70-4.87); Red Cell Distribution Width 18 % (10-15); White Blood Count 7.4 10^3/uL (3.5-10.8)
[2021-12-05 14:16] LABS: Albumin 4.4 g/dL (3.2-5.2); Albumin/Globulin Ratio 1.8 (1-3); Calcium 9.7 mg/dL (8.6-10.3); Globulin 2.4 g/dL (2-4); Magnesium 2.1 mg/dL (1.9-2.7); Potassium 3.8 mmol/L (3.5-5.0); Total Bilirubin 0.6 mg/dL (0.2-1.0); Total Protein 6.8 g/dL (6.4-8.9); eGFR CKD-EPI 108.6 (>60)
[2021-12-05] MEDS ORDERED: Potassium Chloride LIQUID 20 MEQ/15 ML LIQUID PEG TUBE ONE (17:05)
[2021-12-05] MEDS ORDERED: ZOLMITRIPTAN 5 MG PO PRN (19:58)
[2021-12-06] MEDS ORDERED: TROSPIUM CHLORIDE 60 MG PO SCH (09:00)
[2021-12-06] MEDS: TROSPIUM CHLORIDE 60 MG PO SCH (09:53)
[2021-12-06] MEDS: VIBEGRON 75 MG PO SCH (09:54)
[2021-12-06] MEDS: Sucralfate 1 gm SUSP 1 GM/10 ML UDC PO SCH (09:57)
[2021-12-06 12:30] VITALS: BP 97/69
[2021-12-06 12:38] LABS: Urine Alcohol Negative mg/dL (Cutoff: 10); Urine Barbiturates Presumptive Positive ng/mL; Urine Benzodiazepines Negative; Urine Cocaine Negative; Urine Methadone Negative (Negative); Urine Opiates Negative (Negative); Urine Phencyclidine Negative ng/mL (Cutoff: 25); Urine Tetrahydrocannabinol Negative ng/mL (Cutoff: 50)
[2021-12-12 09:58] LABS: Urine Barbiturates Interp Positive.; Urine Butalbital by GC/MS 14761 ng/mL; Urine Pentobarbital by GC/MS Negative; Urine Phenobarbital by GC/MS Negative; Urine Secobarbital by GC/MS Negative
== END 2021-12-06 15:40 | disposition home or self-care (01) | DRG 53 ==
LOC: ED 19:22 → EDHOLD 19:22 → SUATTDRO 12-04 01:08 → EDHOLD 12-04 23:26 → MEDTELE 12-04 23:32 → SUATTDRO 12-05 13:39
PROVIDERS: ADMIT Internal Medicine; ATTEND Internal Medicine